=== PATIENT | male | born 1955 | race Caucasian/White ===

== ENCOUNTER 2018-02-04 11:09 | Observation (INO) | payer SELFPAY ==
--- NOTE | 2018-02-04 11:59 | ER Document Report ---
ED General - General Chief Complaint: Chest Pain Stated Complaint: CHEST PAIN Time Seen by Provider: 02/04/18 11:48 Mode of Arrival: Ambulatory Information source: Patient, Relative, [facility] Records Notes: 62-year-old male with a [id number]-lngo smoking history, no other reported past medical history presents with complaint of chest pain that started 2 hours prior to arrival while at rest. Patient states that he was watching TV when he had a sudden onset of left arm soreness that radiates now up into his left chest. Patient states that he became nauseous with this pain, diaphoretic pale and l ightheaded. Patient denies any injury to the arm or chest. He denies any prior similar symptoms, recent illness. He takes no medications on a daily basis. TRAVEL OUTSIDE OF THE [place] IN LAST 30 DAYS: No - HPI Onset: Just prior to arrival Onset/Duration: Sudden Quality of pain: Achy Severity: Moderate Associated symptoms: Chest pain, Nausea, Sweating Exacerbated by: Denies Relieved by: Denies Similar symptoms previously: No Recently seen / treated by doctor: No - Related Data Allergies/Adverse Reactions: No Known Allergies Allergy (Verified 02/04/18 17:27) Past Medical History - General Information source: Patient, [facility] Records - Social History Smoking Status: Current Every Day Smoker Cigarette use (# per day): Yes - 20 Smoking Education Provided: Yes - Smoking cessation counseling was provided for 4 minutes at the bedside Frequency of alcohol use: None Drug Abuse: None Lives with: Spouse/Significant other Family History: Reviewed & Not Pertinent Patient has suicidal ideation: No Patient has homicidal ideation: No - Medical History Medical History: Negative - Immunizations Hx Diphtheria, Pertussis, Tetanus Vaccination: Yes Review of Systems - Review of Systems Notes: REVIEW OF SYSTEMS: CONSTITUTIONAL : Denies fever, chills, . Denies recent illness. Denies weight loss, recent hospitalizations. EENT: Denies visual changes, eye pain. Denies sore throat, oral lesions, difficulty swallowing. CARDIOVASCULAR: Denies palpitations. Denies lower extremity edema. RESPIRATORY: Denies cough. Denies shortness of breath, wheezing. GASTROINTESTINAL: Denies abdominal pain or distention. Denies vomiting, or diarrhea. Denies blood in vomitus, stools, or per rectum. Denies black, tarry stools. Denies constipation. GENITOURINARY: Denies difficulty urinating, painful urination, frequency, blood in urine, testicular pain or penile discharge. MUSCULOSKELETAL: Denies back or neck pain or stiffness. Denies joint pain or swelling. SKIN: Denies rash, lesions or sores. HEMATOLOGIC : Denies easy bruising or bleeding. LYMPHATIC: Denies swollen glands. NEUROLOGICAL: Denies confusion or altered mental status. Denies loss of consciousness. Denies dizziness. Denies headache. Denies weakness or paralysis. Denies problems difficulty with ambulation, slurred speech. Denies sensory loss, numbness, or tingling. Denies seizures. PSYCHIATRIC: Denies anxiety or stress. Denies depression, suicidal ideation, or Physical Exam - Vital signs Vitals: Temp Pulse Resp BP Pulse Ox 97.8 F 58 L 28 H 106/77 96 02/04/18 11:14 02/04/18 11:14 02/04/18 11:14 02/04/18 11:14 02/04/18 11:14 - Notes Notes: PHYSICAL EXAMINATION: GENERAL: Well-appearing, well-nourished and in no acute distress. HEAD: Atraumatic, normocephalic. EYES: Pupils equal round and reactive to light, extraocular movements intact, sclera anicteric, conjunctiva are normal. ENT: Nares patent, oropharynx clear without exudates. Moist mucous membranes. NECK: Normal range of motion, supple without lymphadenopathy LUNGS: Mild expiratory wheezing. HEART: Regular rate and rhythm without murmurs ABDOMEN: Soft, nontender, nondistended abdomen. No guarding, no rebound. No masses appreciated. Musculoskeletal: Normal range of motion, no pitting or edema. No cyanosis. NEUROLOGICAL: Cranial nerves grossly intact. Normal speech, normal gait. Normal sensory, motor exams PSYCH: Normal mood, normal affect. SKIN: Warm, Dry, normal turgor, no rashes or lesions noted. Course - Re-evaluation Re-evalutation: Laboratory 02/04/18 02/04/18 02/04/18 11:57 11:57 11:57 WBC 10.5 RBC 4.79 Hgb 15.3 Hct 43.8 MCV 92 MCH 31.8 MCHC 34.8 RDW 13.7 Plt Count 239 Seg Neutrophils % 73.5 Lymphocytes % 15.2 Monocytes % 9.1 Eosinophils % 1.7 Basophils % 0.5 Absolute Neutrophils 7.7 Absolute Lymphocytes 1.6 Absolute Monocytes 1.0 Absolute Eosinophils 0.2 Absolute Basophils 0.1 PT 12.7 INR 0.91 APTT 33.7 Sodium 142.3 Potassium 4.3 Chloride 107 Carbon Dioxide 25 Anion Gap 10 BUN 13 Creatinine 0.83 Est GFR ( Amer) > 60 Est GFR (Non-Af Amer) > 60 Glucose 119 H Calcium 9.5 Total Bilirubin 0.5 Direct Bilirubin 0.3 Neonat Total Bilirubin Not Reportable Neonat Direct Bilirubin Not Reportable Neonat Indirect Bili Not Reportable AST 22 ALT 25 Alkaline Phosphatase 116 Creatine Kinase CK-MB (CK-2) Troponin I NT-Pro-B Natriuret Pep Total Protein 6.6 Albumin 4.2 Lipase 20.2 L Urine Color Urine Appearance Urine pH Ur Specific [place] Urine Protein Urine Glucose (UA) Urine Ketones Urine Blood Urine Nitrite Urine Bilirubin Urine Urobilinogen Ur Leukocyte Esterase Urine WBC (Auto) Urine RBC (Auto) Urine Bacteria (Auto) Urine Ascorbic Acid 02/04/18 02/04/18 02/04/18 11:57 11:57 15:20 WBC RBC Hgb Hct MCV MCH MCHC RDW Plt Count Seg Neutrophils % Lymphocytes % Monocytes % Eosinophils % Basophils % Absolute Neutrophils Absolute Lymphocytes Absolute Monocytes Absolute Eosinophils Absolute Basophils PT INR APTT Sodium Potassium Chloride Carbon Dioxide Anion Gap BUN Creatinine Est GFR ( Amer) Est GFR (Non-Af Amer) Glucose Calcium Total Bilirubin Direct Bilirubin Neonat Total Bilirubin Neonat Direct Bilirubin Neonat Indirect Bili AST ALT Alkaline Phosphatase Creatine Kinase 40 L CK-MB (CK-2) 0.69 Troponin I < 0.012 2.560 NT-Pro-B Natriuret Pep 400 Total Protein Albumin Lipase Urine Color Urine Appearance Urine pH Ur Specific [place] Urine Protein Urine Glucose (UA) Urine Ketones Urine Blood Urine Nitrite Urine Bilirubin Urine Urobilinogen Ur Leukocyte Esterase Urine WBC (Auto) Urine RBC (Auto) Urine Bacteria (Auto) Urine Ascorbic Acid 02/04/18 15:40 WBC RBC Hgb Hct MCV MCH MCHC RDW Plt Count Seg Neutrophils % Lymphocytes % Monocytes % Eosinophils % Basophils % Absolute Neutrophils Absolute Lymphocytes Absolute Monocytes Absolute Eosinophils Absolute Basophils PT INR APTT Sodium Potassium Chloride Carbon Dioxide Anion Gap BUN Creatinine Est GFR ( Amer) Est GFR (Non-Af Amer) Glucose Calcium Total Bilirubin Direct Bilirubin Neonat Total Bilirubin Neonat Direct Bilirubin Neonat Indirect Bili AST ALT Alkaline Phosphatase Creatine Kinase CK-MB (CK-2) Troponin I NT-Pro-B Natriuret Pep Total Protein Albumin Lipase Urine Color YELLOW Urine Appearance CLEAR Urine pH 5.0 Ur Specific [place] 1.033 Urine Protein NEGATIVE Urine Glucose (UA) NEGATIVE Urine Ketones NEGATIVE Urine Blood NEGATIVE Urine Nitrite NEGATIVE Urine Bilirubin NEGATIVE Urine Urobilinogen NEGATIVE Ur Leukocyte Esterase SMALL H Urine WBC (Auto) 9 Urine RBC (Auto) 0 Urine Bacteria (Auto) TRACE Urine Ascorbic Acid NEGATIVE Chest X-Ray 02/04/18 11:57 IMPRESSION: 1. Masslike opacity of the suprahilar right lung, concerning for malignancy. Recommend CT to further evaluate. 2. Pulmonary hyperinflation. Chest CT 02/04/18 12:45 IMPRESSION: 1. There is a spiculated 3.0 x 3.0 cm mass of the suprahilar right upper lobe with adjacent postobstructive airspace disease. There is a probable smaller adjacent spiculated mass measuring 2.5 x 2.1 cm. Findings are in keeping with primary lung malignancy. 2. No evidence of maged or distant metastatic disease. 3. Emphysema. Temp Pulse Resp BP Pulse Ox 97.8 F 58 L 28 H 106/77 96 02/04/18 11:14 02/04/18 11:14 02/04/18 11:14 02/04/18 11:14 02/04/18 11:14 62-year-old male with no reported past medical history but a [id number]-[id number] smoking history presents with complaint of chest pain that occurred while at rest at home just prior to arrival. Patient had associated nausea, diaphoresis and lightheadedness. Patient reports taking 381 mg aspirin prior to arrival. Upon arrival EKG was obtained which does show T wave inversions in the anterior and lateral leads. No ST elevation. No previous EKG for comparison. Patient d oes not appear toxic or dehydrated. He is in no acute distress. Patient did receive sublingual nitroglycerin and reported relief of chest pain. Initial troponin within normal limits. Repeat troponin II 0.56. Lovenox administered. Did discuss findings of likely lung malignancy with the patient and his significant other. Because of the driving limitations, distance to other hospitals the patient and his significant other are requesting transfer to [facility]. 02/04/18 12:46 Chest x-ray reviewed and concerning for malignancy. CT chest with contrast ordered and pending. 02/04/18 17:07 Patient was accepted by hospitalist for chest pain rule out, new spiculated mass in the lungs. Patient was accepted for admission but during there history second troponin was resulted and now 2.5. They stated that they were not going to admit the patient because they "technically did not put in and any admission orders". 02/04/18 17:15 [facility] contacted. 02/04/18 17:16 Lovenox administered. Patient reports that he is currently chest pain-free. Patient is requesting transfer to [facility]. 02/04/18 17:25 [facility] contacted again and a message was left. Awaiting callback. 02/04/18 17:45 Was contacted back by [facility]. Demographics sent and awaiting callback by Dr. Olson 02/04/18 17:57 [facility] called back to state that the patient will be wait listed. He will be the first 1 transferred in the morning after discharge. Both patient and his significant other are comfortable with this. He still remains chest pain-free. I was told that the physician I signed out to does not need to call the hospitalist again in the morning. Was told that Dr. Olson will sign out to Dr. Trevizo. Nicotine patch and as needed pain medications ordered. 02/04/18 18:03 02/04/18 18:08 - Vital Signs Vital signs: Temp Pulse Resp BP Pulse Ox 97.8 F 58 L 28 H 106/77 96 02/04/18 11:14 02/04/18 11:14 02/04/18 11:14 02/04/18 11:14 02/04/18 11:14 - Laboratory Result Diagrams: 02/04/18 11:57 02/04/18 11:57 Laboratory results interpreted by me: 02/04/18 02/04/18 02/04/18 11:57 11:57 15:40 Glucose 119 H Creatine Kinase 40 L Lipase 20.2 L Ur Leukocyte Esterase SMALL H - Diagnostic Test Radiology reviewed: Image reviewed, Reports reviewed - EKG Interpretation by Me EKG shows normal: Sinus rhythm Rate: Normal Rhythm: NSR - T wave inversions in leads V3, V4, V5. When compared to previous EKG there are: Previous EKG unavailable Critical Care Note - Critical Care Note Total time excluding time spent on procedures (mins): 45 - Minutes of critical care time spent in direct contact evaluating and reevaluating the patient, treating symptoms, reviewing labs and studies and speaking with family and consultants excluding any procedures Discharge - Discharge Clinical Impression: Lung mass, Non-ST elevation (NSTEMI) myocardial infarction, Current smoker Chest pain Qualifiers: Chest pain type: unspecified Qualified Code(s): R07.9 - Chest pain, unspecified Condition: Good Disposition: [facility]
[2018-02-04 12:12] LABS: ABSOLUTE BASOPHILS # (AUTO) 0.1 10^3/uL (0.0-0.2); ABSOLUTE EOSINOPHILS # (AUTO) 0.2 10^3/uL (0.0-0.6); ABSOLUTE LYMPHOCYTES (AUTO) 1.6 10^3/uL (0.5-4.7); ABSOLUTE NEUT (AUTO) 7.7 10^3/uL (1.7-8.2); BASOPHILS % (AUTO) 0.5 % (0-2); EOSINOPHILS % (AUTO) 1.7 % (0-6); HEMATOCRIT 43.8 % (37.9-51.0); HEMOGLOBIN 15.3 g/dL (13.5-17.0); LYMPHOCYTES % (AUTO) 15.2 % (13-45); MEAN CORPUSCULAR HEMOGLOBIN 31.8 pg (27.0-33.4); MEAN CORPUSCULAR HGB CONC 34.8 g/dL (32.0-36.0); MEAN CORPUSCULAR VOLUME 92 fl (80-97); MONOCYTES % (AUTO) 9.1 % (3-13); PLATELET COUNT 239 10^3/uL (150-450); RED BLOOD COUNT 4.79 10^6/uL (4.35-5.55); RED CELL DISTRIBUTION WIDTH 13.7 % (11.5-14.0); SEGMENTED NEUTROPHILS % (AUTO) 73.5 % (42-78); TOTAL CELLS COUNTED % (AUTO) 100 %; WHITE BLOOD COUNT 10.5 10^3/uL (4.0-10.5)
[2018-02-04] MEDS ORDERED: NITROGLYCERIN 0.4 MG/TAB 25 TAB/BOTTLE SL ONE (12:15)
[2018-02-04] MEDS ORDERED: NORMAL SALINE 1000 ML 1,000 ML IV ONE (12:15)
[2018-02-04] MEDS ORDERED: ONDANSETRON HCL INJ/PF 4 MG/2 ML SDV IV ONE (12:15)
[2018-02-04 12:19] LABS: INTERNATIONAL RATION (INR) 0.91; PROTHROMBIN TIME 12.7 SEC (11.4-15.4)
[2018-02-04 12:20] LABS: PARTIAL THROMBOPLASTIN TIME 33.7 SEC (23.5-35.8)
--- NOTE | 2018-02-04 12:30 | RADIOLOGY REPORT (SQ) ---
EXAM DESCRIPTION: CHEST 2 VIEWS COMPLETED DATE/TIME: 02/04/2018 12:17 pm REASON FOR STUDY: lower extremity edema COMPARISON: None. EXAM PARAMETERS: NUMBER OF VIEWS: two views TECHNIQUE: Digital Frontal and Lateral radiographic views of the chest acquired. RADIATION DOSE: NA LIMITATIONS: none FINDINGS: LUNGS AND PLEURA: There is a masslike opacity of the suprahilar right lung. Pulmonary hyp erinflation. MEDIASTINUM AND HILAR STRUCTURES: No masses or contour abnormalities. HEART AND VASCULAR STRUCTURES: Heart normal size. No evidence for failure. BONES: Disc degenerative disease of the thoracic spine. HARDWARE: None in the chest. OTHER: No other significant finding. IMPRESSION: 1. Masslike opacity of the suprahilar right lung, concerning for malignancy. Recommend CT to further evaluate. 2. Pulmonary hyperinflation. TECHNICAL DOCUMENTATION: JOB ID: [id number] [employer]- All Rights Reserved Reading location - IP/workstation name: [email or web address]
[2018-02-04 12:31] LABS: ALANINE AMINOTRANSFERASE 25 U/L (21-72); ALBUMIN 4.2 g/dL (3.5-5.0); ALKALINE PHOSPHATASE 116 U/L (38-126); ANION GAP 10 (5-19); ASPARTATE AMINO TRANSFERASE 22 U/L (17-59); BILIRUBIN,DIRECT 0.3 mg/dL (0.0-0.4); BILIRUBIN,TOTAL 0.5 mg/dL (0.2-1.3); BLOOD UREA NITROGEN 13 mg/dL (7-20); CALCIUM 9.5 mg/dL (8.4-10.2); CARBON DIOXIDE 25 mmol/L (22-30); CHLORIDE 107 mmol/L (98-107); GLUCOSE 119 mg/dL (75-110); LIPASE 20.2 U/L (23-300); POTASSIUM 4.3 mmol/L (3.6-5.0); SODIUM 142.3 mmol/L (137-145); TOTAL PROTEIN 6.6 g/dL (6.3-8.2)
[2018-02-04 12:43] LABS: CREATINE KINASE MB 0.69 ng/mL (<4.55); NT PRO BNP 400 pg/mL (5-900)
[2018-02-04 12:47] LABS: TROPONIN I < 0.012 ng/mL
--- NOTE | 2018-02-04 13:15 | EKG REPORT ---
SEVERITY:- ABNORMAL ECG - SINUS RHYTHM NONSPECIFIC INTRAVENTRICULAR CONDUCTION DELAY INFERIOR INFARCT, AGE INDETERMINATE ANTERIOR INFARCT, AGE INDETERMINATE : Confirmed by: Chip Gegier MD 04-Feb-2018 13:14:49
--- NOTE | 2018-02-04 14:20 | RADIOLOGY REPORT (SQ) ---
EXAM DESCRIPTION: CT CHEST WITH COMPLETED DATE/TIME: 02/04/2018 1:53 pm REASON FOR STUDY: Mass concerning for malignancy on chest x-ray COMPARISON: Same day chest radiograph TECHNIQUE: CT scan of the chest performed using helical scanning technique with dynamic intravenous contrast injection. Images reviewed with lung, soft tissue and bone windows. Reconstructed coronal and sagittal MPR and MIP images reviewed. All images stored on PACS. All CT scanners at this facility use dose modulation, iterative reconstruction, and/or weight based d osing when appropriate to reduce radiation dose to as low as reasonably achievable (ALARA). [facility]: Dose Right [facility]: CareDose [facility]: Dose Right [facility]: Teradose 4D [facility]: Mor.sl CONTRAST TYPE AND DOSE: contrast/concentration: Isovue 350.00 mg/ml; Total Contrast Delivered: 80.0 ml; Total Saline Delivered: 55.0 ml RENAL FUNCTION: GFR > 60. RADIATION DOSE: CT Rad equipment meets quality standard of care and radiation dose reduction techniq ues were employed. CTDIvol: 6.4 mGy. DLP: 292 mGy-cm. . LIMITATIONS: None. FINDINGS: LUNGS AND PLEURA: There is a spiculated 3.0 x 3.0 cm mass of the suprahilar right upper lo be with adjacent postobstructive airspace disease. There is a probable smaller adjacent spiculated m ass measuring 2.5 x 2.1 cm. Mild centrilobular and paraseptal emphysema. HILAR AND MEDIASTINAL STRUCTURES: No identified masses or abnormal nodes. HEART AND VASCULAR STRUCTURES: No aneurysm or dissection. No central pulmonary emboli. No pericardi al effusion. HARDWARE: None in the chest. UPPER ABDOMEN: No significant findings. Limited exam. THYROID AND OTHER SOFT TISSUES: No masses. No adenopathy. BONES: No significant finding. OTHER: No other significant finding. IMPRESSION: 1. There is a spiculated 3.0 x 3.0 cm mass of the suprahilar right upper lobe with adjac ent postobstructive airspace disease. There is a probable smaller adjacent spiculated mass measuring 2.5 x 2.1 cm. Findings are in keeping with primary lung malignancy. 2. No evidence of maged or distant metastatic disease. 3. Emphysema. TECHNICAL DOCUMENTATION: JOB ID: [id number] Quality ID # [id number]: Final reports with documentation of one or more dose reduction techniques (e.g., Au tomated exposure control, adjustment of the mA and/or kV according to patient size, use of iterative reconstruction technique) 2010 [employer] [facility] [facility]- All Rights Reserved Reading location - IP/workstation name: [email or web address]
[2018-02-04 16:02] LABS: APPEARANCE,URINE CLEAR; BILIRUBIN,URINE NEGATIVE (NEGATIVE); COLOR,URINE YELLOW; GLUCOSE, URINE NEGATIVE (NEGATIVE); KETONES,URINE NEGATIVE (NEGATIVE); LEUKOCYTE ESTERASE,URINE SMALL (NEGATIVE); NITRITE,URINE NEGATIVE (NEGATIVE); PROTEIN,URINE NEGATIVE (NEGATIVE); URINE SPECIFIC GRAVITY 1.033; UROBILINOGEN,URINE NEGATIVE mg/dL (<2.0)
[2018-02-04] MEDS ORDERED: FENTANYL CITRATE INJ/PF 100 MCG/2 ML AMPUL IV ONE (17:14)
--- NOTE | 2018-02-04 17:21 | EKG REPORT ---
SEVERITY:- ABNORMAL ECG - SINUS RHYTHM NONSPECIFIC INTRAVENTRICULAR CONDUCTION DELAY PROBABLE INFERIOR INFARCT, AGE INDETERMINATE ANTEROLATERAL INFARCT, AGE INDETERMINATE : Confirmed by: Chip Geiger MD 04-Feb-2018 17:20:21
[2018-02-04] MEDS: ENOXAPARIN SODIUM INJ 80 MG/0.8 ML DISP.SYRIN SUBCUT SCH ×2 (17:41→21:22)
--- NOTE | 2018-02-04 17:50 | PDOC CONSULTATION ---
Consultation Consult Date: 02/04/18 Attending physician:: FELICITY PERDOMO Consult reason:: Chest Pain, Lung Mass History of Present Illness Admission Date/PCP: 02/04/18 15:53 BRITT PERRY PA-C Patient complains of: CP History of Present Illness: JEVON MEDEROS is a 62 year old male is no significant past medical history. He is an active smoker, and has a approx 75ppy history. Mr Mederos reports he started having 8/10 chest pain today @ 10am while watching television and having his morning coffee. He described pain as persistent and unchanging. CP finally stopped with the administration of NG x 1 in the ER. He also reports N/V, left arm numbness, sweating, and his reports he lost the color in his face at onset. He denies F/C or acute issues with breathing. CXR in ER had incidental finding of suspected mass in RUL. F/U CT w/contrast showed 3.0 x 3.0 spiculated mass of suprahilar RUL w/ post-obstructive airsapce disease, as well as a probable smaller adjacent spiculated mass measuring 2.5 x 2.1 cm. Per radiology Findings are in keeping with primary lung malignancy. No evidence of maged or distant mets. At the time of my evaluation the patient was resting comfortably in bed with a HR in the mid 60s and on room air. He denies previous episodes of CP or similiar events in the past. He follows with physician 1x a year for annual physical and only takes fish oils and multi-vitamin at home. He was accompanied by at time of evaluation. Past Medical History Cardiac Medical History: Reports: None Pulmonary Medical History: Reports: None EENT Medical History: Reports: None Neurological Medical History: Reports: None Endocrine Medical History: Reports: None Renal/ Medical History: Reports: None Malignancy Medical History: Reports: None GI Medical History: Reports: None Musculoskeltal Medical History: Reports: None, Other - Left Ankle pain/detoriation Skin Medical History: Reports: None Psychiatric Medical History: Reports: None Hematology: Reports: None Past Surgical History Past Surgical History: Reports: None Social History Lives with: Spouse/Significant other Smoking Status: Current Every Day Smoker - Advance Directive Resuscitation Status: Full Code Family History Family History: Mom- from swelling of brain possibly related to polio. DM. Dad- from MS Brother- cancer of unknown origin Sister- COPD Parental Family History Reviewed: Yes Children Family History Reviewed: Yes Sibling(s) Family History Reviewed.: Yes Medication/Allergy Allergies/Adverse Reactions: No Known Allergies Allergy (Verified 02/04/18 17:27) Review of Systems Constitutional: ABSENT: chills, fever(s), headache(s), weight gain, weight loss Cardiovascular: PRESENT: as per HPI Respiratory: PRESENT: as per HPI Gastrointestinal: ABSENT: abdominal pain, constipation, diarrhea, hematemesis, hematochezia Genitourinary: ABSENT: dysuria, hematuria Musculoskeletal: PRESENT: other - chronic left ankle pain Integumentary: ABSENT: rash, wounds Neurological: ABSENT: abnormal speech, confusion, dizziness, focal weakness, syncope Hematologic/Lymphatic: ABSENT: easy bleeding, easy bruising Physical Exam Vital Signs: Temp Pulse Resp BP Pulse Ox 97.8 F 58 L 28 H 106/77 96 02/04/18 11:14 02/04/18 11:14 02/04/18 11:14 02/04/18 11:14 02/04/18 11:14 Intake & Output 02/03/18 02/04/18 02/05/18 06:59 06:59 06:59 Intake Total 1000 Balance 1000 Weight 65.771 kg General appearance: PRESENT: no acute distress, thin Head exam: PRESENT: atraumatic Eye exam: PRESENT: PERRLA Ear exam: PRESENT: normal external ear exam Mouth exam: PRESENT: moist, tongue midline Teeth exam: PRESENT: other - dentures present Neck exam: ABSENT: carotid bruit, JVD, lymphadenopathy, thyromegaly Respiratory exam: PRESENT: other - Good air flow exchange. Possible coarse sounds in LLL and RUL. No wheezing or crackles Cardiovascular exam: PRESENT: RRR, +S1, +S2 Pulses: PRESENT: normal dorsalis pedis pul Vascular exam: PRESENT: normal capillary refill GI/Abdominal exam: PRESENT: soft, other - non-tender. non-distended Extremities exam: PRESENT: other - no edema BLLLE Neurological exam: PRESENT: alert, awake, oriented to person, oriented to place, oriented to time, oriented to situation, CN II-XII grossly intact. ABSENT: motor sensory deficit Psychiatric exam: PRESENT: appropriate affect, normal mood. ABSENT: homicidal ideation, suicidal ideation Results Laboratory Results: 02/04/18 11:57 02/04/18 11:57 02/04/18 02/04/18 02/04/18 11:57 11:57 15:40 WBC 10.5 RBC 4.79 Hgb 15.3 Hct 43.8 MCV 92 MCH 31.8 MCHC 34.8 RDW 13.7 Plt Count 239 Seg Neutrophils % 73.5 Lymphocytes % 15.2 Monocytes % 9.1 Eosinophils % 1.7 Basophils % 0.5 Absolute Neutrophils 7.7 Absolute Lymphocytes 1.6 Absolute Monocytes 1.0 Absolute Eosinophils 0.2 Absolute Basophils 0.1 Sodium 142.3 Potassium 4.3 Chloride 107 Carbon Dioxide 25 Anion Gap 10 BUN 13 Creatinine 0.83 Est GFR ( Amer) > 60 Est GFR (Non-Af Amer) > 60 Glucose 119 H Calcium 9.5 Total Bilirubin 0.5 AST 22 ALT 25 Alkaline Phosphatase 116 Total Protein 6.6 Albumin 4.2 Lipase 20.2 L Urine Color YELLOW Urine Appearance CLEAR Urine pH 5.0 Ur Specific [place] 1.033 Urine Protein NEGATIVE Urine Glucose (UA) NEGATIVE Urine Ketones NEGATIVE Urine Blood NEGATIVE Urine Nitrite NEGATIVE Ur Leukocyte Esterase SMALL H Urine WBC (Auto) 9 Urine RBC (Auto) 0 02/04/18 02/04/18 02/04/18 11:57 11:57 15:20 Creatine Kinase 40 L CK-MB (CK-2) 0.69 Troponin I < 0.012 2.560 NT-Pro-B Natriuret Pep 400 EKG Comments: indeterminate. EKG results x 2. See chart. Possible anterior-inferior infart of undeterminated age. No changes between EKGs. Impressions: Chest X-Ray 02/04/18 11:57 IMPRESSION: 1. Masslike opacity of the suprahilar right lung, concerning for malignancy. Recommend CT to further evaluate. 2. Pulmonary hyperinflation. Chest CT 02/04/18 12:45 IMPRESSION: 1. There is a spiculated 3.0 x 3.0 cm mass of the suprahilar right upper lobe with adjacent postobstructive airspace disease. There is a probable smaller adjacent spiculated mass measuring 2.5 x 2.1 cm. Findings are in keeping with primary lung malignancy. 2. No evidence of maged or distant metastatic disease. 3. Emphysema. Assessment & Plan - Diagnosis (1) Non-ST elevation (NSTEMI) myocardial infarction Is this a current diagnosis for this admission?: Yes (2) Current smoker Is this a current diagnosis for this admission?: Yes (3) Lung mass Is this a current diagnosis for this admission?: Yes - Time Time Spent: 50 to 70 Minutes Smoking Cessation Education: 3 to 10 minutes Medications reviewed and adjusted accordingly: Yes Anticipated discharge: Other - Transfer to facility with open Cath services as soon as possible. - Inpatient Certification Medical Necessity: Other - Patient needs inpatient services to trend EKG/troponins and for Title Clerk services. He also needs further evaluation of lung mass. - Plan Summary Plan Summary: (1) Non-ST elevation (NSTEMI) myocardial infarction Is this a current diagnosis for this admission?: Yes Trending up of troponins suggest NSTEMI. Though STEMI cannot be completely excluded given his EKG in not determinate nor has been read by a patrol deputy sheriff. Serial enzymes and EKGs should be continued and attempt should be made to transfer patient to hospital with Title Clerk services [facility]. Patient is currently stable and reports no symptoms. -recommend stat ASA -case discussed with Cardiology and per there recommendations patient needs to be transferred to OSH with appropriate services -check FLP -continue with telemetry monitoring and w/serial cardiac enzymes + ekgs -cardiac diet -monitor for need for BB -check ECHO and monitor for need for ASIM/ARB (2) Current smoker Is this a current diagnosis for this admission?: Yes -cessation encouraged. consider nicotine replacement therapy (3) Lung mass Is this a current diagnosis for this admission?: Yes -incidental finding. likely needs biopsy. -needs further work-up by oncology and/or pulmonology thank you for this consult. sorry we could not be of further service to you or the patient.
[2018-02-04] MEDS ORDERED: NICOTINE 21 MG/24 HR PATCH.TD24 TD PRN (17:58)
[2018-02-04] MEDS ORDERED: MORPHINE SULFATE 10 MG/ML INJ IV PRN (17:59)
[2018-02-04] MEDS ORDERED: ASPIRIN 81 MG TABLET, CHEWABLE PO ONE (18:07)
[2018-02-04] MEDS ORDERED: ATORVASTATIN CALCIUM 80 MG TABLET PO ONE (19:26)
[2018-02-04] MEDS ORDERED: RINGERS SOLUTION,LACTATED 1,000 ML IV ONE (19:31)
[2018-02-04 20:03] LABS: APPEARANCE,URINE CLEAR; BILIRUBIN,URINE NEGATIVE (NEGATIVE); COLOR,URINE YELLOW; GLUCOSE, URINE NEGATIVE (NEGATIVE); KETONES,URINE NEGATIVE (NEGATIVE); LEUKOCYTE ESTERASE,URINE SMALL (NEGATIVE); NITRITE,URINE NEGATIVE (NEGATIVE); PROTEIN,URINE NEGATIVE (NEGATIVE); URINE SPECIFIC GRAVITY 1.035; UROBILINOGEN,URINE NEGATIVE mg/dL (<2.0)
[2018-02-04 21:25] VITALS: BP 119/65
[2018-02-05] MEDS ORDERED: ASPIRIN 81 MG TABLET, CHEWABLE PO SCH (10:00)
--- NOTE | 2018-02-05 11:39 | EKG REPORT ---
SEVERITY:- ABNORMAL ECG - SINUS RHYTHM NONSPECIFIC INTRAVENTRICULAR CONDUCTION DELAY INFERIOR INFARCT, AGE INDETERMINATE ANTERIOR INFARCT, AGE INDETERMINATE : Confirmed by: Chip Geiger MD 05-Feb-2018 11:38:47
== END 2018-02-04 21:33 | disposition short-term general hospital (02) ==
LOC: ER 11:09 → EH 15:53
PROVIDERS: ADMIT Internal Medicine; ATTEND Internal Medicine
PROC: HZ31ZZZ Individual Counseling for Substance Abuse Treatment, Behavioral (ICD-10-PCS; principal; 2018-02-04)
DX: I21.4 Non-ST elevation (NSTEMI) myocardial infarction (principal); R91.8 Other nonspecific abnormal finding of lung field; R61 Generalized hyperhidrosis; R42 Dizziness and giddiness; R20.0 Anesthesia of skin; R11.2 Nausea with vomiting, unspecified; F17.210 Nicotine dependence, cigarettes, uncomplicated; G89.29 Other chronic pain; M25.572 Pain in left ankle and joints of left foot; Z80.9 Family history of malignant neoplasm, unspecified; Z82.5 Family history of asthma and other chronic lower respiratory diseases; Z82.49 Family history of ischemic heart disease and other diseases of the circulatory system
CPT/HCPCS: 93005; 99406; 99291; 96372; 96361; 96374; 36415; 82553; 82550; 83690; 85025; 85610; 85730; 80053; 81001; 84484; 83880; 71046; 71260; 93010; J2405; J7030; J7120; J1650

== ENCOUNTER → 2018-07-04 | Outpatient (CLI) | payer BC ==
--- NOTE | 2018-07-04 14:41 | RADIOLOGY REPORT (SQ) ---
EXAM DESCRIPTION: CT CHEST WITH COMPLETED DATE/TIME: 07/04/2018 2:03 pm REASON FOR STUDY: C34.11 MALIGNANT NEOPLASM OF UPPER LOBE, RIGHT BRONCHUS OR LUNG C34.11 MALIGNANT NEOPLASM OF UPPER LOBE, RIGHT BRONCHUS OR L COMPARISON: 02/04/2018 TECHNIQUE: CT scan of the chest performed using helical scanning technique with dynamic intravenous contrast injection. Images reviewed with lung, soft tissue and bone windows. Reconstructed coronal and sagittal MPR and MIP images reviewed. All images stored on PACS. All CT scanners at this facility use dose modulation, iterative reconstruction, and/or weight based d osing when appropriate to reduce radiation dose to as low as reasonably achievable (ALARA). [facility]: Dose Right [facility]: CareDose [facility]: Dose Right [facility]: Teradose 4D [facility]: Responsa CONTRAST TYPE AND DOSE: 86 mL Omnipaque 350- low osmolar. RENAL FUNCTION: Creatinine 1 RADIATION DOSE: . LIMITATIONS: None. FINDINGS: LUNGS AND PLEURA: Spiculated 3 cm suprahilar right upper lobe mass on image 39 series 6. This is relatively stable. A 2nd mass located more peripherally in the right upper lobe on the earli er study is no longer present. No new pulmonary masses or nodules. HILAR AND MEDIASTINAL STRUCTURES: No identified masses or abnormal nodes. HEART AND VASCULAR STRUCTURES: No aneurysm or dissection. No central pulmonary emboli. No pericardi al effusion. HARDWARE: Pacemaker/defibrillator. UPPER ABDOMEN: See separate report of the CT of the abdomen. THYROID AND OTHER SOFT TISSUES: No significant finding. BONES: No significant finding. OTHER: No other significant finding. IMPRESSION: Persistent, relatively stable suprahilar right upper lobe lung mass. 2nd mass present o n prior study is no longer evident. The overall appearance is of improvement. TECHNICAL DOCUMENTATION: JOB ID: [id number] Quality ID # [id number]: Final reports with documentation of one or more dose reduction techniques (e.g., Au tomated exposure control, adjustment of the mA and/or kV according to patient size, use of iterative reconstruction technique) 2010 [employer]- All Rights Reserved Reading location - IP/workstation name: [email or web address]
--- NOTE | 2018-07-04 15:07 | RADIOLOGY REPORT (SQ) ---
EXAM DESCRIPTION: CT ABD/PELVIS WITH IV ORAL COMPLETED DATE/TIME: 07/04/2018 2:03 pm REASON FOR STUDY: C34.11 MALIGNANT NEOPLASM OF UPPER LOBE, RIGHT BRONCHUS OR LUNG C34.11 MALIGNANT NEOPLASM OF UPPER LOBE, RIGHT BRONCHUS OR L COMPARISON: None. TECHNIQUE: CT scan of the abdomen and pelvis performed using helical scanning technique with dynamic intravenous contrast injection. Oral contrast. Images reviewed with lung, soft tissue, and bone win dows. Reconstructed coronal and sagittal MPR images reviewed. Delayed images for evaluation of the ur inary system also acquired. All images stored on PACS. All CT scanners at this facility use dose modulation, iterative reconstruction, and/or weight based d osing when appropriate to reduce radiation dose to as low as reasonably achievable (ALARA). [facility]: Dose Right [facility]: CareDose [facility]: Dose Right [facility]: Teradose 4D [facility]: [place] CONTRAST TYPE AND DOSE: contrast/concentration: Isovue 350.00 mg/ml; Total Contrast Delivered: 86.0 ml; Total Saline Delivered: 69.0 ml RENAL FUNCTION: Creatinine 1 RADIATION DOSE: CT Rad equipment meets quality standard of care and radiation dose reduction techniq ues were employed. CTDIvol: 5.0 - 5.4 mGy. DLP: 742 mGy-cm.. LIMITATIONS: None. FINDINGS: LOWER CHEST: See separate report of the CT of the chest. LIVER: Normal size. No masses. No dilated ducts. SPLEEN: Normal size. No focal lesions. PANCREAS: No masses. No significant calcifications. No adjacent inflammation or peripancreatic fluid collections. Pancreatic duct not dilated. GALLBLADDER: No identified stones by CT criteria. No inflammatory changes to suggest cholecystitis. ADRENAL GLANDS: No significant masses or asymmetry. RIGHT KIDNEY AND URETER: No solid masses. No significant calcifications. No hydronephrosis or hyd roureter. LEFT KIDNEY AND URETER: No solid masses. No significant calcifications. No hydronephrosis or hydr oureter. AORTA AND VESSELS: No aneurysm. No dissection. Renal arteries, SMA, celiac without stenosis. RETROPERITONEUM: No retroperitoneal adenopathy, hemorrhage or masses. BOWEL AND PERITONEAL CAVITY: No masses or inflammatory changes. No free fluid or peritoneal masses. APPENDIX: Surgically absent. PELVIS: No mass. No free fluid. Normal bladder. ABDOMINAL WALL: No masses. No hernias. BONES: No significant or acute findings. OTHER: No other significant finding. IMPRESSION: NO SIGNIFICANT OR ACUTE FINDING IN THE ABDOMEN OR PELVIS ON CT SCAN WITH IV CONTRAST. TECHNICAL DOCUMENTATION: JOB ID: [id number] Quality ID # [id number]: Final reports with documentation of one or more dose reduction techniques (e.g., Au tomated exposure control, adjustment of the mA and/or kV according to patient size, use of iterative reconstruction technique) 2010 [employer]- All Rights Reserved Reading location - IP/workstation name: [email or web address]
== END ==
LOC: RAD 12:39
PROVIDERS: ATTEND Physician Assistant Medical
DX: C34.11 Malignant neoplasm of upper lobe, right bronchus or lung (principal)
CPT/HCPCS: 71260; 74177; 82565

== ENCOUNTER 2018-10-07 15:21 | Inpatient (IN) | payer BC ==
[2018-10-07] MEDS ORDERED: NORMAL SALINE 1000 ML 1,000 ML IV ONE (15:42)
[2018-10-07] MEDS ORDERED: ACETAMINOPHEN 325 MG TABLET PO ONE (15:42)
[2018-10-07] MEDS ORDERED: CEFEPIME 2 GM/D5W RTU 2 GM/50 ML RTUPB IV ONE (15:45)
[2018-10-07] MEDS ORDERED: VANCOMYCIN HCL INJ 1000 MG VIAL IV ONE (15:45)
--- NOTE | 2018-10-07 15:49 | ER Document Report ---
ED Medical Screen (RME) - General Chief Complaint: Ankle Pain Stated Complaint: FOOT PAIN Time Seen by Provider: 10/07/18 15:42 Primary Care Provider: MARTINA PURDY PA-C [Primary Care Provider] - Follow up as needed Mode of Arrival: Wheelchair Information source: Patient Notes: 63-year-old male presented to ED for treatment of septic ankle wound. He was se nt by Dr. Cordero for blood work and treatment for sepsis. He did recommend antibiotics and requested that he be called promptly with results of labs and x- rays. Patient does have a elevated temperature with tachycardia and hypotension. Sepsis protocol has been started as well as antibiotics. Patient is alert oriented respirations regular and unlabored. I have greeted and performed a rapid initial assessment of this patient. A comprehensive ED assessment and evaluation of the patient, analysis of test results and completion of medical decision making process will be conducted by an additional ED providers. TRAVEL OUTSIDE OF THE [place] IN LAST 30 DAYS: No - Related Data Allergies/Adverse Reactions: No Known Allergies Allergy (Verified 02/04/18 19:47) Past Medical History Renal/ Medical History: Denies: Hx Peritoneal Dialysis - Immunizations Hx Diphtheria, Pertussis, Tetanus Vaccination: Yes Physical Exam - Vital signs Vitals: Temp Pulse Resp BP Pulse Ox 100.8 F H 138 H 15 75/44 L 94 10/07/18 15:33 10/07/18 15:33 10/07/18 15:33 10/07/18 15:33 10/07/18 15:33 Course - Vital Signs Vital signs: Temp Pulse Resp BP Pulse Ox 100.8 F H 138 H 15 75/44 L 94 10/07/18 15:33 10/07/18 15:33 10/07/18 15:33 10/07/18 15:33 10/07/18 15:33 Doctor's Discharge - Discharge Referrals: MARTINA PURDY PA-C [Primary Care Provider] - Follow up as needed
[2018-10-07] MEDS ORDERED: HYDROCORTISONE SOD SUCCINATE INJ/PF 100 MG/2 ML SDV IV ONE (15:57)
[2018-10-07] MEDS ORDERED: RINGERS SOLUTION,LACTATED 1,000 ML IV ONE ×2 (15:58→19:50)
[2018-10-07 16:20] LABS: HEMATOCRIT 38.8 % (37.9-51.0); HEMOGLOBIN 12.9 g/dL (13.5-17.0); MEAN CORPUSCULAR HEMOGLOBIN 31.6 pg (27.0-33.4); MEAN CORPUSCULAR HGB CONC 33.2 g/dL (32.0-36.0); MEAN CORPUSCULAR VOLUME 95 fl (80-97); PLATELET COUNT 95 10^3/uL (150-450); RED BLOOD COUNT 4.08 10^6/uL (4.35-5.55); RED CELL DISTRIBUTION WIDTH 15.6 % (11.5-14.0); WHITE BLOOD COUNT 13.5 10^3/uL (4.0-10.5)
[2018-10-07 16:22] LABS: INTERNATIONAL RATION (INR) 1.27
[2018-10-07 16:27] LABS: ALKALINE PHOSPHATASE 228 U/L (38-126); ANION GAP 15 (5-19); ASPARTATE AMINO TRANSFERASE 43 U/L (17-59); BILIRUBIN,DIRECT 1.9 mg/dL (0.0-0.4); BILIRUBIN,TOTAL 3.1 mg/dL (0.2-1.3); BLOOD UREA NITROGEN 33 mg/dL (7-20); CALCIUM 9.7 mg/dL (8.4-10.2); CARBON DIOXIDE 22 mmol/L (22-30); CHLORIDE 92 mmol/L (98-107); POTASSIUM 3.7 mmol/L (3.6-5.0); TOTAL PROTEIN 5.3 g/dL (6.3-8.2)
--- NOTE | 2018-10-07 16:31 | ER Document Report ---
ED General - General Chief Complaint: Ankle Pain Stated Complaint: FOOT PAIN Time Seen by Provider: 10/07/18 15:42 Mode of Arrival: Wheelchair Notes: Patient is a 63-year-old male with history of stage III lung cancer that presents to the emergency department for chief complaint of fever, left leg redness and swelling. Patient reports he has been having on and off fevers for the past month or so, but noticed on his left leg the redness and streaking up his leg over the past 2 days, he was at his oncologist office today, and they are concerned because he was tachycardic, overall did not look well. He is currently on steroids and CellCept, for an autoimmune hepatitis, that he got from 1 of the treatments for his lung cancer. He had a fever of 101 F, and was borderline hypotensive in the office. He states that he has been lightheaded but has not passed out. He currently rates his pain as a 6 out of 10 in his left ankle, and is worse with putting any weight on it. He said less of an appetite recently as well, and has felt his heart racing. He denies having chest pain or shortness of breath. Denies having any nausea or vomiting. Past Medical History: Stage III lung carcinoma, CAD Past Surgical History: Pacemaker Social History: Former smoker, denies alcohol or drug use. Family History: Reviewed and noncontributory for presenting illness Allergies: Reviewed, see documented allergy list. REVIEW OF SYSTEMS: Other than noted above, the 12 point review of systems was reviewed with the patient and were negative, all pertinent findings are included in the HPI. PHYSICAL EXAMINATION: Vital signs reviewed, nursing noted reviewed. GENERAL: Ill-appearing male, appears uncomfortable. HEAD: Atraumatic, normocephalic. EYES: Eyes appear normal, extraocular movements intact, sclera anicteric, conjunctiva are normal. ENT: nares patent, oropharynx clear without exudates. Moist mucous membranes. NECK: Normal range of motion, supple without lymphadenopathy LUNGS: Lung sounds diminished on exam, but no wheezing, rhonchi or rales. HEART: Heart rate tachycardic, regular rhythm, no audible murmur ABDOMEN: Soft, nontender, normoactive bowel sounds. No rebound, guarding, or rigidity. No masses appreciated. EXTREMITIES: Left ankle is erythematous, and tender to palpate, with lymphangit is extending up the left leg, no calf tenderness. The rest the patient's extremity exam is grossly unremarkable. With good range of motion and nontender in the other extremities. NEUROLOGICAL: No focal neurological deficits. Moves all extremities spontaneously Motor and sensory grossly intact on exam. PSYCH: Normal mood, normal affect. SKIN: Warm, Dry, normal turgor, the left ankle is erythematous and swollen, with lymphangitis streaking up the left leg TRAVEL OUTSIDE OF THE [place] IN LAST 30 DAYS: No - Related Data Allergies/Adverse Reactions: No Known Allergies Allergy (Verified 02/04/18 19:47) Past Medical History - General Information source: Patient - Social History Smoking Status: Former Smoker Family History: Reviewed & Not Pertinent Renal/ Medical History: Denies: Hx Peritoneal Dialysis - Immunizations Hx Diphtheria, Pertussis, Tetanus Vaccination: Yes Physical Exam - Vital signs Vitals: Temp Pulse Resp BP Pulse Ox 100.8 F H 138 H 15 75/44 L 94 10/07/18 15:33 10/07/18 15:33 10/07/18 15:33 10/07/18 15:33 10/07/18 15:33 Course - Re-evaluation Re-evalutation: Patient seen and examined vital signs reviewed. Laboratory data and imaging were ordered as appropriate for the patient's presenting symptoms and complaint, with consideration of any critical or life threatening conditions that may be associated with their obtained history and exam as noted above. Patient was treated with IV fluid bolusing, for resuscitation, as the patient was initially hypotensive and tachycardic, he started on broad-spectrum antibiotics with cefepime 2 g, and vancomycin 1 g. Results were reviewed when available and demonstrated leukocytosis, with significantly elevated lactic acid, and hyperglycemia, consistent with severe sepsis, secondary to cellulitis as noted on exam. The patient was re-evaluated and was improving, blood pressure was stable, map greater than 65 after fluids, heart rate came down to the low 100s. Evaluation was most consistent with severe sepsis, secondary to cellulitis, leukocytosis Results were discussed with the patient at this point after careful consideration I feel that that patient should be admitted to the hospital. This was discussed with the patient that it is in the best interest for their care to be admitted for further evaluation and management. Patient agreed with this plan of care. A call was placed to the admitting physician, Dr. Shah who graciously accepted the patient onto their service. *Note is created using voice recognition software and may contain spelling, syntax or grammatical errors. Laboratory 10/07/18 10/07/18 10/07/18 15:55 15:55 15:55 WBC 13.5 H RBC 4.08 L Hgb 12.9 L Hct 38.8 MCV 95 MCH 31.6 MCHC 33.2 RDW 15.6 H Plt Count 95 L Lymph % (Auto) Not Reportable [place] % (Auto) Not Reportable Eos % (Auto) Not Reportable Baso % (Auto) Not Reportable Absolute Neuts (auto) Not Reportable Absolute Lymphs (auto) Not Reportable Absolute Monos (auto) Not Reportable Absolute Eos (auto) Not Reportable Absolute Basos (auto) Not Reportable Total Counted 100 Seg Neutrophils % Not Reportable Seg Neuts % (Manual) 70 Band Neutrophils % 27 H Lymphocytes % (Manual) 0 L Monocytes % (Manual) 1 L Eosinophils % (Manual) 0 Basophils % (Manual) 0 Metamyelocytes % 2 H Abs Neuts (Manual) 13.4 H Abs Lymphs (Manual) 0.0 L Abs Monocytes (Manual) 0.1 Absolute Eos (Manual) 0.0 Abs Basophils (Manual) 0.0 Platelet Comment DECREASED Anisocytosis 1+ PT 16.0 H INR 1.27 Sodium 129.3 L Potassium 3.7 Chloride 92 L Carbon Dioxide 22 Anion Gap 15 BUN 33 H Creatinine 1.09 Est GFR ( Amer) > 60 Est GFR (MDRD) Non-Af > 60 Glucose 498 H* POC Glucose Lactic Acid Calcium 9.7 Total Bilirubin 3.1 H Direct Bilirubin 1.9 H Neonat Total Bilirubin Not Reportable Neonat Direct Bilirubin Not Reportable Neonat Indirect Bili Not Reportable AST 43 ALT 57 Alkaline Phosphatase 228 H Total Protein 5.3 L Albumin 3.0 L 10/07/18 10/07/18 15:55 16:05 WBC RBC Hgb Hct MCV MCH MCHC RDW Plt Count Lymph % (Auto) [place] % (Auto) Eos % (Auto) Baso % (Auto) Absolute Neuts (auto) Absolute Lymphs (auto) Absolute Monos (auto) Absolute Eos (auto) Absolute Basos (auto) Total Counted Seg Neutrophils % Seg Neuts % (Manual) Band Neutrophils % Lymphocytes % (Manual) Monocytes % (Manual) Eosinophils % (Manual) Basophils % (Manual) Metamyelocytes % Abs Neuts (Manual) Abs Lymphs (Manual) Abs Monocytes (Manual) Absolute Eos (Manual) Abs Basophils (Manual) Platelet Comment Anisocytosis PT INR Sodium Potassium Chloride Carbon Dioxide Anion Gap BUN Creatinine Est GFR ( Amer) Est GFR (MDRD) Non-Af Glucose POC Glucose 492 H* Lactic Acid 5.9 H Calcium Total Bilirubin Direct Bilirubin Neonat Total Bilirubin Neonat Direct Bilirubin Neonat Indirect Bili AST ALT Alkaline Phosphatase Total Protein Albumin Ankle X-Ray 10/07/18 15:42 IMPRESSION: 1. Moderate to moderate severe arthritic changes at the left ankle maybe on the basis of inflammatory arthrititides. Soft tissue swelling. Correlation suggested. 2. No acute fracture. Chest X-Ray 10/07/18 15:42 IMPRESSION: 1. Significant interval increase in size of the right suprahilar--right upper lobe mass since the prior study dated 02/04/2018. Further evaluation with CT chest with IV contrast suggested. 2. Left-sided cardiac pacemaker, new finding since the prior examination. - Vital Signs Vital signs: Temp Pulse Resp BP Pulse Ox 100.8 F H 138 H 15 75/44 L 94 10/07/18 15:33 10/07/18 15:33 10/07/18 15:33 10/07/18 15:33 10/07/18 15:33 - Laboratory Result Diagrams: 10/07/18 15:55 10/07/18 15:55 Laboratory results interpreted by me: 10/07/18 10/07/18 10/07/18 15:55 15:55 15:55 WBC 13.5 H RBC 4.08 L Hgb 12.9 L RDW 15.6 H Plt Count 95 L Band Neutrophils % 27 H Lymphocytes % (Manual) 0 L Monocytes % (Manual) 1 L Metamyelocytes % 2 H Abs Neuts (Manual) 13.4 H Abs Lymphs (Manual) 0.0 L PT 16.0 H Sodium 129.3 L Chloride 92 L BUN 33 H Glucose 498 H* POC Glucose Lactic Acid Total Bilirubin 3.1 H Direct Bilirubin 1.9 H Alkaline Phosphatase 228 H Total Protein 5.3 L Albumin 3.0 L 10/07/18 10/07/18 15:55 16:05 WBC RBC Hgb RDW Plt Count Band Neutrophils % Lymphocytes % (Manual) Monocytes % (Manual) Metamyelocytes % Abs Neuts (Manual) Abs Lymphs (Manual) PT Sodium Chloride BUN Glucose POC Glucose 492 H* Lactic Acid 5.9 H Total Bilirubin Direct Bilirubin Alkaline Phosphatase Total Protein Albumin - EKG Interpretation by Me Additional EKG results interpreted by me: EKG demonstrates sinus tachycardia with a ventricular rate of 112 bpm, left axis deviation, QTC 440 ms, rare PVC noted. No ST elevation. This is compared to prior EKG from 02/04/2018. Critical Care Note - Critical Care Note Total time excluding time spent on procedures (mins): 38 Comments: Critical care time 38 minutes exclusive from separate billable procedures for a patient requiring complex medical decision making, and high potential for clinical deterioration. In a patient with severe sepsis, requiring fluid resuscitation, close monitoring, and ultimately admission to the hospital. Time spent obtaining history from patient or surrogate, discussions with consultants, development of treatment plan with patient or surrogate, evaluation of patient's response to treatment, examination of patient, ordering and performing treatments and interventions, ordering and review of laboratory studies, re- evaluation of patient's condition, ordering and review of radiographic studies and review of old charts Discharge - Discharge Clinical Impression: Severe sepsis, Hyperglycemia Cellulitis Qualifiers: Site of cellulitis: extremity Site of cellulitis of extremity: lower extremity Laterality: left Qualified Code(s): L03.116 - Cellulitis of left lower limb Leukocytosis Qualifiers: Leukocytosis type: bandemia Qualified Code(s): D72.825 - Bandemia Condition: Serious Disposition: ADMITTED INPATIENT Admitting Provider: Pablo (Hospitalist) Unit Admitted: [facility]
[2018-10-07] MEDS ORDERED: FENTANYL CITRATE INJ/PF 100 MCG/2 ML AMPUL IV ONE (16:43)
[2018-10-07 16:44] LABS: GLUCOSE 498 mg/dL (75-110)
[2018-10-07 16:45] LABS: ABSOLUTE MONOCYTES # (MANUAL) 0.1 10^3/uL (0.1-1.4); BASOPHILS % (MANUAL) 0 % (0-2); EOSINOPHILS % (MANUAL) 0 % (0-6); LYMPHOCYTES % (MANUAL) 0 % (13-45); METAMYELOCYTES % (MANUAL) 2 % (0); MONOCYTES % (MANUAL) 1 % (3-13); SEGMENTED NEUTROPHILS % (MAN) 70 % (42-78); TOTAL CELLS COUNTED 100
[2018-10-07 16:46] LABS: ANISOCYTOSIS 1+; PLATELET COMMENT DECREASED
[2018-10-07 16:50] LABS: BAND NEUTROPHILS % (MANUAL) 27 % (3-5)
--- NOTE | 2018-10-07 17:42 | RADIOLOGY REPORT (SQ) ---
EXAM DESCRIPTION: ANKLE LEFT COMPLETE COMPLETED DATE/TIME: 10/07/2018 4:36 pm REASON FOR STUDY: cellulitis COMPARISON: None. NUMBER OF VIEWS: Three views. TECHNIQUE: AP, lateral, and oblique radiographic images acquired of the left ankle. LIMITATIONS: None. FINDINGS: MINERALIZATION: Osteopenia. BONES: Moderate severe narrowing at the ankle joint with subchondral cystic changes and mild subchon dral sclerosis. No acute fracture. Small plantar calcaneal spur. JOINTS: See above. SOFT TISSUES: Soft tissue swelling. OTHER: No other significant finding. IMPRESSION: 1. Moderate to moderate severe arthritic changes at the left ankle maybe on the basis o f inflammatory arthrititides. Soft tissue swelling. Correlation suggested. 2. No acute fracture. TECHNICAL DOCUMENTATION: JOB ID: [id number] [employer]- All Rights Reserved Reading location - IP/workstation name: [email or web address]
--- NOTE | 2018-10-07 17:42 | RADIOLOGY REPORT (SQ) ---
EXAM DESCRIPTION: CHEST 2 VIEWS COMPLETED DATE/TIME: 10/07/2018 4:36 pm REASON FOR STUDY: sepsis COMPARISON: 02/04/2018. EXAM PARAMETERS: NUMBER OF VIEWS: two views TECHNIQUE: Digital Frontal and Lateral radiographic views of the chest acquired. RADIATION DOSE: NA LIMITATIONS: none FINDINGS: LUNGS AND PLEURA: Significant interval increase in size of the right suprahilar--right up per lung mass measures approximately 8.0 cm, since the prior study dated 02/04/2018. The left lung r emains clear. No pneumothorax or pleural effusion. MEDIASTINUM AND HILAR STRUCTURES: No masses or contour abnormalities. HEART AND VASCULAR STRUCTURES: Heart normal size. No evidence for failure. BONES: No acute findings. HARDWARE: Left-sided cardiac pacemaker, new finding since the prior study. OTHER: No other significant finding. IMPRESSION: 1. Significant interval increase in size of the right suprahilar--right upper lobe mass since the prior study dated 02/04/2018. Further evaluation with CT chest with IV contrast suggested . 2. Left-sided cardiac pacemaker, new finding since the prior examination. COMMENT: 1. Results of this examination were discussed with emergency department provider on 019 at 16:41 hours. TECHNICAL DOCUMENTATION: JOB ID: [id number] [employer]- All Rights Reserved Reading location - IP/workstation name: [email or web address]
[2018-10-07] MEDS ORDERED: INSULIN REG, HUMAN 100 UNIT/ML 3 ML VIAL (PYX) IV ONE (18:10)
[2018-10-07] MEDS ORDERED: OXYCODONE-ACETAMINOPHEN 5-325 MG TABLET PO PRN (19:59)
[2018-10-07] MEDS ORDERED: ACETAMINOPHEN 325 MG TABLET PO PRN (19:59)
[2018-10-07] MEDS ORDERED: PROMETHAZINE HCL 25 MG TABLET PO PRN (19:59)
[2018-10-07] MEDS ORDERED: MAG HYDROX/AL HYDROX/SIMETH SUSP 30 ML UDCUP PO PRN (19:59)
[2018-10-07] MEDS ORDERED: NORMAL SALINE 1000 ML 1,000 ML IV PRN ×2 (19:59→20:51)
[2018-10-07] MEDS ORDERED: DEXTROSE 40% GEL 15 GM TUBE PO PRN ×2 (20:08)
[2018-10-07] MEDS ORDERED: DEXTROSE 50%-WATER 25 GM/50 ML DISP.SYRIN IV PRN ×2 (20:08)
[2018-10-07] MEDS ORDERED: GLUCAGON,HUMAN RECOMB 1 MG INJ IM PRN (20:08)
[2018-10-07] MEDS ORDERED: VANCOMYCIN HCL 0 MG in DEXTROSE 5%-WATER 250 ML IV NR (20:15)
[2018-10-07] MEDS ORDERED: TRAZODONE HCL 50 MG TABLET PO PRN (20:27)
--- NOTE | 2018-10-07 21:18 | PDOC H&P ---
History of Present Illness Admission Date/PCP: 10/07/18 17:29 Patient complains of: Left ankle and lower leg pain History of Present Illness: JEVON MEDEROS is a 63 year old male currently being treated for right lung cancer. He was at his oncologist office and was directed to report to the emergency department. The patient states that over the last 2 to 3 days he noticed increasing redness and discomfort on the left medial malleolus area. 3 to 4 years ago he sprained his left ankle. Despite attempts at fusion the ankle is never been the same. This redness is new however. The patient reports Rigor's, chills and fever over the last several days. He is experienced nausea without vomiting. He did have an episode of diarrhea earlier today. Because of his malignancy and subsequent treatment he has noticed decreased appetite over several weeks. Has reported weight loss. He does try to drink an adequate amount of fluids daily. Unfortunately, the patient exhibits increased total bilirubin, increased lactic acid, mean arterial pressure less than 70 and thrombocytopenia with platelet count of 95. This meets the criteria for sepsis. He was given IV fluids and antibiotics in the emergency department and referred to the hospitalist service for admission. Past Medical History Cardiac Medical History: Reports: Congestive Heart Failure - Ejection fraction 25%, Myocardial Infarction Pulmonary Medical History: Denies: Asthma, Chronic Obstructive Pulmonary Disease (COPD), Pneumonia EENT Medical History: Denies: Cataracts, Ears, Nose Neurological Medical History: Denies: Hemorrhagic CVA, Ischemic CVA, Migraine Endocrine Medical History: Reports: Diabetes Mellitus Type 2 Denies: Hypothyroidism, Obesity Renal/ Medical History: Denies: Chronic Kidney Disease, Nephrolithiasis Malignancy Medical History: Reports: Lung Cancer GI Medical History: Denies: Cirrhosis, Gastroesophageal Reflux Disease, Hepatitis, Hiatal Hernia, Peptic Ulcer Disease Musculoskeltal Medical History: Reports: Arthritis Denies: Fibromyalgia, Gout Skin Medical History: Denies: Eczema, Psoriasis Psychiatric Medical History: Reports: Tobacco Dependency Denies: Alcohol Dependency, Bipolar Disorder, Dementia, General Anxiety Disorder, Post Traumatic Stress Disorder, Substance Abuse Traumatic Medical History: Reports: None Hematology: Reports: None Infectious Medical History: Reports: None Past Surgical History Past Surgical History: Reports: Orthopedic Surgery - Effusion left ankle, Other - Implantable defibrillator Social History Information Source: Patient Lives with: Spouse/Significant other Smoking Status: Current Every Day Smoker - Smokes 4 cigarettes/day. Has been trying to quit. Frequency of Alcohol Use: None Hx Recreational Drug Use: No Drugs: None Hx Prescription Drug Abuse: No - Advance Directive Resuscitation Status: Full Code Surrogate healthcare decision maker:: The patient's significant other, Sarahy Rodriguez, is the decision maker. The patient does not have formal documentation and I encouraged completion of a healthcare proxy form during this admission. Family History Family History: CAD, Malignancy - Many family members with malignancy, Other - Hydrocephalus Parental Family History Reviewed: Yes Children Family History Reviewed: Yes Sibling(s) Family History Reviewed.: Yes Medication/Allergy Home Medications: Multivitamin [One-A-Day Essential] 1 each PO DAILY 02/04/18 [place]-3 Fatty Acids/Fish Oil [Fish Oil 1,000 Mg Capsule] 1 each PO DAILY 02/04/18 Aspirin [Ecotrin 81 mg EC Tablet] 81 mg PO DAILY 10/07/18 Atorvastatin Calcium [Lipitor 80 mg Tablet] 80 mg PO QHS 10/07/18 Clopidogrel Bisulfate [Plavix 75 mg Tablet] 75 mg PO DAILY 10/07/18 Isosorbide Mononitrate [Ismo 20 Mg Tablet] 20 mg PO BID 10/07/18 Lisinopril [Prinivil 5 mg Tablet] 2.5 mg PO DAILY 10/07/18 Metformin HCl [Metformin HCl ER] 1,000 mg PO DAILY 10/07/18 Metoprolol Tartrate [Lopressor 25 mg Tablet] 12.5 mg PO Q12 10/07/18 Mycophenolate Mofetil [Cellcept] 500 mg PO Q12 10/07/18 Prednisone 20 mg PO Q8 10/07/18 Allergies/Adverse Reactions: No Known Allergies Allergy (Verified 02/04/18 19:47) Review of Systems Constitutional: PRESENT: anorexia, chills, fever(s), weight loss. ABSENT: headache(s), night sweats Eyes: ABSENT: visual disturbances Ears: ABSENT: hearing changes Nose, Mouth, and Throat: ABSENT: headache(s), mouth pain, sore throat Cardiovascular: ABSENT: chest pain, edema, orthropnea, palpitations Respiratory: ABSENT: cough, dyspnea, hemoptysis, sputum Gastrointestinal: PRESENT: diarrhea, nausea. ABSENT: abdominal pain, coffee ground emesis, constipation, heartburn, hematemesis, hematochezia, vomiting Genitourinary: ABSENT: difficulty urinating, dysuria, hematuria, nocturia Musculoskeletal: PRESENT: joint swelling - Left ankle. ABSENT: back pain, muscle weakness Integumentary: PRESENT: erythema - Left ankle. ABSENT: diaphoresis, pruritus, rash, wounds Neurological: ABSENT: abnormal speech, confusion, memory loss, numbness, paresthesias, syncope, tremor(s) Psychiatric: ABSENT: anxiety, depression, hallucinations Endocrine: ABSENT: cold intolerance, flushing, heat intolerance, polydipsia, polyphagia, polyuria Hematologic/Lymphatic: ABSENT: easy bleeding, easy bruising Allergic/Immunologic: ABSENT: seasonal rhinorrhea Physical Exam Vital Signs: Temp Pulse Resp BP Pulse Ox 98.2 F 138 H 22 H 88/51 L 95 10/07/18 19:30 10/07/18 15:33 10/07/18 19:30 10/07/18 19:30 10/07/18 19:30 Intake & Output 10/06/18 10/07/18 10/08/18 06:59 06:59 06:59 Intake Total 2049 Balance 2049 Weight 54.885 kg General appearance: PRESENT: cooperative, mild distress, thin, well-developed Head exam: PRESENT: atraumatic, normocephalic Eye exam: PRESENT: conjunctiva pink, EOMI, PERRLA. ABSENT: nystagmus, scleral icterus Ear exam: PRESENT: normal external ear exam. ABSENT: bleeding, drainage Mouth exam: PRESENT: dry mucosa, neck supple, tongue midline, other - Coated tongue Teeth exam: ABSENT: dental tenderness, poor dentation Neck exam: PRESENT: full ROM. ABSENT: carotid bruit, JVD, lymphadenopathy, tracheostomy Respiratory exam: PRESENT: clear to auscultation corey, symmetrical, unlabored, other - Implantable defibrillator left upper chest. ABSENT: accessory muscle use, chest wall tenderness, rales, rhonchi, tachypnea, wheezes Cardiovascular exam: PRESENT: RRR, +S1, +S2 Pulses: PRESENT: normal radial pulses, normal dorsalis pedis pul Vascular exam: PRESENT: normal capillary refill. ABSENT: pallor GI/Abdominal exam: PRESENT: normal bowel sounds, soft. ABSENT: distended, guarding, tenderness Rectal exam: PRESENT: deferred Gentrourinary exam: ABSENT: indwelling catheter Extremities exam: PRESENT: joint swelling - Left ankle. ABSENT: calf tenderness, pedal edema Musculoskeletal exam: PRESENT: ambulatory, normal inspection Neurological exam: PRESENT: alert, awake, oriented to person, oriented to place, oriented to time, oriented to situation, CN II-XII grossly intact Psychiatric exam: PRESENT: appropriate affect. ABSENT: agitated, anxious Focused psych exam: ABSENT: delusional, restlessness Skin exam: PRESENT: dry, erythema - Left medial malleolus, normal color, warm. ABSENT: rash, vesicles Results Laboratory Results: 10/07/18 15:55 10/07/18 15:55 10/07/18 10/07/18 10/07/18 15:55 15:55 15:55 WBC 13.5 H RBC 4.08 L Hgb 12.9 L Hct 38.8 MCV 95 MCH 31.6 MCHC 33.2 RDW 15.6 H Plt Count 95 L Seg Neutrophils % Not Reportable Sodium 129.3 L Potassium 3.7 Chloride 92 L Carbon Dioxide 22 Anion Gap 15 BUN 33 H Creatinine 1.09 Est GFR ( Amer) > 60 Glucose 498 H* Lactic Acid 5.9 H Calcium 9.7 Total Bilirubin 3.1 H AST 43 Alkaline Phosphatase 228 H Total Protein 5.3 L Albumin 3.0 L Impressions: Ankle X-Ray 10/07/18 15:42 IMPRESSION: 1. Moderate to moderate severe arthritic changes at the left ankle maybe on the basis of inflammatory arthrititides. Soft tissue swelling. Correlation suggested. 2. No acute fracture. Chest X-Ray 10/07/18 15:42 IMPRESSION: 1. Significant interval increase in size of the right suprahilar--right upper lobe mass since the prior study dated 02/04/2018. Further evaluation with CT chest with IV contrast suggested. 2. Left-sided cardiac pacemaker, new finding since the prior examination. Assessment and Plan - Diagnosis (1) Severe sepsis Is this a current diagnosis for this admission?: Yes Plan: 10/07/2018-patient meets criteria. Sepsis was present on admission. Sepsis is secondary to cellulitis. Sepsis criteria hypotension with mean arterial pressure less than 70, acute thrombocytopenia with platelets less than 100,000, acute liver dysfunction with total bilirubin greater than 1.9. The patient has elevated lactic acid as well. Repeat lactic acid levels have been ordered. He is receiving IV fluids. We need to be judicious with his IV fluids as his ejection fraction is only 25% and he is susceptible to congestive heart failure. We will monitor his liver function and platelet count. If his blood pressure does not improve with fluids, antibiotics and supportive care he may need vasopressors. (2) Cellulitis Qualifiers: Site of cellulitis: extremity Site of cellulitis of extremity: lower extremity Laterality: left Qualified Code(s): L03.116 - Cellulitis of left lower limb Is this a current diagnosis for this admission?: Yes Plan: 10/07/2018-the patient has cellulitis of the left medial malleolus. He has associated lymphangitis with red streaking into the lower leg. He is immunosuppressed with prednisone but does not exhibit neutropenia. He will be placed on vancomycin and cefepime. Blood cultures are pending. (3) Diabetes mellitus type 2 in nonobese Is this a current diagnosis for this admission?: Yes Plan: 10/07/2018-the combination of prednisone and acute infection have led to marked hyperglycemia. We will continue his metformin. He will be placed on a sliding scale with Accu-Cheks before meals and at bedtime. Based on his sliding scale needs consider long-acting insulin. (4) Thrombocytopenia Is this a current diagnosis for this admission?: Yes Plan: 10/07/2018-the patient's platelet count was less than 100,000. He has no active bleeding. With his malignancy he is at risk for hypercoagulability. I am going to start him on subcutaneous heparin. His platelet count needs to be monitored closely and if there is any sign of worsening thrombocytopenia I would suggest discontinuing his heparin. (5) Acute hepatic failure Qualifiers: Hepatic coma status: without hepatic coma Qualified Code(s): K72.00 - Acute and subacute hepatic failure without coma Is this a current diagnosis for this admission?: Yes Plan: 10/07/2018-the patient's bilirubin is greater than 3. Alkaline phosphatase is elevated as well. AST and ALT are normal. Acute hepatic injury secondary to sepsis. Will need to monitor liver function. (6) Hyponatremia Is this a current diagnosis for this admission?: Yes Plan: 10/07/2018-the patient's serum sodium is low. He is not on diuretic therapy. This certainly could be related to his lung mass. He has received lactated Ringer's and normal saline and will continue on normal saline. We will continue to monitor his serum sodium levels. (7) Coronary artery disease Qualifiers: Coronary Disease-Associated Artery/Lesion type: [place] artery [place] vs. transplanted heart: [place] heart Associated angina: without angina Qualified Code(s): I25.10 - Atherosclerotic heart disease of [place] coronary artery with out angina pectoris Is this a current diagnosis for this admission?: Yes Plan: 10/07/2018-the patient has a history of coronary disease. He has a history of myocardial infarction. He has depressed ejection fraction of 25% possibly due to ischemic cardiomyopathy. We will continue his Plavix and aspirin. He is also on lisinopril, isosorbide, metoprolol and atorvastatin. Continue to monitor for any signs of acute coronary syndrome. (8) Lung cancer Qualifiers: Laterality: right Lung location: upper lobe of lung Qualified Code(s): C34.11 - Malignant neoplasm of upper lobe, right bronchus or lung Is this a current diagnosis for this admission?: Yes Plan: 10/07/2018-the patient was in fact that his oncology office when he was directed to the emergency department. I have asked oncology to see the patient during this admission. I would like them to monitor any chemotherapeutic agents making appropriate adjustments if required. (9) Current smoker Is this a current diagnosis for this admission?: Yes Plan: 10/07/2018-despite his lung cancer and coronary disease, the patient still smokes 4 cigarettes a day. He declined a nicotine patch. He states he is in fact trying to quit. Supplemental oxygen will be available if needed. He reports no history of chronic obstructive pulmonary disease. - Time Time Spent with patient: 35 or more minutes Smoking Cessation Education: 3 to 10 minutes Medications reviewed and adjusted accordingly: Yes Anticipated discharge: Home - Inpatient Certification Based on my medical assessment, after consideration of the patient's mathew rbidities, presenting symptoms, or acuity I expect that the services needed warrant INPATIENT care.: Yes I certify that my determination is in accordance with my understanding of Medicare's requirements for reasonable and necessary INPATIENT services [42 CFR 412.3e].: Yes Medical Necessity: Significant Comorbidiites Make Outpatient Treatment Too Risky, Need For IV Fluids, Need For Continuous Telemetry Monitoring, Need for IV Antibiotics Post Hospital Care: D/C Supervisor [place] Documentation
--- NOTE | 2018-10-07 21:22 | ADVANCED CARE ---
- Diagnosis (1) Severe sepsis Diagnosis Current: Yes (2) Cellulitis Diagnosis Current: Yes (3) Diabetes mellitus type 2 in nonobese Diagnosis Current: Yes (4) Thrombocytopenia Diagnosis Current: Yes (5) Acute hepatic failure Diagnosis Current: Yes (6) Hyponatremia Diagnosis Current: Yes (7) Coronary artery disease Diagnosis Current: Yes (8) Lung cancer Diagnosis Current: Yes (9) Current smoker Diagnosis Current: Yes Attendance: Discussion was held at the bedside with the patient and myself Resuscitation Status: Full Code Discussion: The discussion focused on his current comorbidities including lung cancer coronary disease and depressed ejection fraction. Explained to the patient that with his underlying heart condition it would be very unlikely that he would survive cardiac resuscitation. He also has a primary lung mass. Despite our discussion the patient did request full resuscitation efforts. I then discussed the existence of any living Riggs. He does not have such document or healthcare proxy. I explained my healthcare proxy is important. His current significant other has no legal rights to make decisions. His children would be the next legal responsible constitution party. He does have several ex-wives as well. I also explained to him that he can put constraints on treatment plans initiated when gravely ill. I explained that there is a blank healthcare proxy document in the admissions packet and that he should read it during his hospitalization. Care Planning Goals: To complete a healthcare proxy. Also consider the reality of his illness and survivability of a catastrophic event. Document(s) Completed: None Time Spent: 20 minutes
[2018-10-07 21:48] LABS: ANION GAP 10 (5-19); BLOOD UREA NITROGEN 34 mg/dL (7-20); CALCIUM 9.2 mg/dL (8.4-10.2); CARBON DIOXIDE 22 mmol/L (22-30); CHLORIDE 98 mmol/L (98-107); GLUCOSE 331 mg/dL (75-110)
[2018-10-07 21:49] LABS: ALBUMIN 2.3 g/dL (3.5-5.0); ALKALINE PHOSPHATASE 155 U/L (38-126); ASPARTATE AMINO TRANSFERASE 30 U/L (17-59); BILIRUBIN,DIRECT 2.4 mg/dL (0.0-0.4); BILIRUBIN,TOTAL 3.5 mg/dL (0.2-1.3); TOTAL PROTEIN 4.1 g/dL (6.3-8.2)
[2018-10-07] MEDS ORDERED: MYCOPHENOLATE MOFETIL 500 MG PO SCH (22:00)
[2018-10-07] MEDS ORDERED: POTASSIUM CHLORIDE 10 MEQ CAPSULE.ER PO ONE (23:00)
[2018-10-07] MEDS: CEFEPIME 1 GM/D5W RTU 1 GM/50 ML RTUPB IV SCH (23:26)
[2018-10-07] MEDS: INSULIN LISPRO 100 UNIT/ML 3 ML VIAL SUBCUT SCH (23:30)
[2018-10-07] MEDS: MYCOPHENOLATE MOFETIL 250 MG CAPSULE PO SCH (23:31)
[2018-10-07] MEDS: ISOSORBIDE MONONITRATE 20 MG TABLET PO SCH (23:31)
[2018-10-07] MEDS: FAMOTIDINE 20 MG TABLET PO SCH (23:31)
[2018-10-07] MEDS: ATORVASTATIN CALCIUM 80 MG TABLET PO SCH (23:31)
[2018-10-07] MEDS: PREDNISONE 10 MG TABLET PO SCH (23:32)
[2018-10-07] MEDS: HEPARIN SOD (PORCINE) 5,000 UNIT/ML 1 ML VIAL SUBCUT SCH (23:32)
[2018-10-07] MEDS: VANCOMYCIN HCL 1,000 MG in DEXTROSE 5%-WATER 250 ML IV SCH (23:36)
[2018-10-07] MEDS: METOPROLOL TARTRATE 25 MG TABLET PO SCH (23:44)
[2018-10-08] MEDS: HEPARIN SOD (PORCINE) 5,000 UNIT/ML 1 ML VIAL SUBCUT SCH (06:26)
[2018-10-08] MEDS: PREDNISONE 10 MG TABLET PO SCH ×3 (06:30→22:24)
[2018-10-08 06:51] LABS: APPEARANCE,URINE SLIGHTLY-CLOUDY; BILIRUBIN,URINE SMALL (NEGATIVE); COLOR,URINE AMBER; GLUCOSE, URINE >=500 mg/dL (NEGATIVE); KETONES,URINE TRACE mg/dL (NEGATIVE); LEUKOCYTE ESTERASE,URINE NEGATIVE (NEGATIVE); NITRITE,URINE NEGATIVE (NEGATIVE); PROTEIN,URINE 30 mg/dL (NEGATIVE); URINE SPECIFIC GRAVITY 1.027
[2018-10-08 07:14] LABS: HEMATOCRIT 32.4 % (37.9-51.0); HEMOGLOBIN 11.1 g/dL (13.5-17.0); MEAN CORPUSCULAR HEMOGLOBIN 31.4 pg (27.0-33.4); MEAN CORPUSCULAR HGB CONC 34.3 g/dL (32.0-36.0); RED BLOOD COUNT 3.55 10^6/uL (4.35-5.55); RED CELL DISTRIBUTION WIDTH 15.1 % (11.5-14.0); WHITE BLOOD COUNT 16.2 10^3/uL (4.0-10.5)
[2018-10-08 07:35] LABS: ANION GAP 6 (5-19); BLOOD UREA NITROGEN 29 mg/dL (7-20); CALCIUM 9.4 mg/dL (8.4-10.2); CARBON DIOXIDE 24 mmol/L (22-30); CHLORIDE 103 mmol/L (98-107); GLUCOSE 172 mg/dL (75-110); POTASSIUM 3.1 mmol/L (3.6-5.0)
[2018-10-08] MEDS: METFORMIN HCL 500 MG TABLET PO SCH ×2 (08:01→17:41)
[2018-10-08] MEDS: POTASSIUM CHLORIDE 10 MEQ CAPSULE.ER PO SCH ×3 (08:01→17:41)
[2018-10-08] MEDS: INSULIN LISPRO 100 UNIT/ML 3 ML VIAL SUBCUT SCH ×4 (08:01→22:25)
[2018-10-08 08:28] LABS: MEAN CORPUSCULAR VOLUME 91 fl (80-97)
[2018-10-08 08:30] LABS: ABSOLUTE MONOCYTES # (MANUAL) 0.5 10^3/uL (0.1-1.4); BAND NEUTROPHILS % (MANUAL) 1 % (3-5); BASOPHILS % (MANUAL) 0 % (0-2); EOSINOPHILS % (MANUAL) 0 % (0-6); LYMPHOCYTES % (MANUAL) 0 % (13-45); MONOCYTES % (MANUAL) 3 % (3-13); SEGMENTED NEUTROPHILS % (MAN) 96 % (42-78); TOTAL CELLS COUNTED 100
[2018-10-08 08:33] LABS: ANISOCYTOSIS SLIGHT; PLATELET COMMENT DECREASED; TOXIC GRANULATION 1+; TOXIC VACUOLATION PRESENT
[2018-10-08 08:37] LABS: PLATELET COUNT 39 10^3/uL (150-450)
--- NOTE | 2018-10-08 09:59 | Progress Note Acknowledgement ---
Progress Note Acknowledgement Progess Note Acknowledgement: I, the undersigned member of the medical staff with appropriate privileges and with supervisory authority over [ PAC ], a dependent practice allied health professional, acknowledge that I have reviewed the progress notes entered on this patient, and in my professional judgment believe that the assessment made and/or any care evidenced was appropriate
[2018-10-08] MEDS ORDERED: (PENDING PHARMACY ID) (Omega-3 Fatty Acids/Fish Oil [Fish Oil 1,000 Mg Capsule] 1 EACH) PO SCH (10:00)
[2018-10-08] MEDS ORDERED: (PENDING PHARMACY ID) (Metformin Hcl [Metformin Hcl Er] 1,000 MG) PO SCH (10:00)
[2018-10-08] MEDS: NORMAL SALINE 1000 ML 1,000 ML IV PRN ×3 (10:11→22:23)
[2018-10-08] MEDS: CEFEPIME 1 GM/D5W RTU 1 GM/50 ML RTUPB IV SCH ×2 (10:12→22:26)
[2018-10-08] MEDS: INSULIN GLARGINE,HUM.REC.ANLOG 1,000 UNIT/10 ML VIAL SUBCUT SCH (10:14)
[2018-10-08] MEDS: MULTIVITAMIN TABLET PO SCH (10:14)
[2018-10-08] MEDS: METOPROLOL TARTRATE 25 MG TABLET PO SCH ×2 (10:15→22:24)
[2018-10-08] MEDS: ISOSORBIDE MONONITRATE 20 MG TABLET PO SCH ×2 (10:15→22:25)
[2018-10-08] MEDS: CLOPIDOGREL BISULFATE 75 MG TABLET PO SCH (10:15)
[2018-10-08] MEDS: FAMOTIDINE 20 MG TABLET PO SCH ×2 (10:15→22:25)
[2018-10-08] MEDS: LISINOPRIL 5 MG TABLET PO SCH (10:15)
[2018-10-08] MEDS: MYCOPHENOLATE MOFETIL 250 MG CAPSULE PO SCH ×2 (10:15→22:26)
[2018-10-08] MEDS: ASPIRIN 81 MG TABLET, ENT COATED PO SCH (10:15)
[2018-10-08] MEDS: DOCUSATE SODIUM 100 MG CAPSULE PO SCH ×2 (10:16→17:38)
[2018-10-08] MEDS: OMEGA-3 ACID ETHYL ESTERS 1 GM CAPSULE PO SCH (10:16)
--- NOTE | 2018-10-08 10:16 | PDOC PROGRESS REPORT ---
Subjective Progress Note for:: 10/08/18 Subjective:: 10/08/2018 she was admitted through the emergency room with cellulitis of the left lower leg progressed over the last 2 to 3 days. This is around the ankle. 3 to 4 years ago patient had trauma to the left ankle and by history it sounds as though it never healed. The redness however is new over the last 2 to 3 days patient is also had fever and chills patient is being admitted to the hospital for sepsis. Other comorbidities include congestive heart failure ejection fracture 25% and CA, also diabetes, thrombocytopenia hyponatremia acute hepatic failure coronary artery disease and lung cancer Patient is admitted on 10/07/2018 for sepsis of the left ankle Reason For Visit: CELLULITIS LEFT LEG, HYPOTENSION, PRIMARY LUNG Physical Exam Vital Signs: Temp Pulse Resp BP Pulse Ox 98.6 F 97 20 93/53 L 96 10/08/18 03:27 10/08/18 07:00 10/08/18 03:27 10/08/18 03:27 10/08/18 03:27 Intake & Output 10/07/18 10/08/18 10/09/18 06:59 06:59 06:59 Intake Total 3650 Output Total 0 Balance 3650 Weight 55.4 kg General appearance: PRESENT: no acute distress, well-developed, well-nourished, other - Patient was asleep snoring in the room when I walked in Respiratory exam: PRESENT: clear to auscultation corey. ABSENT: rales, rhonchi, wheezes Cardiovascular exam: PRESENT: RRR. ABSENT: diastolic murmur, rubs, systolic murmur Neurological exam: PRESENT: alert, awake, oriented to person, oriented to place, oriented to time, oriented to situation, CN II-XII grossly intact. ABSENT: motor sensory deficit Psychiatric exam: PRESENT: appropriate affect, normal mood. ABSENT: homicidal ideation, suicidal ideation Skin exam: PRESENT: erythema, warm - Patient has redness and warmth to the both the medial and lateral malleolus. Patient also has an area of eschar medial aspect, however no drainage. There is will be marked with a marker today and there is also minimal soft tissue swelling. Both areas are tender to palpate Results Laboratory Results: 10/08/18 07:00 10/08/18 07:00 10/07/18 10/07/18 10/07/18 15:55 15:55 15:55 WBC 13.5 H RBC 4.08 L Hgb 12.9 L Hct 38.8 MCV 95 MCH 31.6 MCHC 33.2 RDW 15.6 H Plt Count 95 L Seg Neutrophils % Not Reportable Sodium 129.3 L Potassium 3.7 Chloride 92 L Carbon Dioxide 22 Anion Gap 15 BUN 33 H Creatinine 1.09 Est GFR ( Amer) > 60 Glucose 498 H* Lactic Acid 5.9 H Calcium 9.7 Magnesium Total Bilirubin 3.1 H AST 43 Alkaline Phosphatase 228 H Total Protein 5.3 L Albumin 3.0 L Urine Color Urine Appearance Urine pH Ur Specific [place] Urine Protein Urine Glucose (UA) Urine Ketones Urine Blood Urine Nitrite Ur Leukocyte Esterase Urine WBC (Auto) Urine RBC (Auto) 10/07/18 10/07/18 10/07/18 19:55 21:13 21:13 WBC RBC Hgb Hct MCV MCH MCHC RDW Plt Count Seg Neutrophils % Sodium 129.7 L Potassium 3.0 L* Chloride 98 Carbon Dioxide 22 Anion Gap 10 BUN 34 H Creatinine 0.94 Est GFR ( Amer) > 60 Glucose 331 H Lactic Acid 4.2 H Calcium 9.2 Magnesium 1.8 Total Bilirubin 3.5 H AST 30 Alkaline Phosphatase 155 H Total Protein 4.1 L Albumin 2.3 L Urine Color Urine Appearance Urine pH Ur Specific [place] Urine Protein Urine Glucose (UA) Urine Ketones Urine Blood Urine Nitrite Ur Leukocyte Esterase Urine WBC (Auto) Urine RBC (Auto) 10/08/18 10/08/18 10/08/18 00:33 06:34 07:00 WBC 16.2 H RBC 3.55 L Hgb 11.1 L Hct 32.4 L MCV 91 D MCH 31.4 MCHC 34.3 RDW 15.1 H Plt Count 39 L Seg Neutrophils % Not Reportable Sodium Potassium Chloride Carbon Dioxide Anion Gap BUN Creatinine Est GFR ( Amer) Glucose Lactic Acid 6.1 H Calcium Magnesium Total Bilirubin AST Alkaline Phosphatase Total Protein Albumin Urine Color HETAL Urine Appearance SLIGHTLY-CLOUDY Urine pH 5.0 Ur Specific [place] 1.027 Urine Protein 30 H Urine Glucose (UA) >=500 H Urine Ketones TRACE H Urine Blood MODERATE H Urine Nitrite NEGATIVE Ur Leukocyte Esterase NEGATIVE Urine WBC (Auto) 4 Urine RBC (Auto) 1 10/08/18 10/08/18 07:00 07:00 WBC RBC Hgb Hct MCV MCH MCHC RDW Plt Count Seg Neutrophils % Sodium 132.6 L Potassium 3.1 L Chloride 103 Carbon Dioxide 24 Anion Gap 6 BUN 29 H Creatinine 0.68 Est GFR ( Amer) > 60 Glucose 172 H Lactic Acid 1.4 Calcium 9.4 Magnesium 1.8 Total Bilirubin AST Alkaline Phosphatase Total Protein Albumin Urine Color Urine Appearance Urine pH Ur Specific [place] Urine Protein Urine Glucose (UA) Urine Ketones Urine Blood Urine Nitrite Ur Leukocyte Esterase Urine WBC (Auto) Urine RBC (Auto) Impressions: Ankle X-Ray 10/07/18 15:42 IMPRESSION: 1. Moderate to moderate severe arthritic changes at the left ankle maybe on the basis of inflammatory arthrititides. Soft tissue swelling. Correlation suggested. 2. No acute fracture. Chest X-Ray 10/07/18 15:42 IMPRESSION: 1. Significant interval increase in size of the right suprahilar--right upper lobe mass since the prior study dated 02/04/2018. Further evaluation with CT chest with IV contrast suggested. 2. Left-sided cardiac pacemaker, new finding since the prior examination. Assessment and Plan - Diagnosis (1) Cellulitis Qualifiers: Site of cellulitis: extremity Site of cellulitis of extremity: lower extremity Laterality: left Qualified Code(s): L03.116 - Cellulitis of left lower limb Is this a current diagnosis for this admission?: Yes Plan: 10/07/2018-the patient has cellulitis of the left medial malleolus. He has associated lymphangitis with red streaking into the lower leg. He is immunosuppressed with prednisone but does not exhibit neutropenia. He will be placed on vancomycin and cefepime. Blood cultures are pending. 10/08/2018 cellulitis includes both the medial and lateral malleolus. Patient continues vancomycin and cefepime. Preliminary blood cultures are positive showing gram-positive cocci urine culture pending Blood pressure 93/53 temp 98.6 pulse 84 O2 sat on room air 96% (2) Diabetes mellitus type 2 in nonobese Is this a current diagnosis for this admission?: Yes Plan: 10/07/2018-the combination of prednisone and acute infection have led to marked hyperglycemia. We will continue his metformin. He will be placed on a sliding scale with Accu-Cheks before meals and at bedtime. Based on his sliding scale needs consider long-acting insulin. 10/08/2018 serum glucose 331 and 172. Fingerstick glucose yesterday 492 and today 188 patient is being covered with a sliding scale, and on his metformin. (3) Hyponatremia Is this a current diagnosis for this admission?: Yes Plan: 10/07/2018-the patient's serum sodium is low. He is not on diuretic therapy. This certainly could be related to his lung mass. He has received lactated Ringer's and normal saline and will continue on normal saline. We will continue to monitor his serum sodium levels. 10/08/2018 sodium yesterday was 129.7 today it is slightly at 132.6. BUN yesterday was 34 creatinine 0.94 today it is 29 and 0.68 (4) Leukocytosis Qualifiers: Leukocytosis type: bandemia Qualified Code(s): D72.825 - Bandemia Is this a current diagnosis for this admission?: Yes Plan: Patient's white count on admission was 13.5 today it is 16.2 patient is on antibiotics IV patient's vital signs appears (5) Lung cancer Qualifiers: Laterality: right Lung location: upper lobe of lung Qualified Code(s): C34.11 - Malignant neoplasm of upper lobe, right bronchus or lung Is this a current diagnosis for this admission?: Yes Plan: 10/07/2018-the patient was in fact that his oncology office when he was directed to the emergency department. I have asked oncology to see the patient during this admission. I would like them to monitor any chemotherapeutic agents making appropriate adjustments if required. 10/08/2018 oncology is pending. Defer to their judgment. Chest x-ray on admission showed significant interval increase in the size of the mass compared to prior study 02/04/2018. Suggest CT scan. Also pacemaker since last examination. CT scan has not been ordered we will defer to oncology (6) Severe sepsis Is this a current diagnosis for this admission?: Yes Plan: 10/07/2018-patient meets criteria. Sepsis was present on admission. Sepsis is secondary to cellulitis. Sepsis criteria hypotension with mean arterial pressure less than 70, acute t hrombocytopenia with platelets less than 100,000, acute liver dysfunction with total bilirubin greater than 1.9. The patient has elevated lactic acid as well. Repeat lactic acid levels have been ordered. He is receiving IV fluids. We need to be judicious with his IV fluids as his ejection fraction is only 25% and he is susceptible to congestive heart failure. We will monitor his liver function and platelet count. If his blood pressure does not improve with fluids, antibiotics and supportive care he may need vasopressors. 10/08/2018 pressure appears to have stabilized however platelets have gone down now to 39,000 from admission of 95,000 blood pressure is actually improved on admission it was 75/44 now his systolic is in the mid 90s to 100s diastolic is around 60. White count is basically stable slightly elevated Lactic acid on admission was 5.9 this went up slightly to 6.1 and now it is back down to 1.4. Clinically looking at the patient he does not appear to be septic (7) Thrombocytopenia Is this a current diagnosis for this admission?: Yes Plan: 10/07/2018-the patient's platelet count was less than 100,000. He has no active bleeding. With his malignancy he is at risk for hypercoagulability. I am going to start him on subcutaneous heparin. His platelet count needs to be monitored closely and if there is any sign of worsening thrombocytopenia I would suggest discontinuing his heparin. 10/08/2018 as above note mentions due to his decrease in thrombocytopenia with platelets now at 35,000 we will discontinue his heparin. - Time Time Spent with patient: 25-34 minutes
--- NOTE | 2018-10-08 13:55 | PDOC CONSULTATION ---
Consultation Consult Date: 10/08/18 Provider Consulted: DAX TAMAYO Consult reason:: Hematology/Oncology consultation was requested for patient on active treatment for cancer who was admitted for cellulitis. History of Present Illness Admission Date/PCP: 10/07/18 17:29 History of Present Illness: JEVON MEDEROS is a 63 year old male with a very complicated medical history. He was being treated for metastatic cancer with Keytruda. However, his LFTs increased and the treatments were placed on hold. He was started on steroids and Cellcept to decrease his immune response. Yesterday, he presented to the office with fatigue, weakness, and was found to have a cellulitis in his ankle. He was admitted and started on antibiotics. His blood sugars have also been markedly increased over the past few days. Today, he states that he is feeling much better. His blood sugars have greatly improved. He has little appetite. Past Medical History Cardiac Medical History: Reports: Congestive Heart Failure - Ejection fraction 25%, Myocardial Infarction Pulmonary Medical History: Denies: Asthma, Chronic Obstructive Pulmonary Disease (COPD), Pneumonia EENT Medical History: Denies: Cataracts, Ears, Nose Neurological Medical History: Denies: Hemorrhagic CVA, Ischemic CVA, Migraine Endocrine Medical History: Reports: Diabetes Mellitus Type 2 Denies: Hypothyroidism, Obesity Renal/ Medical History: Denies: Chronic Kidney Disease, Nephrolithiasis Malignancy Medical History: Reports: Lung Cancer GI Medical History: Denies: Cirrhosis, Gastroesophageal Reflux Disease, Hepatitis, Hiatal Hernia, Peptic Ulcer Disease Musculoskeltal Medical History: Reports: Arthritis Denies: Fibromyalgia, Gout Skin Medical History: Denies: Eczema, Psoriasis Psychiatric Medical History: Reports: Tobacco Dependency Denies: Alcohol Dependency, Bipolar Disorder, Dementia, Depression, General Anxiety Disorder, Post Traumatic Stress Disorder, Substance Abuse Traumatic Medical History: Reports: None Hematology: Reports: None Infectious Medical History: Reports: None Past Surgical History Past Surgical History: Reports: Orthopedic Surgery - Effusion left ankle, Other - Implantable defibrillator Social History Lives with: Spouse/Significant other Smoking Status: Current Every Day Smoker - Smokes 4 cigarettes/day. Has been trying to quit. Cigarettes Packs Per Day: 0.2 Number of Years Smokin Last Time Smoked: 10/07/18 Frequency of Alcohol Use: None Hx Recreational Drug Use: No Drugs: None Hx Prescription Drug Abuse: No - Advance Directive Resuscitation Status: Full Code Family History Family History: CAD, Malignancy - Many family members with malignancy, Other - Hydrocephalus Parental Family History Reviewed: Yes Children Family History Reviewed: Yes Sibling(s) Family History Reviewed.: Yes Medication/Allergy Home Medications: Multivitamin [One-A-Day Essential] 1 each PO DAILY 02/04/18 [place]-3 Fatty Acids/Fish Oil [Fish Oil 1,000 Mg Capsule] 1 each PO DAILY 02/04/18 Aspirin [Ecotrin 81 mg EC Tablet] 81 mg PO DAILY 10/07/18 Atorvastatin Calcium [Lipitor 80 mg Tablet] 80 mg PO QHS 10/07/18 Clopidogrel Bisulfate [Plavix 75 mg Tablet] 75 mg PO DAILY 10/07/18 Isosorbide Mononitrate [Ismo 20 Mg Tablet] 20 mg PO BID 10/07/18 Lisinopril [Prinivil 5 mg Tablet] 2.5 mg PO DAILY 10/07/18 Metformin HCl [Metformin HCl ER] 1,000 mg PO DAILY 10/07/18 Metoprolol Tartrate [Lopressor 25 mg Tablet] 12.5 mg PO Q12 10/07/18 Mycophenolate Mofetil [Cellcept] 500 mg PO Q12 10/07/18 Prednisone 20 mg PO Q8 10/07/18 Allergies/Adverse Reactions: No Known Allergies Allergy (Verified 02/04/18 19:47) Review of Systems Constitutional: PRESENT: fever(s). ABSENT: headache(s) Eyes: ABSENT: visual disturbances Ears: ABSENT: hearing changes Nose, Mouth, and Throat: ABSENT: sore throat Cardiovascular: ABSENT: chest pain Respiratory: ABSENT: dyspnea Gastrointestinal: PRESENT: abdominal pain Integumentary: PRESENT: rash Neurological: PRESENT: weakness Endocrine: PRESENT: other - weight loss Physical Exam Vital Signs: Temp Pulse Resp BP Pulse Ox 98.0 F 98 16 110/57 L 95 10/08/18 07:51 10/08/18 07:51 10/08/18 07:51 10/08/18 07:51 10/08/18 07:51 Intake & Output 10/07/18 10/08/18 10/09/18 06:59 06:59 06:59 Intake Total 3650 Output Total 0 Balance 3650 Weight 55.4 kg General appearance: PRESENT: no acute distress, well-developed, well-nourished Exam: 63 year old male. is at bedside. Head exam: PRESENT: normocephalic Eye exam: PRESENT: EOMI, PERRLA Mouth exam: PRESENT: tongue midline Neck exam: ABSENT: lymphadenopathy, tenderness Respiratory exam: PRESENT: clear to auscultation corey, unlabored Cardiovascular exam: PRESENT: RRR GI/Abdominal exam: PRESENT: soft. ABSENT: tenderness Extremities exam: ABSENT: pedal edema Neurological exam: PRESENT: alert, awake. ABSENT: normal gait Psychiatric exam: PRESENT: appropriate affect Skin exam: PRESENT: other - erythema over ankle is improved compared to yesterday. Results Laboratory Results: 10/08/18 07:00 10/08/18 07:00 10/07/18 10/07/18 10/07/18 15:55 15:55 15:55 WBC 13.5 H RBC 4.08 L Hgb 12.9 L Hct 38.8 MCV 95 MCH 31.6 MCHC 33.2 RDW 15.6 H Plt Count 95 L Seg Neutrophils % Not Reportable Sodium 129.3 L Potassium 3.7 Chloride 92 L Carbon Dioxide 22 Anion Gap 15 BUN 33 H Creatinine 1.09 Est GFR ( Amer) > 60 Glucose 498 H* Lactic Acid 5.9 H Calcium 9.7 Magnesium Total Bilirubin 3.1 H AST 43 Alkaline Phosphatase 228 H Total Protein 5.3 L Albumin 3.0 L Urine Color Urine Appearance Urine pH Ur Specific [place] Urine Protein Urine Glucose (UA) Urine Ketones Urine Blood Urine Nitrite Ur Leukocyte Esterase Urine WBC (Auto) Urine RBC (Auto) 10/07/18 10/07/18 10/07/18 19:55 21:13 21:13 WBC RBC Hgb Hct MCV MCH MCHC RDW Plt Count Seg Neutrophils % Sodium 129.7 L Potassium 3.0 L* Chloride 98 Carbon Dioxide 22 Anion Gap 10 BUN 34 H Creatinine 0.94 Est GFR ( Amer) > 60 Glucose 331 H Lactic Acid 4.2 H Calcium 9.2 Magnesium 1.8 Total Bilirubin 3.5 H AST 30 Alkaline Phosphatase 155 H Total Protein 4.1 L Albumin 2.3 L Urine Color Urine Appearance Urine pH Ur Specific [place] Urine Protein Urine Glucose (UA) Urine Ketones Urine Blood Urine Nitrite Ur Leukocyte Esterase Urine WBC (Auto) Urine RBC (Auto) 10/08/18 10/08/18 10/08/18 00:33 06:34 07:00 WBC 16.2 H RBC 3.55 L Hgb 11.1 L Hct 32.4 L MCV 91 D MCH 31.4 MCHC 34.3 RDW 15.1 H Plt Count 39 L Seg Neutrophils % Not Reportable Sodium Potassium Chloride Carbon Dioxide Anion Gap BUN Creatinine Est GFR ( Amer) Glucose Lactic Acid 6.1 H Calcium Magnesium Total Bilirubin AST Alkaline Phosphatase Total Protein Albumin Urine Color HETAL Urine Appearance SLIGHTLY-CLOUDY Urine pH 5.0 Ur Specific [place] 1.027 Urine Protein 30 H Urine Glucose (UA) >=500 H Urine Ketones TRACE H Urine Blood MODERATE H Urine Nitrite NEGATIVE Ur Leukocyte Esterase NEGATIVE Urine WBC (Auto) 4 Urine RBC (Auto) 1 10/08/18 10/08/18 07:00 07:00 WBC RBC Hgb Hct MCV MCH MCHC RDW Plt Count Seg Neutrophils % Sodium 132.6 L Potassium 3.1 L Chloride 103 Carbon Dioxide 24 Anion Gap 6 BUN 29 H Creatinine 0.68 Est GFR ( Amer) > 60 Glucose 172 H Lactic Acid 1.4 Calcium 9.4 Magnesium 1.8 Total Bilirubin AST Alkaline Phosphatase Total Protein Albumin Urine Color Urine Appearance Urine pH Ur Specific [place] Urine Protein Urine Glucose (UA) Urine Ketones Urine Blood Urine Nitrite Ur Leukocyte Esterase Urine WBC (Auto) Urine RBC (Auto) Impressions: Ankle X-Ray 10/07/18 15:42 IMPRESSION: 1. Moderate to moderate severe arthritic changes at the left ankle maybe on the basis of inflammatory arthrititides. Soft tissue swelling. Correlation suggested. 2. No acute fracture. Chest X-Ray 10/07/18 15:42 IMPRESSION: 1. Significant interval increase in size of the right s uprahilar--right upper lobe mass since the prior study dated 02/04/2018. Further evaluation with CT chest with IV contrast suggested. 2. Left-sided cardiac pacemaker, new finding since the prior examination. Status: Image reviewed by me Assessment & Plan - Diagnosis (1) Acute hepatic failure Qualifiers: Hepatic coma status: without hepatic coma Qualified Code(s): K72.00 - Acute and subacute hepatic failure without coma Is this a current diagnosis for this admission?: Yes Plan: LFTs had been increased. These are improving. His Cellcept is on hold. Continue steroids for the acute immune hepatitis. (2) Cellulitis Qualifiers: Site of cellulitis: extremity Site of cellulitis of extremity: lower extremity Laterality: left Qualified Code(s): L03.116 - Cellulitis of left lower limb Is this a current diagnosis for this admission?: Yes Plan: Improving. Continue current antibiotics. May gabriele antibiotics, based on cultures, when available. (3) Diabetes mellitus type 2 in nonobese Is this a current diagnosis for this admission?: Yes Plan: Much improved. Continue current treatment (4) Lung cancer Qualifiers: Laterality: right Lung location: upper lobe of lung Qualified Code(s): C34.11 - Malignant neoplasm of upper lobe, right bronchus or lung Is this a current diagnosis for this admission?: Yes Plan: Treatment currently on hold. Patient was discussed with the Emergency room physician yesterday. Please call with any other concerns.
--- NOTE | 2018-10-08 19:12 | EKG REPORT ---
SEVERITY:- ABNORMAL ECG - SINUS TACHYCARDIA VENTRICULAR PREMATURE COMPLEX NONSPECIFIC INTRAVENTRICULAR CONDUCTION DELAY ANTERIOR INFARCT,OLD : Confirmed by: Tatiana Nelson MD 08-Oct-2018 19:11:15
[2018-10-08] MEDS: ATORVASTATIN CALCIUM 80 MG TABLET PO SCH (22:24)
[2018-10-08] MEDS: VANCOMYCIN HCL 1,000 MG in DEXTROSE 5%-WATER 250 ML IV SCH (22:27)
[2018-10-09] MEDS: PREDNISONE 10 MG TABLET PO SCH ×3 (05:39→21:57)
[2018-10-09] MEDS: NORMAL SALINE 1000 ML 1,000 ML IV PRN ×3 (05:40→18:01)
[2018-10-09] MEDS: METFORMIN HCL 500 MG TABLET PO SCH ×2 (08:10→17:45)
[2018-10-09] MEDS: INSULIN LISPRO 100 UNIT/ML 3 ML VIAL SUBCUT SCH ×4 (08:10→22:00)
[2018-10-09] MEDS: POTASSIUM CHLORIDE 10 MEQ CAPSULE.ER PO SCH ×3 (08:10→17:45)
[2018-10-09] MEDS: MYCOPHENOLATE MOFETIL 250 MG CAPSULE PO SCH ×2 (09:57→21:57)
[2018-10-09] MEDS: ISOSORBIDE MONONITRATE 20 MG TABLET PO SCH ×2 (09:57→21:58)
[2018-10-09] MEDS: LISINOPRIL 5 MG TABLET PO SCH (09:58)
[2018-10-09] MEDS: ASPIRIN 81 MG TABLET, ENT COATED PO SCH (09:58)
[2018-10-09] MEDS: FAMOTIDINE 20 MG TABLET PO SCH ×2 (09:58→21:56)
[2018-10-09] MEDS: MULTIVITAMIN TABLET PO SCH (09:58)
[2018-10-09] MEDS: OMEGA-3 ACID ETHYL ESTERS 1 GM CAPSULE PO SCH (09:58)
[2018-10-09] MEDS: INSULIN GLARGINE,HUM.REC.ANLOG 1,000 UNIT/10 ML VIAL SUBCUT SCH ×2 (09:58→21:59)
[2018-10-09] MEDS: METOPROLOL TARTRATE 25 MG TABLET PO SCH ×2 (09:58→21:56)
[2018-10-09] MEDS: CEFEPIME 1 GM/D5W RTU 1 GM/50 ML RTUPB IV SCH ×2 (09:58→22:00)
[2018-10-09] MEDS: CLOPIDOGREL BISULFATE 75 MG TABLET PO SCH (09:58)
[2018-10-09] MEDS: DOCUSATE SODIUM 100 MG CAPSULE PO SCH ×2 (09:59→17:46)
--- NOTE | 2018-10-09 10:49 | PDOC PROGRESS REPORT ---
Subjective Progress Note for:: 10/09/18 Subjective:: 10/08/2018 He was admitted through the emergency room with cellulitis of the left lower leg progressed over the last 2 to 3 days. This is around the ankle. 3 to 4 years ago patient had trauma to the left ankle and by history it sounds as though it never healed. The redness however is new over the last 2 to 3 days patient is also had fever and chills patient is being admitted to the hospital for sepsis. Other comorbidities include congestive heart failure ejection fracture 25% and OH, also diabetes, thrombocytopenia hyponatremia acute hepatic failure coronary artery disease and lung cancer Patient is admitted on 10/07/2018 for sepsis of the left ankle 10/09/2018 his temperature today is 99, blood pressure is stable at 110/55, O2 sat 92%, he appears to run average around 95% on room air. White count 16.2 however patient is on steroids, platelets 39,000 though patient is undergoing chemo. Lecture lites showed a potassium slightly low at 3.1, serum glucose is running better at 172, however fingerstick blood sugars are up in the high 200s low 300s Blood cultures are growing out gram-positive cocci, no sensitivities yet. will increase patient's Lantus to every 12 hours. Tomorrow morning put in a consult for Dr. Graham to see the patient as the patient has an appointment on Wednesday as an outpatient. Will elevate left lower extremity. Will check ammonia level Reason For Visit: CELLULITIS LEFT LEG, HYPOTENSION, PRIMARY LUNG Physical Exam Vital Signs: Temp Pulse Resp BP Pulse Ox 98.8 F 99 18 110/55 L 92 10/09/18 03:35 10/09/18 07:00 10/09/18 03:35 10/09/18 03:35 10/09/18 03:35 Intake & Output 10/08/18 10/09/18 10/10/18 06:59 06:59 06:59 Intake Total 3650 2925 Output Total 0 300 Balance 3650 2625 Weight 55.4 kg 54.3 kg General appearance: PRESENT: no acute distress Respiratory exam: PRESENT: clear to auscultation corey. ABSENT: rales, rhonchi, wheezes Cardiovascular exam: PRESENT: RRR. ABSENT: diastolic murmur, rubs, systolic murmur Extremities exam: PRESENT: joint swelling, tenderness, +1 edema, other - Less area of redness today but more soft tissue swelling. Results Laboratory Results: 10/08/18 07:00 10/08/18 07:00 Impressions: Ankle X-Ray 10/07/18 15:42 IMPRESSION: 1. Moderate to moderate severe arthritic changes at the left ankle maybe on the basis of inflammatory arthrititides. Soft tissue swelling. Correlation suggested. 2. No acute fracture. Chest X-Ray 10/07/18 15:42 IMPRESSION: 1. Significant interval increase in size of the right suprahilar--right upper lobe mass since the prior study dated 02/04/2018. Further evaluation with CT chest with IV contrast suggested. 2. Left-sided cardiac pacemaker, new finding since the prior examination. Assessment and Plan - Diagnosis (1) Cellulitis Qualifiers: Site of cellulitis: extremity Site of cellulitis of extremity: lower extremity Laterality: left Qualified Code(s): L03.116 - Cellulitis of left lower limb Is this a current diagnosis for this admission?: Yes Plan: 10/07/2018-the patient has cellulitis of the left medial malleolus. He has associated lymphangitis with red streaking into the lower leg. He is immunosuppressed with prednisone but does not exhibit neutropenia. He will be placed on vancomycin and cefepime. Blood cultures are pending. 10/08/2018 cellulitis includes both the medial and lateral malleolus. Patient continues vancomycin and cefepime. Preliminary blood cultures are positive showing gram-positive cocci urine culture pending Blood pressure 93/53 temp 98.6 pulse 84 O2 sat on room air 96% 10/09/2018 clinically patient appears to be improving, less redness. we will continue vancomycin and cefepime until sensitivities are back (2) Diabetes mellitus type 2 in nonobese Is this a current diagnosis for this admission?: Yes Plan: 10/07/2018-the combination of prednisone and acute infection have led to marked hyperglycemia. We will continue his metformin. He will be placed on a sliding scale with Accu-Cheks before meals and at bedtime. Based on his sliding scale needs consider long-acting insulin. 10/08/2018 serum glucose 331 and 172. Fingerstick glucose yesterday 492 and today 188 patient is being covered with a sliding scale, and on his metformin. 10/09/2018 change his Lantus to a twice daily dosing instead of a daily dosing. Patient is on steroids. Check an A1c (3) Hyponatremia Is this a current diagnosis for this admission?: Yes Plan: 10/07/2018-the patient's serum sodium is low. He is not on diuretic therapy. This certainly could be related to his lung mass. He has received lactated Ringer's and normal saline and will continue on normal saline. We will continue to monitor his serum sodium levels. 10/08/2018 sodium yesterday was 129.7 today it is slightly at 132.6. BUN yesterday was 34 creatinine 0.94 today it is 29 and 0.68 10/09/2018 we will recheck labs today (4) Leukocytosis Qualifiers: Leukocytosis type: bandemia Qualified Code(s): D72.825 - Bandemia Is this a current diagnosis for this admission?: Yes Plan: Patient's white count on admission was 13.5 today it is 16.2 patient is on antibiotics IV patient's vital signs appears 10/09/2018 patient currently on cefepime and vancomycin started 10/07/2018. Recheck WBCs today (5) Lung cancer Qualifiers: Laterality: right Lung location: upper lobe of lung Qualified Code(s): C34.11 - Malignant neoplasm of upper lobe, right bronchus or lung Is this a current diagnosis for this admission?: Yes Plan: 10/07/2018-the patient was in fact that his oncology office when he was directed to the emergency department. I have asked oncology to see the patient during this admission. I would like them to monitor any chemotherapeutic agents making appropriate adjustments if required. 10/08/2018 oncology is pending. Defer to their judgment. Chest x-ray on admissi on showed significant interval increase in the size of the mass compared to prior study 02/04/2018. Suggest CT scan. Also pacemaker since last examination. CT scan has not been ordered we will defer to oncology. 10/09/2018 appreciate oncology consult, agree with her recommendations. We will follow together (6) Severe sepsis Is this a current diagnosis for this admission?: Yes Plan: 10/07/2018-patient meets criteria. Sepsis was present on admission. Sepsis is secondary to cellulitis. Sepsis criteria hypotension with mean arterial pressure less than 70, acute thrombocytopenia with platelets less than 100,000, acute liver dysfunction with total bilirubin greater than 1.9. The patient has elevated lactic acid as well. Repeat lactic acid levels have been ordered. He is receiving IV fluids. We need to be judicious with his IV fluids as his ejection fraction is only 25% and he is susceptible to congestive heart failure. We will monitor his liver function and platelet count. If his blood pressure does not improve with fluids, antibiotics and supportive care he may need vasopressors. 10/08/2018 pressure appears to have stabilized however platelets have gone down now to 39,000 from admission of 95,000,blood pressure is actually improved on admission it was 75/44 now his systolic is in the mid 90s to 100s diastolic is around 60. White count is basically stable slightly elevated Lactic acid on admission was 5.9 this went up slightly to 6.1 and now it is back down to 1.4. Clinically looking at the patient he does not appear to be septic. 10/09/2018 patient's vital signs are stable, he is afebrile. No clinical indications of shock time. Certainly patient appears to be immunocompromised, and other comorbidities make this patient very acceptable to rapid drastic changes. Continue antibiotics until sensitivities have returned. Monitor lab work. Ask orthopedics to come by and see the patient while he is in the hospital. (7) Thrombocytopenia Is this a current diagnosis for this admission?: Yes Plan: 10/07/2018-the patient's platelet count was less than 100,000. He has no active bleeding. With his malignancy he is at risk for hypercoagulability. I am going to start him on subcutaneous heparin. His platelet count needs to be monitored closely and if there is any sign of worsening thrombocytopenia I would suggest discontinuing his heparin. 10/08/2018 as above note mentions due to his decrease in thrombocytopenia with platelets now at 35,000 we will discontinue his heparin. 10/09/2018 defer thrombocytopenia to oncology - Time Time Spent with patient: 25-34 minutes
[2018-10-09 12:00] LABS: HEMOGLOBIN 9.9 g/dL (13.5-17.0); MEAN CORPUSCULAR HEMOGLOBIN 31.5 pg (27.0-33.4); MEAN CORPUSCULAR HGB CONC 34.1 g/dL (32.0-36.0); MEAN CORPUSCULAR VOLUME 92 fl (80-97); RED BLOOD COUNT 3.15 10^6/uL (4.35-5.55); RED CELL DISTRIBUTION WIDTH 15.6 % (11.5-14.0); WHITE BLOOD COUNT 17.3 10^3/uL (4.0-10.5)
[2018-10-09 12:10] LABS: ALBUMIN 1.8 g/dL (3.5-5.0); ALKALINE PHOSPHATASE 151 U/L (38-126); ANION GAP 5 (5-19); ASPARTATE AMINO TRANSFERASE 47 U/L (17-59); BILIRUBIN,DIRECT 1.7 mg/dL (0.0-0.4); BILIRUBIN,TOTAL 2.4 mg/dL (0.2-1.3); BLOOD UREA NITROGEN 28 mg/dL (7-20); CALCIUM 9.5 mg/dL (8.4-10.2); CARBON DIOXIDE 21 mmol/L (22-30); CHLORIDE 109 mmol/L (98-107); GLUCOSE 201 mg/dL (75-110); POTASSIUM 3.7 mmol/L (3.6-5.0); TOTAL PROTEIN 3.7 g/dL (6.3-8.2)
[2018-10-09 12:36] LABS: PLATELET COUNT 8 10^3/uL (150-450)
[2018-10-09 12:38] LABS: ABSOLUTE MONOCYTES # (MANUAL) 0.2 10^3/uL (0.1-1.4); BAND NEUTROPHILS % (MANUAL) 3 % (3-5); BASOPHILS % (MANUAL) 0 % (0-2); EOSINOPHILS % (MANUAL) 0 % (0-6); LYMPHOCYTES % (MANUAL) 0 % (13-45); MONOCYTES % (MANUAL) 1 % (3-13); SEGMENTED NEUTROPHILS % (MAN) 96 % (42-78); TOTAL CELLS COUNTED 100
[2018-10-09 12:39] LABS: ANISOCYTOSIS SLIGHT; BURR CELLS 2+; OVALOCYTES 1+; PLATELET COMMENT DECREASED; POIKILOCYTOSIS 2+; TOXIC GRANULATION 1+; TOXIC VACUOLATION PRESENT
--- NOTE | 2018-10-09 13:55 | PDOC PROGRESS REPORT ---
Subjective Progress Note for:: 10/09/18 Subjective:: Patient is feeling better today. No further diarrhea, but still very weak. Difficulty using walker, due to pain in shoulders. Eating well. leg less red, but still swollen and sore. ROS: No chest pain. No nausea. Reason For Visit: CELLULITIS LEFT LEG, HYPOTENSION, PRIMARY LUNG Physical Exam Vital Signs: Temp Pulse Resp BP Pulse Ox 97.7 F 75 16 99/61 L 91 L 10/09/18 10:48 10/09/18 10:48 10/09/18 10:48 10/09/18 10:48 10/09/18 10:48 Intake & Output 10/08/18 10/09/18 10/10/18 06:59 06:59 06:59 Intake Total 3650 2925 250 Output Total 0 300 275 Balance 3650 2625 -25 Weight 55.4 kg 54.3 kg General appearance: PRESENT: no acute distress, well-developed, well-nourished Head exam: PRESENT: normocephalic Extremities exam: PRESENT: other - Some erythema and edema. Tender to touch over left ankle. Skin exam: PRESENT: other - Erythema has greatly improved. Continues to respond to antibiotics. Results Laboratory Results: 10/09/18 11:37 10/09/18 11:37 10/09/18 10/09/18 10/09/18 11:37 11:37 11:37 WBC 17.3 H RBC 3.15 L Hgb 9.9 L Hct 29.0 L MCV 92 MCH 31.5 MCHC 34.1 RDW 15.6 H Plt Count 8 L* D Seg Neutrophils % Not Reportable Sodium 134.9 L Potassium 3.7 Chloride 109 H Carbon Dioxide 21 L Anion Gap 5 BUN 28 H Creatinine 0.66 Est GFR ( Amer) > 60 Glucose 201 H Calcium 9.5 Total Bilirubin 2.4 H AST 47 Alkaline Phosphatase 151 H Ammonia < 8.7 L Total Protein 3.7 L Albumin 1.8 L Impressions: Ankle X-Ray 10/07/18 15:42 IMPRESSION: 1. Moderate to moderate severe arthritic changes at the left ankle maybe on the basis of inflammatory arthrititides. Soft tissue swelling. Correlation suggested. 2. No acute fracture. Chest X-Ray 10/07/18 15:42 IMPRESSION: 1. Significant interval increase in size of the right suprahilar--right upper lobe mass since the prior study dated 02/04/2018. Further evaluation with CT chest with IV contrast suggested. 2. Left-sided cardiac pacemaker, new finding since the prior examination. Assessment & Plan - Diagnosis (1) Acute hepatic failure Qualifiers: Hepatic coma status: without hepatic coma Qualified Code(s): K72.00 - Acute and subacute hepatic failure without coma Is this a current diagnosis for this admission?: Yes (2) Cellulitis Qualifiers: Site of cellulitis: extremity Site of cellulitis of extremity: lower extremity Laterality: left Qualified Code(s): L03.116 - Cellulitis of left lower limb Is this a current diagnosis for this admission?: Yes (3) Diabetes mellitus type 2 in nonobese Is this a current diagnosis for this admission?: Yes (4) Lung cancer Qualifiers: Laterality: right Lung location: upper lobe of lung Qualified Code(s): C34.11 - Malignant neoplasm of upper lobe, right bronchus or lung Is this a current diagnosis for this admission?: Yes (5) Thrombocytopenia Is this a current diagnosis for this admission?: Yes Plan: Unclear as to the cause. Most likely immune mediated. He is already on steroids. Will continue to monitor. No evidence of bleeding at present.
[2018-10-09] MEDS: VANCOMYCIN HCL 750 MG in DEXTROSE 5%-WATER 250 ML IV SCH (17:45)
[2018-10-09] MEDS: ATORVASTATIN CALCIUM 80 MG TABLET PO SCH (22:14)
[2018-10-10] MEDS: VANCOMYCIN HCL 750 MG in DEXTROSE 5%-WATER 250 ML IV SCH ×2 (05:43→17:00)
[2018-10-10] MEDS: PREDNISONE 10 MG TABLET PO SCH ×3 (05:43→22:38)
--- NOTE | 2018-10-10 08:17 | PDOC PROGRESS REPORT ---
Subjective Progress Note for:: 10/10/18 Subjective:: Patient did have some bouts of confusion, but he seemed pretty with it this morning. His platelet count is dropped down to 7. Reason For Visit: CELLULITIS LEFT LEG, HYPOTENSION, PRIMARY LUNG Physical Exam Vital Signs: Temp Pulse Resp BP Pulse Ox 98.5 F 86 20 91/49 L 92 10/10/18 04:42 10/10/18 04:42 10/10/18 04:42 10/10/18 04:44 10/10/18 04:42 Intake & Output 10/09/18 10/10/18 10/11/18 06:59 06:59 06:59 Intake Total 2925 3107 Output Total 300 1350 Balance 2625 1757 Weight 54.3 kg 66.4 kg General appearance: PRESENT: no acute distress, well-developed, well-nourished Head exam: PRESENT: atraumatic, normocephalic Eye exam: PRESENT: conjunctiva pink, EOMI, PERRLA. ABSENT: scleral icterus Ear exam: PRESENT: normal external ear exam Mouth exam: PRESENT: moist, tongue midline Neck exam: ABSENT: carotid bruit, JVD, lymphadenopathy, thyromegaly Respiratory exam: PRESENT: clear to auscultation corey. ABSENT: rales, rhonchi, wheezes Cardiovascular exam: PRESENT: RRR. ABSENT: diastolic murmur, rubs, systolic murmur Pulses: PRESENT: normal dorsalis pedis pul Vascular exam: PRESENT: normal capillary refill GI/Abdominal exam: PRESENT: normal bowel sounds, soft. ABSENT: distended, guarding, mass, organolmegaly, rebound, tenderness Rectal exam: PRESENT: deferred Extremities exam: PRESENT: full ROM. ABSENT: calf tenderness, clubbing, pedal edema Neurological exam: PRESENT: alert, awake, oriented to person, oriented to place, oriented to time, oriented to situation, CN II-XII grossly intact. ABSENT: motor sensory deficit Psychiatric exam: PRESENT: appropriate affect, normal mood. ABSENT: homicidal ideation, suicidal ideation Skin exam: PRESENT: dry, intact, warm. ABSENT: cyanosis, rash Results Laboratory Results: 10/09/18 11:37 10/09/18 11:37 10/09/18 10/09/18 10/09/18 11:37 11:37 11:37 WBC 17.3 H RBC 3.15 L Hgb 9.9 L Hct 29.0 L MCV 92 MCH 31.5 MCHC 34.1 RDW 15.6 H Plt Count 8 L* D Seg Neutrophils % Not Reportable Sodium 134.9 L Potassium 3.7 Chloride 109 H Carbon Dioxide 21 L Anion Gap 5 BUN 28 H Creatinine 0.66 Est GFR ( Amer) > 60 Glucose 201 H Calcium 9.5 Total Bilirubin 2.4 H AST 47 Alkaline Phosphatase 151 H Ammonia < 8.7 L Total Protein 3.7 L Albumin 1.8 L 10/07/18 16:53 Blood Blood Culture - Final Mrsa (Meth Resis Staph Aureus) Impressions: Ankle X-Ray 10/07/18 15:42 IMPRESSION: 1. Moderate to moderate severe arthritic changes at the left ankle maybe on the basis of inflammatory arthrititides. Soft tissue swelling. Correlation suggested. 2. No acute fracture. Chest X-Ray 10/07/18 15:42 IMPRESSION: 1. Significant interval increase in size of the right suprahilar--right upper lobe mass since the prior study dated 02/04/2018. Further evaluation with CT chest with IV contrast suggested. 2. Left-sided cardiac pacemaker, new finding since the prior examination. Assessment & Plan - Diagnosis (1) Cellulitis Qualifiers: Site of cellulitis: extremity Site of cellulitis of extremity: lower extremity Laterality: left Qualified Code(s): L03.116 - Cellulitis of left lower limb Is this a current diagnosis for this admission?: Yes Plan: Improving, continue with antibiotic, seems to be getting better. (2) Acute hepatic failure Qualifiers: Hepatic coma status: without hepatic coma Qualified Code(s): K72.00 - Acute and subacute hepatic failure without coma Is this a current diagnosis for this admission?: Yes Plan: Secondary to immunotherapy, he is on high-dose steroids, was on CellCept. We stopped CellCept because of increasing bilirubin and transaminases. We will have to consider whether we restart once the cellulitis is under control. (3) Thrombocytopenia Is this a current diagnosis for this admission?: Yes Plan: Probably secondary to DIC, INR was elevated, I will resend coags and fibrinogen this morning to confirm this, we will give 1 unit of platelets because counts are now down to 7. - Time Time Spent with patient: 35 or more minutes - Inpatient Certification Based on my medical assessment, after consideration of the patient's comorbidities, presenting symptoms, or acuity I expect that the services needed warrant INPATIENT care.: Yes I certify that my determination is in accordance with my understanding of Medicare's requirements for reasonable and necessary INPATIENT services [42 CFR 412.3e].: Yes Medical Necessity: Need For Continuous Telemetry Monitoring, Need for IV Antibiotics, Risk of Complication if Not Cared For in Hospital
[2018-10-10] MEDS: METFORMIN HCL 500 MG TABLET PO SCH ×2 (08:24→16:56)
[2018-10-10] MEDS: POTASSIUM CHLORIDE 10 MEQ CAPSULE.ER PO SCH ×3 (08:24→16:56)
[2018-10-10] MEDS: INSULIN LISPRO 100 UNIT/ML 3 ML VIAL SUBCUT SCH ×4 (08:25→22:43)
[2018-10-10 10:07] LABS: INTERNATIONAL RATION (INR) 1.11; PROTHROMBIN TIME 14.3 SEC (11.4-15.4)
[2018-10-10 10:08] LABS: FIBRINOGEN 443 mg/dL (209-497); PARTIAL THROMBOPLASTIN TIME 33.7 SEC (23.5-35.8)
[2018-10-10 11:11] LABS: PATH REVIEW PATHOLOGIST REVIEWED
[2018-10-10 11:12] LABS: PATH REVIEW PATHOLOGIST REVIEWED
[2018-10-10] MEDS: CEFEPIME 1 GM/D5W RTU 1 GM/50 ML RTUPB IV SCH ×2 (11:18→22:42)
[2018-10-10] MEDS: ISOSORBIDE MONONITRATE 20 MG TABLET PO SCH ×2 (11:19→22:38)
[2018-10-10] MEDS: ASPIRIN 81 MG TABLET, ENT COATED PO SCH (11:19)
[2018-10-10] MEDS: CLOPIDOGREL BISULFATE 75 MG TABLET PO SCH (11:19)
[2018-10-10] MEDS: FAMOTIDINE 20 MG TABLET PO SCH ×2 (11:19→22:38)
[2018-10-10] MEDS: DOCUSATE SODIUM 100 MG CAPSULE PO SCH ×2 (11:20→17:03)
[2018-10-10] MEDS: OMEGA-3 ACID ETHYL ESTERS 1 GM CAPSULE PO SCH (11:20)
[2018-10-10] MEDS: INSULIN GLARGINE,HUM.REC.ANLOG 1,000 UNIT/10 ML VIAL SUBCUT SCH ×2 (11:20→22:39)
[2018-10-10] MEDS: MYCOPHENOLATE MOFETIL 250 MG CAPSULE PO SCH ×2 (11:20→22:38)
[2018-10-10] MEDS: MULTIVITAMIN TABLET PO SCH (12:08)
[2018-10-10] MEDS: NICOTINE 14 MG/24 HR PATCH.TD24 TD SCH (12:10)
--- NOTE | 2018-10-10 12:15 | PDOC CONSULTATION ---
Consultation Consult Date: 10/10/18 Provider Consulted: LEW BECK Consult reason:: Left ankle pain History of Present Illness Admission Date/PCP: 10/07/18 17:29 History of Present Illness: JEVON MEDEROS is a 63 year old male The patient is a 63-year-old white male with chronic left ankle pain who was recently admitted for lower extremity cellulitis and exacerbation of his left ankle pain. Cultures been positive for MRSA. Past Medical History Cardiac Medical History: Reports: Congestive Heart Failure - Ejection fraction 25%, Myocardial Infarction Pulmonary Medical History: Denies: Asthma, Chronic Obstructive Pulmonary Disease (COPD), Pneumonia EENT Medical History: Denies: Cataracts, Ears, Nose Neurological Medical History: Denies: Hemorrhagic CVA, Ischemic CVA, Migraine Endocrine Medical History: Reports: Diabetes Mellitus Type 2 Denies: Hypothyroidism, Obesity Renal/ Medical History: Denies: Chronic Kidney Disease, Nephrolithiasis Malignancy Medical History: Reports: Lung Cancer GI Medical History: Denies: Cirrhosis, Gastroesophageal Reflux Disease, Hepatitis, Hiatal Hernia, Peptic Ulcer Disease Musculoskeltal Medical History: Reports: Arthritis Denies: Fibromyalgia, Gout Skin Medical History: Denies: Eczema, Psoriasis Psychiatric Medical History: Reports: Tobacco Dependency Denies: Alcohol Dependency, Bipolar Disorder, Dementia, Depression, General Anxiety Disorder, Post Traumatic Stress Disorder, Substance Abuse Traumatic Medical History: Reports: None Hematology: Reports: None Infectious Medical History: Reports: None Past Surgical History Past Surgical History: Reports: Orthopedic Surgery - Effusion left ankle, Other - Implantable defibrillator Social History Information Source: Patient, [facility], [facility] Records Lives with: Spouse/Significant other Smoking Status: Current Every Day Smoker - Smokes 4 cigarettes/day. Has been trying to quit. Cigarettes Packs Per Day: 0.2 Number of Years Smokin Last Time Smoked: 10/07/18 Frequency of Alcohol Use: None Hx Recreational Drug Use: No Drugs: None Hx Prescription Drug Abuse: No - Advance Directive Resuscitation Status: Full Code Family History Family History: CAD, Malignancy - Many family members with malignancy, Other - Hydrocephalus Parental Family History Reviewed: No Children Family History Reviewed: No Sibling(s) Family History Reviewed.: No Medication/Allergy Home Medications: Multivitamin [One-A-Day Essential] 1 each PO DAILY 02/04/18 [place]-3 Fatty Acids/Fish Oil [Fish Oil 1,000 Mg Capsule] 1 each PO DAILY 1 04/07/17 Aspirin [Ecotrin 81 mg EC Tablet] 81 mg PO DAILY 10/07/18 Atorvastatin Calcium [Lipitor 80 mg Tablet] 80 mg PO QHS 10/07/18 Clopidogrel Bisulfate [Plavix 75 mg Tablet] 75 mg PO DAILY 10/07/18 Isosorbide Mononitrate [Ismo 20 Mg Tablet] 20 mg PO BID 10/07/18 Lisinopril [Prinivil 5 mg Tablet] 2.5 mg PO DAILY 10/07/18 Metformin HCl [Metformin HCl ER] 1,000 mg PO DAILY 10/07/18 Metoprolol Tartrate [Lopressor 25 mg Tablet] 12.5 mg PO Q12 10/07/18 Mycophenolate Mofetil [Cellcept] 500 mg PO Q12 10/07/18 Prednisone 20 mg PO Q8 10/07/18 Allergies/Adverse Reactions: No Known Allergies Allergy (Verified 02/04/18 19:47) Review of Systems All systems: as per [facility] Physical Exam Vital Signs: Temp Pulse Resp BP Pulse Ox 36.7 C 95 18 99/61 L 94 10/10/18 07:57 10/10/18 07:57 10/10/18 07:57 10/10/18 07:57 10/10/18 07:57 Intake & Output 10/09/18 10/10/18 10/11/18 06:59 06:59 06:59 Intake Total 2925 3157 Output Total 300 1350 Balance 2625 1807 Weight 54.3 kg 66.4 kg Physical Exam: Patient is a thin middle-aged white male lying in a hospital bed concurrently undergoing an echocardiogram. His does most of the talking. General appearance: PRESENT: no acute distress, thin Head exam: PRESENT: normocephalic Respiratory exam: PRESENT: unlabored Cardiovascular exam: PRESENT: RRR Pulses: PRESENT: +1 pedal pulses bilateral GI/Abdominal exam: PRESENT: soft Rectal exam: PRESENT: deferred Extremities exam: PRESENT: other - Left ankle with erythema over the medial malleolus. Seems to be no ascending lymphangitis of the the informs me that there had been previously. There is minimal edema. Distal neurovascular examination is intact. Neurological exam: PRESENT: alert, awake, oriented to person, oriented to place, oriented to time, oriented to situation. ABSENT: motor sensory deficit Skin exam: PRESENT: dry, intact, warm. ABSENT: cyanosis, rash Results Laboratory Results: 10/09/18 11:37 10/09/18 11:37 10/09/18 10/09/18 10/09/18 11:37 11:37 11:37 WBC 17.3 H RBC 3.15 L Hgb 9.9 L Hct 29.0 L MCV 92 MCH 31.5 MCHC 34.1 RDW 15.6 H Plt Count 8 L* D Seg Neutrophils % Not Reportable Sodium 134.9 L Potassium 3.7 Chloride 109 H Carbon Dioxide 21 L Anion Gap 5 BUN 28 H Creatinine 0.66 Est GFR ( Amer) > 60 Glucose 201 H Calcium 9.5 Total Bilirubin 2.4 H AST 47 Alkaline Phosphatase 151 H Ammonia < 8.7 L Total Protein 3.7 L Albumin 1.8 L 10/08/18 06:34 Clean Catch Midstream Urine Culture - Final NO GROWTH 2 DAYS 10/07/18 17:23 Blood Blood Culture - Final Mrsa (Meth Resis Staph Aureus) 10/07/18 16:53 Blood Blood Culture - Final Mrsa (Meth Resis Staph Aureus) Impressions: Ankle X-Ray 10/07/18 15:42 IMPRESSION: 1. Moderate to moderate severe arthritic changes at the left ankle maybe on the basis of inflammatory arthrititides. Soft tissue swelling. Correlation suggested. 2. No acute fracture. Chest X-Ray 10/07/18 15:42 IMPRESSION: 1. Significant interval increase in size of the right suprahilar--right upper lobe mass since the prior study dated 02/04/2018. Further evaluation with CT chest with IV contrast suggested. 2. Left-sided cardiac pacemaker, new finding since the prior examination. Status: Imported from PACS Assessment & Plan - Diagnosis (1) Cellulitis Qualifiers: Site of cellulitis: extremity Site of cellulitis of extremity: lower extremity Laterality: left Qualified Code(s): L03.116 - Cellulitis of left lower limb Is this a current diagnosis for this admission?: Yes Plan: 63-year-old white male with chronic left ankle pain and now with superimposed cellulitis with questionable underlying septic joint. He is chronic degenerative changes in the left ankle either from previous trauma and/or from a crystalline arthropathy. The patient has a thrombocytopenia with platelet count of 8000 and an ejection fraction of 24% which make him a very poor surgical candidate at this point. My recommendation is that we continue with IV antibiotics and a course of observation of the left lower extremity. - Time Time Spent: 50 to 70 Minutes Anticipated discharge: Home with Homehealth Within: Other
[2018-10-10] MEDS: LISINOPRIL 5 MG TABLET PO SCH (12:16)
[2018-10-10] MEDS: METOPROLOL TARTRATE 25 MG TABLET PO SCH ×2 (12:16→22:45)
--- NOTE | 2018-10-10 14:22 | PDOC PROGRESS REPORT ---
Subjective Progress Note for:: 10/10/18 Subjective:: 10/08/2018 He was admitted through the emergency room with cellulitis of the left lower leg progressed over the last 2 to 3 days. This is around the ankle. 3 to 4 years ago patient had trauma to the left ankle and by history it sounds as though it never healed. The redness however is new over the last 2 to 3 days patient is also had fever and chills patient is being admitted to the hospital for sepsis. Other comorbidities include congestive heart failure ejection fracture 25% and MO, also diabetes, thrombocytopenia hyponatremia acute hepatic failure coronary artery disease and lung cancer Patient is admitted on 10/07/2018 for sepsis of the left ankle 10/09/2018 his temperature today is 99, blood pressure is stable at 110/55, O2 sat 92%, he appears to run average around 95% on room air. White count 16.2 however patient is on steroids, platelets 39,000 though patient is undergoing chemo. Lecture lites showed a potassium slightly low at 3.1, serum glucose is running better at 172, however fingerstick blood sugars are up in the high 200s low 300s Blood cultures are growing out gram-positive cocci, no sensitivities yet. will increase patient's Lantus to every 12 hours. Tomorrow morning put in a consult for Dr. Graham to see the patient as the patient has an appointment on Wednesday as an outpatient. Will elevate left lower extremity. Will check ammonia level. 10/10/2018 patient's vital signs remained stable in spite of his + blood cultures . Temperature 98 to pulse of 95 blood pressure 94/64. His blood pressures have been trending down now for the last day patient may need a liter of fluids will decide the afternoon appreciate oncology report do not have today's values back yet waiting for platelet count and WBCs PT INR and PTT are normal as well as fibrinogen level of [address] Graham's input I concur that at this point risk outweigh the benefits for any type of surgical invention, and/or even joint aspiration Patient seems depressed today he is somewhat frustrated with his illness. Actual cellulitis appears to be getting better as far as the redness is smaller there is actual less soft tissue swelling as well Reason For Visit: CELLULITIS LEFT LEG, HYPOTENSION, PRIMARY LUNG Physical Exam Vital Signs: Temp Pulse Resp BP Pulse Ox 98.2 F 95 22 H 94/64 L 94 10/10/18 13:47 10/10/18 13:47 10/10/18 13:47 10/10/18 13:47 10/10/18 13:47 Intake & Output 10/09/18 10/10/18 10/11/18 06:59 06:59 06:59 Intake Total 2925 3157 0 Output Total 300 1350 Balance 2625 1807 0 Weight 54.3 kg 66.4 kg General appearance: PRESENT: other - Somewhat depressed Respiratory exam: PRESENT: clear to auscultation corey. ABSENT: rales, rhonchi, wheezes Cardiovascular exam: PRESENT: RRR. ABSENT: diastolic murmur, rubs, systolic murmur Neurological exam: PRESENT: alert, awake, oriented to person, oriented to place, oriented to time, oriented to situation, CN II-XII grossly intact. ABSENT: motor sensory deficit Psychiatric exam: PRESENT: flat affect, other - Depressed Skin exam: PRESENT: erythema, other - Less soft tissue swelling to the left an kle as well as less redness Results Laboratory Results: 10/09/18 11:37 10/09/18 11:37 10/10/18 11:58 Blood Type O POSITIVE 10/07/18 17:23 Blood Blood Culture - Final Mrsa (Meth Resis Staph Aureus) 10/08/18 06:34 Clean Catch Midstream Urine Culture - Final NO GROWTH 2 DAYS 10/07/18 16:53 Blood Blood Culture - Final Mrsa (Meth Resis Staph Aureus) Impressions: Ankle X-Ray 10/07/18 15:42 IMPRESSION: 1. Moderate to moderate severe arthritic changes at the left ankle maybe on the basis of inflammatory arthrititides. Soft tissue swelling. Correlation suggested. 2. No acute fracture. Chest X-Ray 10/07/18 15:42 IMPRESSION: 1. Significant interval increase in size of the right suprahilar--right upper lobe mass since the prior study dated 02/04/2018. Further evaluation with CT chest with IV contrast suggested. 2. Left-sided cardiac pacemaker, new finding since the prior examination. Assessment and Plan - Diagnosis (1) Cellulitis Qualifiers: Site of cellulitis: extremity Site of cellulitis of extremity: lower extremity Laterality: left Qualified Code(s): L03.116 - Cellulitis of left lower limb Is this a current diagnosis for this admission?: Yes Plan: 10/07/2018-the patient has cellulitis of the left medial malleolus. He has associated lymphangitis with red streaking into the lower leg. He is immunosuppressed with prednisone but does not exhibit neutropenia. He will be placed on vancomycin and cefepime. Blood cultures are pending. 10/08/2018 cellulitis includes both the medial and lateral malleolus. Patient continues vancomycin and cefepime. Preliminary blood cultures are positive showing gram-positive cocci urine culture pending Blood pressure 93/53 temp 98.6 pulse 84 O2 sat on room air 96% 10/09/2018 clinically patient appears to be improving, less redness. we will continue vancomycin and cefepime until sensitivities are back to graft 10/10/2018 the area of redness to the left ankle is decreasing as well as the swelling. Patient has grown back MRSA blood cultures Patient was put on Maxipime on 10-07 and vancomycin on 10-09. Patient has been seen by both oncology and the orthopedics (2) Diabetes mellitus type 2 in nonobese Is this a current diagnosis for this admission?: Yes Plan: 10/07/2018-the combination of prednisone and acute infection have led to marked hyperglycemia. We will continue his metformin. He will be placed on a sliding scale with Accu-Cheks before meals and at bedtime. Based on his sliding scale needs consider long-acting insulin. 10/08/2018 serum glucose 331 and 172. Fingerstick glucose yesterday 492 and today 188 patient is being covered with a sliding scale, and on his metformin. 10/09/2018 change his Lantus to a twice daily dosing instead of a daily dosing. Patient is on steroids. Check an A1c 10/10/2018 hemoglobin A1c yesterday was 9.51. Glucose levels seem to be trending down 174-233 (3) Hyponatremia Is this a current diagnosis for this admission?: Yes Plan: 10/07/2018-the patient's serum sodium is low. He is not on diuretic therapy. This certainly could be related to his lung mass. He has received lactated Ring er's and normal saline and will continue on normal saline. We will continue to monitor his serum sodium levels. 10/08/2018 sodium yesterday was 129.7 today it is slightly at 132.6. BUN yesterday was 34 creatinine 0.94 today it is 29 and 0.68 10/09/2018 we will recheck labs today 10/10/2018 sodium yesterday was 134.9, is pending today (4) Leukocytosis Qualifiers: Leukocytosis type: bandemia Qualified Code(s): D72.825 - Bandemia Is this a current diagnosis for this admission?: Yes Plan: Patient's white count on admission was 13.5 today it is 16.2 patient is on antib iotics IV patient's vital signs appears 10/09/2018 patient currently on cefepime and vancomycin started 10/07/2018. Recheck WBCs today 10/10/2018 yesterday's WBCs were 17.3 patient on both antibiotics as listed above. Patient growing MRSA from blood (5) Lung cancer Qualifiers: Laterality: right Lung location: upper lobe of lung Qualified Code(s): C34.11 - Malignant neoplasm of upper lobe, right bronchus or lung Is this a current diagnosis for this admission?: Yes Plan: 10/07/2018-the patient was in fact that his oncology office when he was directed to the emergency department. I have asked oncology to see the patient during this admission. I would like them to monitor any chemotherapeutic agents making appropriate adjustments if required. 10/08/2018 oncology is pending. Defer to their judgment. Chest x-ray on admission showed significant interval increase in the size of the mass compared to prior study 02/04/2018. Suggest CT scan. Also pacemaker since last examination. CT scan has not been ordered we will defer to oncology. 10/09/2018 appreciate oncology consult, agree with her recommendations. We will follow together 10/10/2018. Patient remains thrombocytopenic and currently being treated by oncology (6) Severe sepsis Is this a current diagnosis for this admission?: Yes Plan: 10/07/2018-patient meets criteria. Sepsis was present on admission. Sepsis is secondary to cellulitis. Sepsis criteria hypotension with mean arterial pressure less than 70, acute thrombocytopenia with platelets less than 100,000, acute liver dysfunction with total bilirubin greater than 1.9. The patient has elevated lactic acid as well. Repeat lactic acid levels have been ordered. He is receiving IV fluids. We need to be judicious with his IV fluids as his ejection fraction is only 25% and he is susceptible to congestive heart failure. We will monitor his liver function and platelet count. If his blood pressure does not improve with fluids, antibiotics and supportive care he may need vasopressors. 10/08/2018 pressure appears to have stabilized however platelets have gone down now to 39,000 from admission of 95,000,blood pressure is actually improved on admission it was 75/44 now his systolic is in the mid 90s to 100s diastolic is around 60. White count is basically stable slightly elevated Lactic acid on admission was 5.9 this went up slightly to 6.1 and now it is back down to 1.4. Clinically looking at the patient he does not appear to be septic. 10/09/2018 patient's vital signs are stable, he is afebrile. No clinical indications of shock time. Certainly patient appears to be immunocompromised, and other comorbidities make this patient very acceptable to rapid drastic changes. Continue antibiotics until sensitivities have returned. Monitor lab work. Ask orthopedics to come by and see the patient while he is in the hospital. 10/10/2018 patient remains septic and on double antibiotics. Patient's blood pressure slightly lower today will need to follow this, patient was very hypotensive on admission. We will repeat a lactic acid to see if it is trending up. Agree with orthopedics nothing invasive needs to be done at this time (7) Thrombocytopenia Is this a current diagnosis for this admission?: Yes Plan: 10/07/2018-the patient's platelet count was less than 100,000. He has no active bleeding. With his malignancy he is at risk for hypercoagulability. I am going to start him on subcutaneous heparin. His platelet count needs to be monitored closely and if there is any sign of worsening thrombocytopenia I would suggest discontinuing his heparin. 10/08/2018 as above note mentions due to his decrease in thrombocytopenia with platelets now at 35,000 we will discontinue his heparin. 10/09/2018 defer thrombocytopenia to oncology 10/10/2018 oncology is following labs, patient may need unit of platelets - Time Time Spent with patient: 25-34 minutes
[2018-10-10 15:24] LABS: HEMATOCRIT 27.5 % (37.9-51.0); HEMOGLOBIN 9.3 g/dL (13.5-17.0); MEAN CORPUSCULAR HEMOGLOBIN 31.2 pg (27.0-33.4); MEAN CORPUSCULAR HGB CONC 33.7 g/dL (32.0-36.0); MEAN CORPUSCULAR VOLUME 93 fl (80-97); RED BLOOD COUNT 2.97 10^6/uL (4.35-5.55); RED CELL DISTRIBUTION WIDTH 15.3 % (11.5-14.0); WHITE BLOOD COUNT 15.7 10^3/uL (4.0-10.5)
[2018-10-10 15:40] LABS: ANION GAP 5 (5-19); BLOOD UREA NITROGEN 26 mg/dL (7-20); CALCIUM 9.7 mg/dL (8.4-10.2); CARBON DIOXIDE 22 mmol/L (22-30); CHLORIDE 109 mmol/L (98-107); GLUCOSE 131 mg/dL (75-110); POTASSIUM 3.8 mmol/L (3.6-5.0)
[2018-10-10 15:51] LABS: PLATELET COUNT 40 10^3/uL (150-450)
[2018-10-10 15:55] LABS: ABSOLUTE LYMPHOCYTES# (MANUAL) 0.5 10^3/uL (0.5-4.7); ABSOLUTE MONOCYTES # (MANUAL) 0.2 10^3/uL (0.1-1.4); BAND NEUTROPHILS % (MANUAL) 4 % (3-5); BASOPHILS % (MANUAL) 0 % (0-2); EOSINOPHILS % (MANUAL) 0 % (0-6); LYMPHOCYTES % (MANUAL) 3 % (13-45); MONOCYTES % (MANUAL) 1 % (3-13); SEGMENTED NEUTROPHILS % (MAN) 92 % (42-78); TOTAL CELLS COUNTED 100
[2018-10-10 15:56] LABS: ANISOCYTOSIS SLIGHT; BURR CELLS SLIGHT; OVALOCYTES SLIGHT; PLATELET COMMENT DECREASED; POIKILOCYTOSIS SLIGHT
[2018-10-10 15:57] LABS: TOXIC GRANULATION 1+; TOXIC VACUOLATION PRESENT
[2018-10-10] MEDS ORDERED: NORMAL SALINE 500 ML IV ONE (17:00)
--- NOTE | 2018-10-10 19:00 | XCELERA REPORT ---
[address] [address] Transthoracic Echocardiogram Report Name: JEVON MEDEROS Age: 63 yrs Gender: Male : 1955 Patient Status: Inpatient Patient Location: [address] [place], [place] [address] Study Date: 10/10/2018 11:15 AM Height: 65 in Weight: 123 lb BSA: 1.6 m2 Procedure: A two-dimensional transthoracic echocardiogram with color flow and Doppler was performed. The study was technically limited with all images being suboptimal in quality. Reason For Study: Hx EF 25%, sepsis. Reassess LV Fxn History: CARDIOMYOPATHY. Ordering Physician: FELICITY PERDOMO Performed By: Ramiro Chery Interpretation Summary The left ventricle is moderately to severly dilated. There is normal left ventricular wall thickness. LV EF is 20% Left ventricular systolic function is severely reduced. Doppler measurements suggest impaired left ventricular relaxation, which is associated with grade I/IV or mild diastolic dysfunction LV apical segments are akinetic.The rest of the LV kirby are severely hypokinetic. There is no thrombus. No defenite ASD ,VSD ,or PFO seen. The right ventricle is not well visualized secondary to technical limitations AICD /Pacemaker lead in RA and RV. The right atrium is normal. The left atrial size is normal. There is no evidence of mitral valve prolapse. There is no vegetation seen on the mitral valve. There is no mitral valve stenosis. There is a mild to moderate amount of mitral regurgitation There is no aortic valvular vegetation. There is aortic sclerosis without aortic stenosis. There is no LVOT obstruction. There is a trace amount of aortic regurgitation There is no tricuspid stenosis. There is a mild to moderate amount of tricuspid regurgitation There is mild pulmonary hypertension by echo RVSP is 39 to 44 mm of Hg , with RA mean of 15 to 20. There is no pulmonic valvular stenosis. There is a trace amount of pulmonic regurgitation The aortic root is normal size. The inferior vena cava appeared dilated and decreased < 50% with respiration (RAP 15-20 mmHg) There is no pericardial effusion. MMode/2D Measurements & Calculations RVDd: 4.0 cm LVIDd: 7.1 cm FS: 11.4 % Ao root diam: 3.6 cm IVSd: 0.84 cm LVIDs: 6.3 cm EDV(Teich): 265.0 ml Ao root area: 10.1 cm2 LVPWd: 0.75 cm ESV(Teich): 201.7 ml LA dimension: 3.7 cm EF(Teich): 23.9 % Doppler Measurements & Calculations MV E max susana: MV P1/2t max susana: Ao V2 max: LV V1 max P.8 cm/sec 87.3 cm/sec 129.1 cm/sec 6.7 mmHg MV A max susana: MV P1/2t: 29.0 msec Ao max P.7 mmHgLV V1 max: 117.8 cm/sec MVA(P1/2t): 7.6 cm2 129.0 cm/sec MV E/A: 0.69 MV dec slope: 881.1 cm/sec2 MV dec time: 0.19 sec PA V2 max: TR max susana: MV P1/2t-pr_phl: 131.4 cm/sec 243.0 cm/sec 29.0 msec PA max P.9 mmHgTR max P.6 mmHg Left Ventricle The left ventricle is moderately to severly dilated. There is normal left ventricular wall thickness. LV EF is 20%. Left ventricular systolic function is severely reduced. Doppler measurements suggest impaired left ventricular relaxation, which is associated with grade I/IV or mild diastolic dysfunction. LV apical segments are akinetic.The rest of the LV kirby are severely hypokinetic. There is no thrombus. No defenite ASD ,VSD ,or PFO seen. Right Ventricle The right ventricle is not well visualized secondary to technical limitations. AICD /Pacemaker lead in RA and RV. Atria The right atrium is normal. The left atrial size is normal. Mitral Valve There is no evidence of mitral valve prolapse. There is no vegetation seen on the mitral valve. There is no mitral valve stenosis. There is a mild to moderate amount of mitral regurgitation. Aortic Valve There is no aortic valvular vegetation. There is aortic sclerosis without aortic stenosis. There is no LVOT obstruction. There is a trace amount of aortic regurgitation. Tricuspid Valve There is no tricuspid stenosis. There is a mild to moderate amount of tricuspid regurgitation. There is mild pulmonary hypertension by echo. RVSP is 39 to 44 mm of Hg , with RA mean of 15 to 20. Pulmonic Valve There is no pulmonic valvular stenosis. There is a trace amount of pulmonic regurgitation. Great Vessels The aortic root is normal size. The inferior vena cava appeared dilated and decreased < 50% with respiration (RAP 15-20 mmHg). Effusions There is no pericardial effusion. : FELICITY PERDOMO > Tatiana Nelson
[2018-10-10] MEDS: ATORVASTATIN CALCIUM 80 MG TABLET PO SCH (22:37)
[2018-10-11] MEDS: VANCOMYCIN HCL 750 MG in DEXTROSE 5%-WATER 250 ML IV SCH ×2 (05:06→17:33)
[2018-10-11] MEDS: PREDNISONE 10 MG TABLET PO SCH ×3 (05:06→21:36)
[2018-10-11 06:16] LABS: VANCOMYCIN,TROUGH 14.4 ug/mL (5.0-20.0)
[2018-10-11] MEDS ORDERED: VANCOMYCIN HCL 500 MG in DEXTROSE 5%-WATER 100 ML IV ONE (08:00)
--- NOTE | 2018-10-11 08:41 | PDOC PROGRESS REPORT ---
Subjective Progress Note for:: 10/11/18 Subjective:: Patient feeling better today and mentating much better, fully oriented and less with bouts of confusion. Reviewed blood cultures and patient has 2+ cultures for MRSA. Today we had a long discussion about this. We believe the source is likely the left ankle as it is much better on antibiotics now. Given the fact that we have MRSA in the cultures I will discontinue cefepime and continue vancomycin only. I also discussed his case extensively with the hospitalist team, will order ID consult. We also discussed with the patient, that it is time now to restage his cancer with CT of the chest abdomen pelvis and I order that today as well. Today spent 45 minutes in discussion and coordination of care. Reason For Visit: CELLULITIS LEFT LEG, HYPOTENSION, PRIMARY LUNG Physical Exam Vital Signs: Temp Pulse Resp BP Pulse Ox 98.3 F 90 18 114/63 92 10/11/18 03:48 10/11/18 03:48 10/11/18 03:48 10/11/18 03:48 10/11/18 03:48 Intake & Output 10/10/18 10/11/18 10/12/18 06:59 06:59 06:59 Intake Total 3157 1559 Output Total 1350 580 Balance 1807 979 Weight 66.4 kg 62.3 kg General appearance: PRESENT: no acute distress, well-developed, well-nourished Head exam: PRESENT: atraumatic, normocephalic Eye exam: PRESENT: conjunctiva pink, EOMI, PERRLA. ABSENT: scleral icterus Ear exam: PRESENT: normal external ear exam Mouth exam: PRESENT: moist, tongue midline Neck exam: ABSENT: carotid bruit, JVD, lymphadenopathy, thyromegaly Respiratory exam: PRESENT: clear to auscultation corey. ABSENT: rales, rhonchi, wheezes Cardiovascular exam: PRESENT: RRR. ABSENT: diastolic murmur, rubs, systolic murmur Pulses: PRESENT: normal dorsalis pedis pul Vascular exam: PRESENT: normal capillary refill GI/Abdominal exam: PRESENT: normal bowel sounds, soft. ABSENT: distended, guarding, mass, organolmegaly, rebound, tenderness Rectal exam: PRESENT: deferred Extremities exam: PRESENT: full ROM. ABSENT: calf tenderness, clubbing, pedal edema Neurological exam: PRESENT: alert, awake, oriented to person, oriented to place, oriented to time, oriented to situation, CN II-XII grossly intact. ABSENT: motor sensory deficit Psychiatric exam: PRESENT: appropriate affect, normal mood. ABSENT: homicidal ideation, suicidal ideation Skin exam: PRESENT: dry, intact, warm. ABSENT: cyanosis, rash Results Laboratory Results: 10/10/18 15:07 10/11/18 05:29 10/10/18 10/10/18 10/10/18 11:58 15:07 15:07 WBC 15.7 H RBC 2.97 L Hgb 9.3 L Hct 27.5 L MCV 93 MCH 31.2 MCHC 33.7 RDW 15.3 H Plt Count 40 L D Seg Neutrophils % Not Reportable Sodium 136.2 L Potassium 3.8 Chloride 109 H Carbon Dioxide 22 Anion Gap 5 BUN 26 H Creatinine 0.71 Est GFR ( Amer) > 60 Glucose 131 H Lactic Acid Calcium 9.7 Blood Type O POSITIVE 10/10/18 10/11/18 15:07 05:29 WBC RBC Hgb Hct MCV MCH MCHC RDW Plt Count Seg Neutrophils % Sodium Potassium Chloride Carbon Dioxide Anion Gap BUN Creatinine 0.66 Est GFR ( Amer) > 60 Glucose Lactic Acid 3.1 H Calcium Blood Type 10/07/18 17:23 Blood Blood Culture - Final Mrsa (Meth Resis Staph Aureus) 10/08/18 06:34 Clean Catch Midstream Urine Culture - Final NO GROWTH 2 DAYS Impressions: Ankle X-Ray 10/07/18 15:42 IMPRESSION: 1. Moderate to moderate severe arthritic changes at the left ankle maybe on the basis of inflammatory arthrititides. Soft tissue swelling. Correlation suggested. 2. No acute fracture. Chest X-Ray 10/07/18 15:42 IMPRESSION: 1. Significant interval increase in size of the right suprahilar--right upper lobe mass since the prior study dated 02/04/2018. Further evaluation with CT chest with IV contrast suggested. 2. Left-sided cardiac pacemaker, new finding since the prior examination. Assessment & Plan - Diagnosis (1) Cellulitis Qualifiers: Site of cellulitis: extremity Site of cellulitis of extremity: lower extremity Laterality: left Qualified Code(s): L03.116 - Cellulitis of left lower limb Is this a current diagnosis for this admission?: Yes Plan: MRSA cellulitis resulting in sepsis, continue with vancomycin, discontinue cefepime. ID consultation today. (2) Acute hepatic failure Qualifiers: Hepatic coma status: without hepatic coma Qualified Code(s): K72.00 - Acute and subacute hepatic failure without coma Is this a current diagnosis for this admission?: Yes Plan: LFTs improved, will follow, secondary to acute hepatitis from immunotherapy (3) Thrombocytopenia Is this a current diagnosis for this admission?: Yes Plan: Improved posttransfusion, most likely 2nd to DIC from sepsis/cellulitis. - Time Time Spent with patient: 35 or more minutes - Inpatient Certification Based on my medical assessment, after consideration of the patient's comorbidities, presenting symptoms, or acuity I expect that the services needed warrant INPATIENT care.: Yes I certify that my determination is in accordance with my understanding of Medicare's requirements for reasonable and necessary INPATIENT services [42 CFR 412.3e].: Yes Medical Necessity: Need For Continuous Telemetry Monitoring, Need for IV Antibiotics, Risk of Complication if Not Cared For in Hospital
[2018-10-11] MEDS: POTASSIUM CHLORIDE 10 MEQ CAPSULE.ER PO SCH ×2 (09:50→12:13)
[2018-10-11] MEDS: ISOSORBIDE MONONITRATE 20 MG TABLET PO SCH ×2 (09:51→21:39)
[2018-10-11] MEDS: MYCOPHENOLATE MOFETIL 250 MG CAPSULE PO SCH ×2 (09:52→21:36)
[2018-10-11] MEDS: NICOTINE 14 MG/24 HR PATCH.TD24 TD SCH (09:53)
[2018-10-11] MEDS: MULTIVITAMIN TABLET PO SCH (09:53)
[2018-10-11] MEDS: METFORMIN HCL 500 MG TABLET PO SCH ×2 (09:54→17:21)
[2018-10-11] MEDS: FAMOTIDINE 20 MG TABLET PO SCH ×2 (09:54→21:36)
[2018-10-11] MEDS: CLOPIDOGREL BISULFATE 75 MG TABLET PO SCH (09:55)
[2018-10-11] MEDS: OMEGA-3 ACID ETHYL ESTERS 1 GM CAPSULE PO SCH (09:55)
[2018-10-11] MEDS: ASPIRIN 81 MG TABLET, ENT COATED PO SCH (09:56)
[2018-10-11] MEDS: METOPROLOL TARTRATE 25 MG TABLET PO SCH ×2 (09:56→21:37)
[2018-10-11] MEDS: LISINOPRIL 5 MG TABLET PO SCH (09:57)
[2018-10-11] MEDS: INSULIN LISPRO 100 UNIT/ML 3 ML VIAL SUBCUT SCH ×4 (09:57→21:37)
[2018-10-11] MEDS: INSULIN GLARGINE,HUM.REC.ANLOG 1,000 UNIT/10 ML VIAL SUBCUT SCH ×2 (09:58→21:38)
[2018-10-11] MEDS: DOCUSATE SODIUM 100 MG CAPSULE PO SCH ×2 (10:11→17:31)
--- NOTE | 2018-10-11 17:30 | RADIOLOGY REPORT (SQ) ---
EXAM DESCRIPTION: CT ABD/PELVIS WITH IV ONLY COMPLETED DATE/TIME: 10/11/2018 4:57 pm REASON FOR STUDY: restaging stage 3 lung cancer COMPARISON: 07/04/2018 TECHNIQUE: CT scan of the abdomen and pelvis performed using helical scanning technique with dynamic intravenous contrast injection. No oral contrast. Images reviewed with lung, soft tissue, and bone windows. Reconstructed coronal and sagittal MPR images reviewed. Delayed images for evaluation of the urinary system also acquired. All images stored on PACS. All CT scanners at this facility use dose modulation, iterative reconstruction, and/or weight based d osing when appropriate to reduce radiation dose to as low as reasonably achievable (ALARA). [facility]: Dose Right [facility]: CareDose [facility]: Dose Right [facility]: Teradose 4D [facility]: Instabug CONTRAST TYPE AND DOSE: contrast/concentration: Isovue 350.00 mg/ml; Total Contrast Delivered: 71.0 ml; Total Saline Delivered: 66.0 ml RENAL FUNCTION: BUN 26, creatinine 0.71 RADIATION DOSE: CT Rad equipment meets quality standard of care and radiation dose reduction techniq ues were employed. CTDIvol: 4.4 - 4.9 mGy. DLP: 477 mGy-cm.. LIMITATIONS: None. FINDINGS: LOWER CHEST: There are bilateral pleural effusions. There is basilar atelectasis or pneum onia. LIVER: There is interposition of the colon. No focal hepatic lesions. SPLEEN: Normal size. No focal lesions. PANCREAS: No masses. No significant calcifications. No adjacent inflammation or peripancreatic fluid collections. Pancreatic duct not dilated. GALLBLADDER: No identified stones by CT criteria. No inflammatory changes to suggest cholecystitis. ADRENAL GLANDS: No significant masses or asymmetry. RIGHT KIDNEY AND URETER: No solid masses. No significant calcifications. No hydronephrosis or hyd roureter. LEFT KIDNEY AND URETER: No solid masses. No significant calcifications. No hydronephrosis or hydr oureter. AORTA AND VESSELS: No aneurysm. No dissection. Renal arteries, SMA, celiac without stenosis. RETROPERITONEUM: No retroperitoneal adenopathy, hemorrhage or masses. BOWEL AND PERITONEAL CAVITY: Small amount of ascites. No evidence of mechanical obstruction. APPENDIX: Not visualized. PELVIS: There is a small amount of free fluid the pelvis. ABDOMINAL WALL: There is subcutaneous edema. No focal abdominal wall hernias. BONES: No significant or acute findings. OTHER: No other significant finding. IMPRESSION: 1. Small bilateral pleural effusions. 2. Free fluid surrounding the liver spleen an within the pelvis. 3. No evidence of metastatic disease in the abdomen or pelvis. TECHNICAL DOCUMENTATION: JOB ID: [id number] Quality ID # [id number]: Final reports with documentation of one or more dose reduction techniques (e.g., Au tomated exposure control, adjustment of the mA and/or kV according to patient size, use of iterative reconstruction technique) 2010 [employer]- All Rights Reserved Reading location - IP/workstation name: [email or web address]
--- NOTE | 2018-10-11 17:46 | Progress Note Acknowledgement ---
Progress Note Acknowledgement Progess Note Acknowledgement: I, the undersigned member of the medical staff with appropriate privileges and with supervisory authority over Stephanie Morales, a [facility] practice allied health professional, acknowledge that I have reviewed the progress notes entered on this patient, and in my professional judgment believe that the assessment made and/or any care evidenced was appropriate
--- NOTE | 2018-10-11 17:46 | PDOC PROGRESS REPORT ---
Subjective Progress Note for:: 10/11/18 Subjective:: The patient is a 63-year-old male with a past medical history significant for active right lung cancer (currently under treatment by Dr. 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 The patient was seen on morning rounds. He was found resting in bed comfortably on room air. He does continue to have Left medial ankle pain with significant erythema, edema, and induration. Otherwise, he denies fever, chills, chest pain, palpitations, dyspnea, abdominal pain, nausea vomiting or diarrhea. We discussed his MRSA bacteremia and likely recommendations for to 4 weeks of IV antibiotics given the patient's septic joint and AICD. He had no other questions or concerns at this time (Infectious disease consult pending). No concerns per nursing. Reason For Visit: CELLULITIS LEFT LEG, HYPOTENSION, PRIMARY LUNG Physical Exam Vital Signs: Temp Pulse Resp BP Pulse Ox 98.6 F 88 20 105/56 L 93 10/11/18 16:41 10/11/18 16:41 10/11/18 16:41 10/11/18 16:41 10/11/18 16:41 Intake & Output 10/10/18 10/11/18 10/12/18 06:59 06:59 06:59 Intake Total 3157 1559 1900 Output Total 1350 580 375 Balance 4088 153 4454 Weight 66.4 kg 62.3 kg General appearance: PRESENT: no acute distress, disheveled, well-developed, well-nourished Head exam: PRESENT: atraumatic, normocephalic Eye exam: PRESENT: conjunctiva pink, EOMI, PERRLA. ABSENT: scleral icterus Ear exam: PRESENT: normal external ear exam Mouth exam: PRESENT: moist, tongue midline Neck exam: ABSENT: carotid bruit, JVD, lymphadenopathy, thyromegaly Respiratory exam: PRESENT: clear to auscultation corey, symmetrical, unlabored. ABSENT: rales, rhonchi, wheezes Cardiovascular exam: PRESENT: RRR, +S1, +S2. ABSENT: diastolic murmur, rubs, systolic murmur Pulses: PRESENT: normal dorsalis pedis pul Vascular exam: PRESENT: normal capillary refill GI/Abdominal exam: PRESENT: normal bowel sounds, soft. ABSENT: distended, guarding, mass, organolmegaly, rebound, tenderness Rectal exam: PRESENT: deferred Extremities exam: PRESENT: full ROM. ABSENT: calf tenderness, clubbing, pedal edema Neurological exam: PRESENT: alert, awake, oriented to person, oriented to place, oriented to time, oriented to situation, CN II-XII grossly intact. ABSENT: motor sensory deficit Psychiatric exam: PRESENT: agitated, appropriate affect, normal mood. ABSENT: homicidal ideation, suicidal ideation Skin exam: PRESENT: dry, warm, other - Edema to lateral and medial aspects of left ankle; significantly worse on medial aspect with associated edema, induration. Overall improved.. ABSENT: cyanosis, rash Results Laboratory Results: 10/10/18 15:07 10/11/18 05:29 10/11/18 10/11/18 05:29 09:17 Creatinine 0.66 Est GFR ( Amer) > 60 Lactic Acid 1.3 10/07/18 17:23 Blood Blood Culture - Final Mrsa (Meth Resis Staph Aureus) Impressions: Ankle X-Ray 10/07/18 15:42 IMPRESSION: 1. Moderate to moderate severe arthritic changes at the left ankle maybe on the basis of inflammatory arthrititides. Soft tissue swelling. Correlation suggested. 2. No acute fracture. Chest X-Ray 10/07/18 15:42 IMPRESSION: 1. Significant interval increase in size of the right suprahilar--right upper lobe mass since the prior study dated 02/04/2018. Further evaluation with CT chest with IV contrast suggested. 2. Left-sided cardiac pacemaker, new finding since the prior examination. Assessment and Plan - Diagnosis (1) Cellulitis Qualifiers: Site of cellulitis: extremity Site of cellulitis of extremity: lower extremity Laterality: left Qualified Code(s): L03.116 - Cellulitis of left lower limb Is this a current diagnosis for this admission?: Yes Plan: Overall improved. Patient presented with cellulitis to the left lower extremity with associated lymphangitis. Significantly improved; he now has slight erythema to the left lateral malleolus, intense erythema, edema, and fluctuant area over the medial malleolus. WBCs have trended down; 15.7 today. He has been afebrile greater than 48 hours. Blood cultures (10/07/2018; both sets) grew MRSA. Repeat blood cultures obtained today. Orthopedics has been consulted; appreciate Dr. Graham's evaluation recommendations. Continue IV vancomycin. (2) Bacteremia Is this a current diagnosis for this admission?: Yes Plan: Secondary to cellulitis. Original blood cultures (10/07/2018; 404 bottles) positive for MRSA. Repeat blood cultures (10/11/2018) pending. Patient was initially treated with IV vancomycin and cefepime; pain is discontinued today. Continue IV vancomycin. Infectious diseases consulted; appreciate assistance in determining appropriate antibiotic and length of therapy. Of note; patient does have a Pacemaker/AICD. (3) Diabetes mellitus type 2 in nonobese Is this a current diagnosis for this admission?: Yes Plan: Hemoglobin A1c 9.5%. Continue home dose metformin. Continue Lantus twice daily. Accu-Cheks before meals and at bedtime with sliding scale insulin. Consistent carb diet. (4) Hyponatremia Is this a current diagnosis for this admission?: Yes Plan: Overall improved; 136.2 today. IV fluids are discontinued. Continue to monitor with daily chemistries. (5) Leukocytosis Qualifiers: Leukocytosis type: bandemia Qualified Code(s): D72.825 - Bandemia Is this a current diagnosis for this admission?: Yes Plan: Secondary to #1 and 2. Cultures and antibiotics as above. (6) Lung cancer Qualifiers: Laterality: right Lung location: upper lobe of lung Qualified Code(s): C34.11 - Malignant neoplasm of upper lobe, right bronchus or lung Is this a current diagnosis for this admission?: Yes Plan: Dr. Cordero is consulted; management per his expertise. (7) Severe sepsis Is this a current diagnosis for this admission?: Yes Plan: Resolved. Sepsis was present on admission. Sepsis is secondary to cellulitis. Sepsis criteria hypotension with mean arterial pressure less than 70, acute thrombocytopenia with platelets less than 100,000, acute liver dysfunction with total bilirubin greater than 1.9. The patient has elevated lactic acid as well. Patient received aggressive IV fluid resuscitation. He did not require pressor support. Cultures and antibiotics as above. (8) Thrombocytopenia Is this a current diagnosis for this admission?: Yes Plan: Improved; PLT 40 today s/p 1 unit PLT. Heme/Onc consulted; defer to their expertise. - Time Time Spent with patient: 25-34 minutes Medications reviewed and adjusted accordingly: Yes Anticipated discharge: Home with Homehealth Within: Other - Repeat cultures negative at 72 hrs, PICC, and home infusion arra ngements made.
[2018-10-11] MEDS: ATORVASTATIN CALCIUM 80 MG TABLET PO SCH (21:37)
[2018-10-12 06:45] LABS: HEMATOCRIT 33.6 % (37.9-51.0); HEMOGLOBIN 11.3 g/dL (13.5-17.0); MEAN CORPUSCULAR HEMOGLOBIN 31.4 pg (27.0-33.4); MEAN CORPUSCULAR HGB CONC 33.7 g/dL (32.0-36.0); MEAN CORPUSCULAR VOLUME 93 fl (80-97); RED BLOOD COUNT 3.61 10^6/uL (4.35-5.55); RED CELL DISTRIBUTION WIDTH 15.5 % (11.5-14.0); WHITE BLOOD COUNT 17.4 10^3/uL (4.0-10.5)
[2018-10-12 07:13] LABS: PLATELET COUNT 12 10^3/uL (150-450)
[2018-10-12] MEDS: VANCOMYCIN HCL 750 MG in DEXTROSE 5%-WATER 250 ML IV SCH (07:16)
[2018-10-12] MEDS: PREDNISONE 10 MG TABLET PO SCH ×3 (07:16→22:59)
[2018-10-12] MEDS: METFORMIN HCL 500 MG TABLET PO SCH ×2 (07:22→16:27)
[2018-10-12 07:30] LABS: ANION GAP 6 (5-19); BLOOD UREA NITROGEN 23 mg/dL (7-20); CALCIUM 10.1 mg/dL (8.4-10.2); CARBON DIOXIDE 22 mmol/L (22-30); CHLORIDE 108 mmol/L (98-107); GLUCOSE 93 mg/dL (75-110); POTASSIUM 3.9 mmol/L (3.6-5.0)
--- NOTE | 2018-10-12 08:42 | Progress Note ---
Provider Note Provider Note: ID Consult Note Asked to review the pt's chart. Pt not seen or examined. Mr. Saenz is a 63 year old man with PMH including CHF s/p PPM/ICD placement and metastatic lung cancer on immunotherapy with pembrolizumab and subsequent development of hepatitis that required interruption of Keytruda and initiation of steroids and CellCept. He presented to [facility] from his oncologist's office for complaint of 2-3 days worsening of redness and pain over the L medial ankle associated with generalized weakness, fatigue, some nausea, an episode of diarrhea, and decreased appetite over several weeks. On presentation to the ED, he was noted to have fever, no cardiac murmur, diminished lung sounds, and er ythema to L ankle with swelling and tenderness to palpation and lymphangitic streaking up the L leg without calf tenderness but otherwise no remarkable skin findings. Initial labs revealed increased total bilirubin, elevated lactic acid, leukocytosis and thrombocytopenia. Blood cultures on admission 10/07 grew MRSA in 4/4 bottles. Vancomycin and cefepime ordered on admission were streamlined to vancomycin alone on 10/11. Imaging included plain films of the ankle that were read as showing severe arthritic changes, soft tissue swelling, and no acute fracture. TTE on 10/10 was technically limited but no thrombus, mild/moderate MR and TR, no MV vegetation visualized, trace AR, aortic sclerosis without stenosis, no AoV vegetation seen. To help evaluate cellulitis vs septic joint, Orthopedic Surgery consultation was sought; on 10/10 the ankle was noted to have erythema over the medial malleolus with minimal edema and no lymphangitis. On the basis of his low EF and decreased platelet count to 8k, the patient was assessed as a poor surgical candidate and a trial of IV antibiotics alone with continued observation of the LLE was recommended. Per most recent notes, the patient continued to have L medial ankle pain with erythema, edema and induration but these findings appeared to be overall improved. A fluctuant area over the medial malleolus was noted. Although the patient has had no continued fever, his repeat blood cultures on 10/11 preliminarily are reported as showing GPCs in clusters in one bottle of each set. Impression/Recommendations complicated MRSA bacteremia secondary to L ankle infection - Community acquired MRSA bacteremia in immunosuppressed host with cardiac implantable device; source septic arthritis of L ankle vs SSTI. No arthrocentesis attempted given low plt count. - With an area of fluctuance now noted and continued bacteremia, consider further imaging of the ankle to evaluate for presence of an abscess that may have evolved and would benefit from debridement. Antibioics alone may not be sufficient if there is an organized collection of pus. - TTE had some suboptimal images and, if patient is able to be evaluated with SANNA, this is the preferred study in the presence of a cardiac implantable device. 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
[2018-10-12] MEDS: INSULIN LISPRO 100 UNIT/ML 3 ML VIAL SUBCUT SCH ×4 (08:45→22:59)
--- NOTE | 2018-10-12 08:51 | PDOC PROGRESS REPORT ---
Subjective Progress Note for:: 10/12/18 Subjective:: No acute events overnight, patient seems clinically better, patient now has area of fluctuance along the medial malleolus, second set of blood cultures was positive. Reviewed ID notes. Reason For Visit: CELLULITIS LEFT LEG, HYPOTENSION, PRIMARY LUNG Physical Exam Vital Signs: Temp Pulse Resp BP Pulse Ox 98.6 F 92 20 113/61 91 L 10/12/18 04:13 10/12/18 04:13 10/12/18 04:13 10/12/18 04:13 10/12/18 04:13 Intake & Output 10/11/18 10/12/18 10/13/18 06:59 06:59 06:59 Intake Total 1559 2790 Output Total 580 1100 Balance 979 1690 Weight 62.3 kg 66.2 kg General appearance: PRESENT: no acute distress, well-developed, well-nourished Head exam: PRESENT: atraumatic, normocephalic Eye exam: PRESENT: conjunctiva pink, EOMI, PERRLA. ABSENT: scleral icterus Ear exam: PRESENT: normal external ear exam Mouth exam: PRESENT: moist, tongue midline Neck exam: ABSENT: carotid bruit, JVD, lymphadenopathy, thyromegaly Respiratory exam: PRESENT: clear to auscultation corey. ABSENT: rales, rhonchi, wheezes Cardiovascular exam: PRESENT: RRR. ABSENT: diastolic murmur, rubs, systolic murmur Pulses: PRESENT: normal dorsalis pedis pul Vascular exam: PRESENT: normal capillary refill GI/Abdominal exam: PRESENT: normal bowel sounds, soft. ABSENT: distended, guarding, mass, organolmegaly, rebound, tenderness Rectal exam: PRESENT: deferred Extremities exam: PRESENT: full ROM. ABSENT: calf tenderness, clubbing, pedal edema Neurological exam: PRESENT: alert, awake, oriented to person, oriented to place, oriented to time, oriented to situation, CN II-XII grossly intact. ABSENT: motor sensory deficit Psychiatric exam: PRESENT: appropriate affect, normal mood. ABSENT: homicidal ideation, suicidal ideation Skin exam: PRESENT: dry, intact, warm. ABSENT: cyanosis, rash Results Laboratory Results: 10/12/18 06:20 10/12/18 06:20 10/11/18 10/12/18 10/12/18 09:17 04:38 04:38 WBC Cancelled RBC Cancelled Hgb Cancelled Hct Cancelled MCV Cancelled MCH Cancelled MCHC Cancelled RDW Cancelled Plt Count Cancelled Sodium Cancelled Potassium Cancelled Chloride Cancelled Carbon Dioxide Cancelled Anion Gap Cancelled BUN Cancelled Creatinine Cancelled Est GFR ( Amer) Cancelled Est GFR (Non-Af Amer) Cancelled Glucose Cancelled Lactic Acid 1.3 Calcium Cancelled 10/12/18 10/12/18 06:20 06:20 WBC 17.4 H RBC 3.61 L Hgb 11.3 L Hct 33.6 L MCV 93 MCH 31.4 MCHC 33.7 RDW 15.5 H Plt Count 12 L* D Sodium 136.1 L Potassium 3.9 Chloride 108 H Carbon Dioxide 22 Anion Gap 6 BUN 23 H Creatinine 0.64 Est GFR ( Amer) > 60 Est GFR (Non-Af Amer) Glucose 93 Lactic Acid Calcium 10.1 Impressions: Ankle X-Ray 10/07/18 15:42 IMPRESSION: 1. Moderate to moderate severe arthritic changes at the left ankle maybe on the basis of inflammatory arthrititides. Soft tissue swelling. Correlation suggested. 2. No acute fracture. Chest X-Ray 10/07/18 15:42 IMPRESSION: 1. Significant interval increase in size of the right suprahilar--right upper lobe mass since the prior study dated 02/04/2018. Further evaluation with CT chest with IV contrast suggested. 2. Left-sided cardiac pacemaker, new finding since the prior examination. Abdomen/Pelvis CT 10/11/18 08:51 IMPRESSION: 1. Small bilateral pleural effusions. 2. Free fluid surrounding the liver spleen an within the pelvis. 3. No evidence of metastatic disease in the abdomen or pelvis. Assessment & Plan - Diagnosis (1) Cellulitis Qualifiers: Site of cellulitis: extremity Site of cellulitis of extremity: lower extr emity Laterality: left Qualified Code(s): L03.116 - Cellulitis of left lower limb Is this a current diagnosis for this admission?: Yes Plan: With sepsis, bacteremia, continue with current antibiotics per recommendation from infectious disease. They did mention SANNA, but would leave this up to ID and hospitalist team on whether this is needed. (2) Acute hepatic failure Qualifiers: Hepatic coma status: without hepatic coma Qualified Code(s): K72.00 - Acute and subacute hepatic failure without coma Is this a current diagnosis for this admission?: Yes Plan: Need to repeat CMP, will have hospitalist team order. (3) Thrombocytopenia Is this a current diagnosis for this admission?: Yes Plan: Platelet count is 12, not actively bleeding, will review platelet count tomorrow and probably will need another transfusion. I believe this is still DIC secondary to acute infection.
[2018-10-12] MEDS: MYCOPHENOLATE MOFETIL 250 MG CAPSULE PO SCH ×2 (10:03→23:01)
[2018-10-12] MEDS: ASPIRIN 81 MG TABLET, ENT COATED PO SCH (10:03)
[2018-10-12] MEDS: FAMOTIDINE 20 MG TABLET PO SCH ×2 (10:04→22:59)
[2018-10-12] MEDS: DOCUSATE SODIUM 100 MG CAPSULE PO SCH ×2 (10:04→17:00)
[2018-10-12] MEDS: ISOSORBIDE MONONITRATE 20 MG TABLET PO SCH ×2 (10:05→23:03)
[2018-10-12] MEDS: OMEGA-3 ACID ETHYL ESTERS 1 GM CAPSULE PO SCH (10:05)
[2018-10-12] MEDS: MULTIVITAMIN TABLET PO SCH (10:05)
[2018-10-12] MEDS: LISINOPRIL 5 MG TABLET PO SCH (10:06)
[2018-10-12] MEDS: CLOPIDOGREL BISULFATE 75 MG TABLET PO SCH (10:06)
[2018-10-12] MEDS: METOPROLOL TARTRATE 25 MG TABLET PO SCH ×2 (10:07→22:56)
[2018-10-12] MEDS: INSULIN GLARGINE,HUM.REC.ANLOG 1,000 UNIT/10 ML VIAL SUBCUT SCH ×2 (10:08→23:02)
[2018-10-12] MEDS: NICOTINE 14 MG/24 HR PATCH.TD24 TD SCH (10:09)
[2018-10-12] MEDS: VANCOMYCIN HCL 1,000 MG in DEXTROSE 5%-WATER 250 ML IV SCH (17:47)
--- NOTE | 2018-10-12 17:52 | RADIOLOGY REPORT (SQ) ---
EXAM DESCRIPTION: CT LT LOWER EXTREMITY WITHOUT COMPLETED DATE/TIME: 10/12/2018 5:29 pm REASON FOR STUDY: cellulitis, ? septic arthritis v osteo COMPARISON: None. EXAM PARAMETERS: TECHNIQUE:Axial imaging performed through the left ankle with reformatted coronal a nd sagittal imaging windowed for bone and soft tissues. Images saved to PACS. 3D IMAGING: Were 3D images as MIP, SSD, or volume rendering performed at the work station? No All CT scanners at this facility use dose modulation, iterative reconstruction, and/or weight based d osing when appropriate to reduce radiation dose to as low as reasonably achievable (ALARA). [facility]: Dose Right [facility]: [employer] [facility]: Dose Right [facility]: Teradose 4D [facility]: [employer] RADIATION DOSE: CT Rad equipment meets quality standard of care and radiation dose reduction techniqu es were employed. CTDIvol: 4.1 mGy. DLP: 90 mGy-cm. mGy. LIMITATIONS: None. FINDINGS: SOFT TISSUES: Marked soft tissue swelling on the medial aspect of the joint. Cannot exclu de fluid collection. There are some small bubbles of air within the medial soft tissues. BONES: Marked degenerative joint changes are seen in the tibiotalar joint with multiple subchondral c ysts. MINERALIZATION: Normal. OTHER: No other significant finding. IMPRESSION: 1. Cannot exclude an abscess in the medial aspect of the left ankle. There is marked s oft tissue swelling with possible small fluid collection with some bubbles of air. 2. Extensive degenerative joint changes are seen in the tibiotalar joint as described. The findings most suggests the presence of subchondral cysts. Cannot entirely exclude osteomyelitis. TECHNICAL DOCUMENTATION: JOB ID: [id number] [facility] [id number]: Final reports with documentation of one or more dose reduction techniques (e.g., Automate d exposure control, adjustment of the mA and/or kV according to patient size, use of iterative recons truction technique) 2010 [employer]- All Rights Reserved Reading location - IP/workstation name: [email or web address]
--- NOTE | 2018-10-12 18:07 | RADIOLOGY REPORT (SQ) ---
EXAM DESCRIPTION: CT CHEST WITH COMPLETED DATE/TIME: 10/12/2018 5:29 pm REASON FOR STUDY: worsening of lung cancer COMPARISON: 07/04/2018 TECHNIQUE: CT scan of the chest performed using helical scanning technique with dynamic intravenous contrast injection. Images reviewed with lung, soft tissue and bone windows. Reconstructed coronal and sagittal MPR and MIP images reviewed. All images stored on PACS. All CT scanners at this facility use dose modulation, iterative reconstruction, and/or weight based d osing when appropriate to reduce radiation dose to as low as reasonably achievable (ALARA). [facility]: Dose Right [facility]: CareDose [facility]: Dose Right [facility]: Teradose 4D [facility]: [employer] CONTRAST TYPE AND DOSE: contrast/concentration: Isovue 350.00 mg/ml; Total Contrast Delivered: 80.0 ml; Total Saline Delivered: 31.2 ml RENAL FUNCTION: Not recorded. Refer to mechatronics technologist's notes. RADIATION DOSE: CT Rad equipment meets quality standard of care and radiation dose reduction techniq ues were employed. CTDIvol: 6.7 mGy. DLP: 278 mGy-cm. . LIMITATIONS: None. FINDINGS: LUNGS AND PLEURA: 6 cm partially cavitary mass in the right upper lobe. This is not signi ficantly larger than on the prior study. There are multiple poorly defined peripheral ground-glass o pacifications bilaterally. Bilateral small to moderate pleural effusions. Subsegmental atelectasis in the lower lobes. HILAR AND MEDIASTINAL STRUCTURES: A precarinal node is slightly larger than on the prior study. HEART AND VASCULAR STRUCTURES: No aneurysm or dissection. There is a pericardial effusion that measu res about 11 mm in depth anteriorly. HARDWARE: Pacemaker/defibrillator. UPPER ABDOMEN: There is a small amount of ascites. THYROID AND OTHER SOFT TISSUES: No masses. No adenopathy. BONES: No significant finding. OTHER: No other significant finding. IMPRESSION: Worsening neoplasm in the chest with a 6 cm partially cavitary mass in the right upper l obe. There are multiple small peripheral ill-defined ground-glass nodules bilaterally concerning for metastases. There is a pericardial effusion. There is a small amount of ascites. TECHNICAL DOCUMENTATION: JOB ID: [id number] Quality ID # [id number]: Final reports with documentation of one or more dose reduction techniques (e.g., Au tomated exposure control, adjustment of the mA and/or kV according to patient size, use of iterative reconstruction technique) 2010 [employer]- All Rights Reserved Reading location - IP/workstation name: [email or web address]
--- NOTE | 2018-10-12 19:44 | PDOC PROGRESS REPORT ---
Subjective Progress Note for:: 10/12/18 Subjective:: The patient is a 63-year-old male with a past medical history significant for active right lung cancer (currently under treatment by Dr. 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 The patient was seen on afternoon rounds. He was found resting in bed comfortably on room air. He does continue to have Left medial ankle pain with erythema, edema, and induration; although slightly improved today. He denies fever, chills, chest pain, palpitations, dyspnea, abdominal pain, nausea vomiting or diarrhea. He had no other questions or concerns at this time. No concerns per nursing. Reason For Visit: CELLULITIS LEFT LEG, HYPOTENSION, PRIMARY LUNG Physical Exam Vital Signs: Temp Pulse Resp BP Pulse Ox 98.7 F 118 H 16 109/63 97 10/12/18 16:50 10/12/18 16:50 10/12/18 16:50 10/12/18 16:50 10/12/18 16:50 Intake & Output 10/11/18 10/12/18 10/13/18 06:59 06:59 06:59 Intake Total 1559 2790 1390 Output Total 580 1100 450 Balance 979 1690 940 Weight 62.3 kg 66.2 kg General appearance: PRESENT: no acute distress, well-developed, well-nourished Head exam: PRESENT: atraumatic, normocephalic Eye exam: PRESENT: conjunctiva pink, EOMI, PERRLA. ABSENT: scleral icterus Ear exam: PRESENT: normal external ear exam Mouth exam: PRESENT: moist, tongue midline Neck exam: ABSENT: carotid bruit, JVD, lymphadenopathy, thyromegaly Respiratory exam: PRESENT: clear to auscultation corey, symmetrical, unlabored. ABSENT: rales, rhonchi, wheezes Cardiovascular exam: PRESENT: RRR, +S1, +S2. ABSENT: diastolic murmur, rubs, systolic murmur Pulses: PRESENT: normal dorsalis pedis pul Vascular exam: PRESENT: normal capillary refill GI/Abdominal exam: PRESENT: normal bowel sounds, soft. ABSENT: distended, guarding, mass, organolmegaly, rebound, tenderness Rectal exam: PRESENT: deferred Extremities exam: PRESENT: full ROM. ABSENT: calf tenderness, clubbing, pedal edema Neurological exam: PRESENT: alert, awake, oriented to person, oriented to place, oriented to time, oriented to situation, CN II-XII grossly intact. ABSENT: motor sensory deficit Psychiatric exam: PRESENT: appropriate affect, normal mood. ABSENT: homicidal i deation, suicidal ideation Skin exam: PRESENT: dry, warm, other - Edema to lateral and medial aspects of left ankle; significantly worse on medial aspect with associated edema, induration. Improved from yesterday. ABSENT: cyanosis, rash Results Laboratory Results: 10/12/18 06:20 10/12/18 06:20 10/12/18 10/12/18 10/12/18 04:38 04:38 06:20 WBC Cancelled 17.4 H RBC Cancelled 3.61 L Hgb Cancelled 11.3 L Hct Cancelled 33.6 L MCV Cancelled 93 MCH Cancelled 31.4 MCHC Cancelled 33.7 RDW Cancelled 15.5 H Plt Count Cancelled 12 L* D Sodium Cancelled Potassium Cancelled Chloride Cancelled Carbon Dioxide Cancelled Anion Gap Cancelled BUN Cancelled Creatinine Cancelled Est GFR ( Amer) Cancelled Est GFR (Non-Af Amer) Cancelled Glucose Cancelled Calcium Cancelled 10/12/18 06:20 WBC RBC Hgb Hct MCV MCH MCHC RDW Plt Count Sodium 136.1 L Potassium 3.9 Chloride 108 H Carbon Dioxide 22 Anion Gap 6 BUN 23 H Creatinine 0.64 Est GFR ( Amer) > 60 Est GFR (Non-Af Amer) Glucose 93 Calcium 10.1 Impressions: Ankle X-Ray 10/07/18 15:42 IMPRESSION: 1. Moderate to moderate severe arthritic changes at the left ankle maybe on the basis of inflammatory arthrititides. Soft tissue swelling. Correlation suggested. 2. No acute fracture. Chest X-Ray 10/07/18 15:42 IMPRESSION: 1. Significant interval increase in size of the right suprahilar--right upper lobe mass since the prior study dated 02/04/2018. Further evaluation with CT chest with IV contrast suggested. 2. Left-sided cardiac pacemaker, new finding since the prior examination. Abdomen/Pelvis CT 10/11/18 08:51 IMPRESSION: 1. Small bilateral pleural effusions. 2. Free fluid surrounding the liver spleen an within the pelvis. 3. No evidence of metastatic disease in the abdomen or pelvis. Chest CT 10/12/18 00:00 IMPRESSION: Worsening neoplasm in the chest with a 6 cm partially cavitary mass in the right upper lobe. There are multiple small peripheral ill-defined ground-glass nodules bilaterally concerning for metastases. There is a peric ardial effusion. There is a small amount of ascites. Lower Extremity CT 10/12/18 00:00 IMPRESSION: 1. Cannot exclude an abscess in the medial aspect of the left ankle. There is marked soft tissue swelling with possible small fluid collection with some bubbles of air. 2. Extensive degenerative joint changes are seen in the tibiotalar joint as described. The findings most suggests the presence of subchondral cysts. Cannot entirely exclude osteomyelitis. Assessment and Plan - Diagnosis (1) Cellulitis Qualifiers: Site of cellulitis: extremity Site of cellulitis of extremity: lower extremity Laterality: left Qualified Code(s): L03.116 - Cellulitis of left lower limb Is this a current diagnosis for this admission?: Yes Plan: Overall improved. Patient presented with cellulitis to the left lower extremity with associated lymphangitis. Significantly improved; he now has slight erythema to the left lateral malleolus, intense erythema, edema, and fluctuant area over the medial malleolus. WBCs trending up; 17 today. He has been afebrile greater than 48 hours and is clinically improved. Blood cultures (10/07/2018; both sets) grew MRSA. Repeat blood cultures (10/11/18) w/ Gm positive cocci both sets. CT lower extremity shows possible abscess formation w/ air bubbles; can not exclude osteomyelitis. Orthopedics has been consulted; appreciate Dr. Graham's evaluation recommendations. Will discuss w/ ortho again tomorrow. Continue IV vancomycin. (2) Bacteremia Is this a current diagnosis for this admission?: Yes Plan: Secondary to cellulitis. Original blood cultures (10/07/2018; 4 of 4 bottles) positive for MRSA. Repeat blood cultures (10/11/2018) show Gm positive cocci in both sets. Patient was initially treated with IV vancomycin and cefepime; pain is d iscontinued today. Continue IV vancomycin. Infectious diseases consulted; Recommends further evaluation for osteomyelitis and SANNA to rule out endocarditis. Continue to repeat blood cultures q. 20 every 48 hours until clear. Continue IV vancomycin. Duration of treatment should be a minimum of 4 weeks but could be longer depending upon results of osteomyelitis evaluation and SANNA. (3) Diabetes mellitus type 2 in nonobese Is this a current diagnosis for this admission?: Yes Plan: Hemoglobin A1c 9.5%. Continue home dose metformin. Continue Lantus twice daily. Accu-Cheks before meals and at bedtime with sliding scale insulin. Consistent carb diet. (4) Hyponatremia Is this a current diagnosis for this admission?: Yes Plan: Overall improved; 136.1 today. IV fluids are discontinued. Continue to monitor with daily chemistries. (5) Leukocytosis Qualifiers: Leukocytosis type: bandemia Qualified Code(s): D72.825 - Bandemia Is this a current diagnosis for this admission?: Yes Plan: Secondary to #1 and 2. Cultures and antibiotics as above. (6) Lung cancer Qualifiers: Laterality: right Lung location: upper lobe of lung Qualified Code(s): C34.11 - Malignant neoplasm of upper lobe, right bronchus or lung Is this a current diagnosis for this admission?: Yes Plan: Dr. Cordero is consulted; management per his expertise. (7) Thrombocytopenia Is this a current diagnosis for this admission?: Yes Plan: PLT 12 today s/p 1 unit PLT. Heme/Onc consulted; defer to their expertise. (8) Severe sepsis Is this a current diagnosis for this admission?: Yes Plan: Resolved. Sepsis was present on admission. Sepsis is secondary to cellulitis. Sepsis criteria hypotension with mean arterial pressure less than 70, acute thrombocytopenia with platelets less than 100,000, acute liver dysfunction with total bilirubin greater than 1.9. The patient has elevated lactic acid as well. Patient received aggressive IV fluid resuscitation. He did not require pressor support. Cultures and antibiotics as above. - Time Time Spent with patient: 25-34 minutes Medications reviewed and adjusted accordingly: Yes Anticipated discharge: Home with Homehealth
[2018-10-12] MEDS: ATORVASTATIN CALCIUM 80 MG TABLET PO SCH (22:59)
[2018-10-13] MEDS: VANCOMYCIN HCL 1,000 MG in DEXTROSE 5%-WATER 250 ML IV SCH ×2 (06:07→19:10)
[2018-10-13] MEDS: PREDNISONE 10 MG TABLET PO SCH ×2 (06:07→14:02)
--- NOTE | 2018-10-13 06:16 | PDOC PROGRESS REPORT ---
Subjective Progress Note for:: 10/13/18 Reason For Visit: CELLULITIS LEFT LEG, HYPOTENSION, PRIMARY LUNG 63-year-old white male with among other problems he has positive blood cultures, radiographic changes about his left ankle, some fluctuance on physical examination, and his CT scan being indeterminant on her underlying osteomyelitis. Physical Exam Vital Signs: Temp Pulse Resp BP Pulse Ox 37.1 C 95 20 94/56 L 92 10/13/18 03:23 10/13/18 03:23 10/13/18 03:23 10/13/18 03:23 10/13/18 03:23 Intake & Output 10/11/18 10/12/18 10/13/18 06:59 06:59 06:59 Intake Total 1559 2790 1740 Output Total 580 1100 575 Balance 979 1690 1165 Weight 62.3 kg 66.2 kg General appearance: PRESENT: no acute distress, mild distress Head exam: PRESENT: normocephalic Respiratory exam: PRESENT: unlabored Cardiovascular exam: PRESENT: RRR Vascular exam: PRESENT: normal capillary refill GI/Abdominal exam: PRESENT: soft Rectal exam: PRESENT: deferred Extremities exam: PRESENT: other - Left medial malleolus with some discoloration and fluctuance. There is no active drainage at this point. Psychiatric exam: PRESENT: appropriate affect, normal mood. ABSENT: homicidal ideation, suicidal ideation Results Laboratory Results: 10/12/18 06:20 10/12/18 06:20 10/12/18 10/12/18 06:20 06:20 WBC 17.4 H RBC 3.61 L Hgb 11.3 L Hct 33.6 L MCV 93 MCH 31.4 MCHC 33.7 RDW 15.5 H Plt Count 12 L* D Sodium 136.1 L Potassium 3.9 Chloride 108 H Carbon Dioxide 22 Anion Gap 6 BUN 23 H Creatinine 0.64 Est GFR ( Amer) > 60 Glucose 93 Calcium 10.1 Impressions: Ankle X-Ray 10/07/18 15:42 IMPRESSION: 1. Moderate to moderate severe arthritic changes at the left ankle maybe on the basis of inflammatory arthrititides. Soft tissue swelling. Correlation suggested. 2. No acute fracture. Chest X-Ray 10/07/18 15:42 IMPRESSION: 1. Significant interval increase in size of the right suprahilar--right upper lobe mass since the prior study dated 02/04/2018. Further evaluation with CT chest with IV contrast suggested. 2. Left-sided cardiac pacemaker, new finding since the prior examination. Abdomen/Pelvis CT 10/11/18 08:51 IMPRESSION: 1. Small bilateral pleural effusions. 2. Free fluid surrounding the liver spleen an within the pelvis. 3. No evidence of metastatic disease in the abdomen or pelvis. Chest CT 10/12/18 00:00 IMPRESSION: Worsening neoplasm in the chest with a 6 cm partially cavitary mass in the right upper lobe. There are multiple small peripheral ill-defined ground-glass nodules bilaterally concerning for metastases. There is a pericardial effusion. There is a small amount of ascites. Lower Extremity CT 10/12/18 00:00 IMPRESSION: 1. Cannot exclude an abscess in the medial aspect of the left ankle. There is marked soft tissue swelling with possible small fluid collection with some bubbles of air. 2. Extensive degenerative joint changes are seen in the tibiotalar joint as described. The findings most suggests the presence of subchondral cysts. Cannot entirely exclude osteomyelitis. Status: Imported from PACS Assessment & Plan - Diagnosis (1) Cellulitis Qualifiers: Site of cellulitis: extremity Site of cellulitis of extremity: lower extremity Laterality: left Qualified Code(s): L03.116 - Cellulitis of left lower limb Is this a current diagnosis for this admission?: Yes Plan: The 63-year-old white male with ongoing left ankle issues that probably represent chronic degenerative changes as opposed to osteomyelitis. However with the recent fluid collection medial malleolus this may need to be reevaluated. At this point the patient continues to have a platelet count in the low teens and is not a surgical candidate. I think continued administration of antibiotics and observation are appropriate. - Time Time Spent with patient: 15-24 minutes Anticipated discharge: Other Within: Other
[2018-10-13 07:01] LABS: ALBUMIN 1.9 g/dL (3.5-5.0); ALKALINE PHOSPHATASE 223 U/L (38-126); ASPARTATE AMINO TRANSFERASE 57 U/L (17-59); BILIRUBIN,TOTAL 3.9 mg/dL (0.2-1.3); BLOOD UREA NITROGEN 26 mg/dL (7-20); CARBON DIOXIDE 26 mmol/L (22-30); CHLORIDE 106 mmol/L (98-107); GLUCOSE 113 mg/dL (75-110); POTASSIUM 3.4 mmol/L (3.6-5.0); TOTAL PROTEIN 3.9 g/dL (6.3-8.2)
[2018-10-13 07:09] LABS: ANION GAP 4 (5-19)
[2018-10-13 07:12] LABS: HEMATOCRIT 30.5 % (37.9-51.0); HEMOGLOBIN 10.2 g/dL (13.5-17.0); MEAN CORPUSCULAR HEMOGLOBIN 30.9 pg (27.0-33.4); MEAN CORPUSCULAR HGB CONC 33.5 g/dL (32.0-36.0); MEAN CORPUSCULAR VOLUME 92 fl (80-97); WHITE BLOOD COUNT 18.6 10^3/uL (4.0-10.5)
[2018-10-13 07:16] LABS: PLATELET COUNT 8 10^3/uL (150-450)
[2018-10-13 07:22] LABS: ABSOLUTE LYMPHOCYTES# (MANUAL) 0.2 10^3/uL (0.5-4.7); ABSOLUTE MONOCYTES # (MANUAL) 0.6 10^3/uL (0.1-1.4); BASOPHILS % (MANUAL) 0 % (0-2); EOSINOPHILS % (MANUAL) 0 % (0-6); LYMPHOCYTES % (MANUAL) 1 % (13-45); MONOCYTES % (MANUAL) 3 % (3-13); SEGMENTED NEUTROPHILS % (MAN) 96 % (42-78); TOTAL CELLS COUNTED 100
[2018-10-13 07:26] LABS: ANISOCYTOSIS SLIGHT; OVALOCYTES 1+; PLATELET COMMENT DECREASED
--- NOTE | 2018-10-13 08:58 | PDOC PROGRESS REPORT ---
Subjective Progress Note for:: 10/13/18 Subjective:: Cultures pending this am, had long discussion w/ pt, medical team, spent 45 min in discussion and coordination of care. Issues are that there is fluid collection around medial malleolus. D/w dr george who feels that problems are that plt ct needs to be >100 to do a major joint clean out. Also he notes the joint itself is destroyed and if osteo is present and we are able to dx that intraop, the only choice would be amputation. He was unsure if pt was ready for that. I discussed w/ pt and and he unsure also. Therefore, recommended waiting for this 3rd set and to see if the area will drain on its own which is likely per ortho. Unfortunately, the lung mass in increased in size also. Discussed that w/ pt Reason For Visit: CELLULITIS LEFT LEG, HYPOTENSION, PRIMARY LUNG Physical Exam Vital Signs: Temp Pulse Resp BP Pulse Ox 98.7 F 95 20 94/56 L 92 10/13/18 03:23 10/13/18 03:23 10/13/18 03:23 10/13/18 03:23 10/13/18 03:23 Intake & Output 10/12/18 10/13/18 10/14/18 06:59 06:59 06:59 Intake Total 2790 1840 Output Total 1100 825 Balance 1690 1015 Weight 66.2 kg 66.2 kg General appearance: PRESENT: no acute distress, well-developed, well-nourished Head exam: PRESENT: atraumatic, normocephalic Eye exam: PRESENT: conjunctiva pink, EOMI, PERRLA. ABSENT: scleral icterus Ear exam: PRESENT: normal external ear exam Mouth exam: PRESENT: moist, tongue midline Neck exam: ABSENT: carotid bruit, JVD, lymphadenopathy, thyromegaly Respiratory exam: PRESENT: clear to auscultation corey. ABSENT: rales, rhonchi, wheezes Cardiovascular exam: PRESENT: RRR. ABSENT: diastolic murmur, rubs, systolic murmur Pulses: PRESENT: normal dorsalis pedis pul Vascular exam: PRESENT: normal capillary refill GI/Abdominal exam: PRESENT: normal bowel sounds, soft. ABSENT: distended, guarding, mass, organolmegaly, rebound, tenderness Rectal exam: PRESENT: deferred Extremities exam: PRESENT: full ROM. ABSENT: calf tenderness, clubbing, pedal edema Neurological exam: PRESENT: alert, awake, oriented to person, oriented to place, oriented to time, oriented to situation, CN II-XII grossly intact. ABSENT: motor sensory deficit Psychiatric exam: PRESENT: appropriate affect, normal mood. ABSENT: homicidal ideation, suicidal ideation Skin exam: PRESENT: dry, intact, warm. ABSENT: cyanosis, rash Results Laboratory Results: 10/13/18 06:03 10/13/18 06:03 10/13/18 10/13/18 06:03 06:03 WBC 18.6 H RBC 3.30 L Hgb 10.2 L Hct 30.5 L MCV 92 MCH 30.9 MCHC 33.5 RDW 15.0 H Plt Count 8 L* Seg Neutrophils % Not Reportable Sodium 136.4 L Potassium 3.4 L Chloride 106 Carbon Dioxide 26 Anion Gap 4 L BUN 26 H Creatinine 0.73 Est GFR ( Amer) > 60 Glucose 113 H Calcium 10.0 Total Bilirubin 3.9 H AST 57 Alkaline Phosphatase 223 H Total Protein 3.9 L Albumin 1.9 L Impressions: Ankle X-Ray 10/07/18 15:42 IMPRESSION: 1. Moderate to moderate severe arthritic changes at the left ankle maybe on the basis of inflammatory arthrititides. Soft tissue swelling. Correlation suggested. 2. No acute fracture. Chest X-Ray 10/07/18 15:42 IMPRESSION: 1. Significant interval increase in size of the right suprahilar--right upper lobe mass since the prior study dated 02/04/2018. Further evaluation with CT chest with IV contrast suggested. 2. Left-sided cardiac pacemaker, new finding since the prior examination. Abdomen/Pelvis CT 10/11/18 08:51 IMPRESSION: 1. Small bilateral pleural effusions. 2. Free fluid surrounding the liver spleen an within the pelvis. 3. No evidence of metastatic disease in the abdomen or pelvis. Chest CT 10/12/18 00:00 IMPRESSION: Worsening neoplasm in the chest with a 6 cm partially cavitary mass in the right upper lobe. There are multiple small peripheral ill-defined ground-glass nodules bilaterally concerning for metastases. There is a pericardial effusion. There is a small amount of ascites. Lower Extremity CT 10/12/18 00:00 IMPRESSION: 1. Cannot exclude an abscess in the medial aspect of the left ankle. There is marked soft tissue swelling with possible small fluid collecti on with some bubbles of air. 2. Extensive degenerative joint changes are seen in the tibiotalar joint as described. The findings most suggests the presence of subchondral cysts. Cannot entirely exclude osteomyelitis. Assessment & Plan - Diagnosis (1) Cellulitis Qualifiers: Site of cellulitis: extremity Site of cellulitis of extremity: lower extremity Laterality: left Qualified Code(s): L03.116 - Cellulitis of left lower limb Is this a current diagnosis for this admission?: Yes Plan: Cont atbx await cultures, issues as above (2) Acute hepatic failure Qualifiers: Hepatic coma status: without hepatic coma Qualified Code(s): K72.00 - Acute and subacute hepatic failure without coma Is this a current diagnosis for this admission?: Yes Plan: improved, will follow (3) Thrombocytopenia Is this a current diagnosis for this admission?: Yes Plan: Give 1 unit plt to keep >10 for now, if surg intervention ultimately needed we can transfuse up to needed plt ct - Time Time Spent with patient: 35 or more minutes
[2018-10-13] MEDS: METFORMIN HCL 500 MG TABLET PO SCH ×2 (10:13→19:06)
[2018-10-13] MEDS: INSULIN GLARGINE,HUM.REC.ANLOG 1,000 UNIT/10 ML VIAL SUBCUT SCH ×2 (10:19→22:25)
[2018-10-13] MEDS: INSULIN LISPRO 100 UNIT/ML 3 ML VIAL SUBCUT SCH ×4 (10:20→22:24)
[2018-10-13] MEDS: NICOTINE 14 MG/24 HR PATCH.TD24 TD SCH (10:20)
[2018-10-13] MEDS: MYCOPHENOLATE MOFETIL 250 MG CAPSULE PO SCH ×2 (10:21→22:29)
[2018-10-13] MEDS: ISOSORBIDE MONONITRATE 20 MG TABLET PO SCH ×2 (10:21→19:09)
[2018-10-13] MEDS: LISINOPRIL 5 MG TABLET PO SCH (10:21)
[2018-10-13] MEDS: DOCUSATE SODIUM 100 MG CAPSULE PO SCH ×2 (10:21→19:10)
[2018-10-13] MEDS: OMEGA-3 ACID ETHYL ESTERS 1 GM CAPSULE PO SCH (10:21)
[2018-10-13] MEDS: FAMOTIDINE 20 MG TABLET PO SCH ×2 (10:22→22:29)
[2018-10-13] MEDS: METOPROLOL TARTRATE 25 MG TABLET PO SCH ×2 (10:22→22:31)
[2018-10-13] MEDS: MULTIVITAMIN TABLET PO SCH (10:23)
--- NOTE | 2018-10-13 16:48 | XCELERA REPORT ---
[address] [address] Upper Extremity Venous Evaluation Name: JEVON MEDEROS Age: 63 yrs Gender: Male : 1955 Patient Status: Inpatient Patient Location: [address] [place], [place] [id number] Study Date: 10/13/2018 11:14 AM Procedure: Unilateral duplex scan of the left upper extremity veins was performed, including responses to compression and other maneuvers. Reason For Study: LUE EDEMA Ordering Physician: FELICITY PERDOMO Performed By: Ramiro Chery Left Sided Venous Evaluation Normal vessel filling wall to wall, compression and augmentation as well as Colour flow down to the forearm veins. Interpretation Summary No duplex evidence of DVT or obstruction in the left upper extremity. : FELICITY PERDOMO > Conrad Davis
--- NOTE | 2018-10-13 18:50 | PDOC TRANSFER SUMMARY ---
General Admission Date/PCP: 10/07/18 17:29 Admission Date: 10/07/18 Accepting Facility: [facility] Resuscitation Status: Full Code - Transfer Diagnosis (1) Cellulitis Is this a current diagnosis for this admission?: Yes Diagnosis Summary: Overall improved. Patient presented with cellulitis to the left lower extremity with associated lymphangitis. Significantly improved; he now has slight erythema to the left lateral malleolus, intense erythema, edema, and fluctuant area over the medial malleolus. WBCs continue trending up; 18.6 today. Remains afebrile Blood cultures (10/07/2018; both sets) grew MRSA. Repeat blood cultures (10/11/18) w/ Gm positive cocci both sets. Repeat blood cultures (10/13/18) pending. CT lower extremity shows possible abscess formation w/ air bubbles; can not exclude osteomyelitis. Orthopedics has been consulted; appreciate Dr. Graham's evaluation recommendations. Advises that joint washout would require platelets > 100. Ortho is concerned about intraoperative diagnosis of osteomyelitis that the patient may not yet be prepared for; patient would benefit from MRI imaging. I did confirm with [email or web address] that the patient has a complete MRI conditional system; AICD would need to be programmed to "SureScan" prior to MRI imaging. Unfortunately, this facility is not capable of the monitoring required to do MRI studies in patients with pacemakers/AICD's. Discussed with heme/onc; advises that the patient would benefit from a transfer to a tertiary care facility where MRI equipment is available with orthopedic, heme/onc, and infectious disease specialties on hand. Continue IV vancomycin. Spoke with Bharathi Burch at [facility] who has graciously agreed to accept this patient for further care. (2) Bacteremia Is this a current diagnosis for this admission?: Yes Diagnosis Summary: Secondary to cellulitis and possible osteomyelitis. Original blood cultures (10/07/2018; 4 of 4 bottles) positive for MRSA. Repeat blood cultures (10/11/2018) show Gm positive cocci in both sets. Repeat blood cultures (10/13/16) pending. Patient was initially treated with IV vancomycin and cefepime; pain is discontinued today. Continue IV vancomycin. Infectious diseases consulted; Recommends further evaluation for osteomyelitis and SANNA to rule out endocarditis. Continue to repeat blood cultures q. 20 every 48 hours until clear. Continue IV vancomycin. Duration of treatment should be a minimum of 4 weeks but could be longer depending upon results of osteomyelitis evaluation and SANNA. Spoke with Dr. Joyner, Infectious Disease, today. Recommends continued IV Vancomycin and supports transfer to tertiary facility where joint can be more formally evaluated. As the patient CT imaging is questionable for osteomyelitis, he remains bactere lana despite 6 days of IV antibiotics, and WBCs are trending up [facility] was contacted for transfer to their facility where the appropriate MRI equipment is available/compatible with the patient's pacemaker/AICD. He has been accepted to their facility; awaiting room assignment. (3) Diabetes mellitus type 2 in nonobese Is this a current diagnosis for this admission?: Yes Diagnosis Summary: Hemoglobin A1c 9.5%. Continue home dose metformin. Continue Lantus twice daily. Accu-Cheks before meals and at bedtime with sliding scale insulin. Consistent carb diet. (4) Hyponatremia Is this a current diagnosis for this admission?: Yes Diagnosis Summary: Overall improved; 136.4 today. IV fluids are discontinued. Continue to monitor with daily chemistries. (5) Leukocytosis Is this a current diagnosis for this admission?: Yes Diagnosis Summary: Secondary to #1 and 2. Trending up. Cultures and antibiotics as above. (6) Lung cancer Is this a current diagnosis for this admission?: Yes Diagnosis Summary: Patient under the care of Dr. Cordero. Treatments were placed on hold approximately 2 months ago r/t elevated LFTs. CT Chest (10/12/2018) shows a 6 cm partially cavitary mass in the right upper lobe. (7) Thrombocytopenia Is this a current diagnosis for this admission?: Yes Diagnosis Summary: Persistent. Platelets have trended down from 39 to 8. Has received 2 units PLT. Holding ASA/Plavix. (8) Severe sepsis Is this a current diagnosis for this admission?: Yes Diagnosis Summary: Resolved. Sepsis was present on admission. Sepsis is secondary to cellulitis. Sepsis criteria hypotension with mean arterial pressure less than 70, acute thrombocytopenia with platelets less than 100,000, acute liver dysfunction with total bilirubin greater than 1.9. The patient has elevated lactic acid as well. Patient received aggressive Received adequate IV fluid resuscitation. He did not require pressor support. Cultures and antibiotics as above. - Transfer Medications Home Medications: Multivitamin [One-A-Day Essential] 1 each PO DAILY 02/04/18 [place]-3 Fatty Acids/Fish Oil [Fish Oil 1,000 Mg Capsule] 1 each PO DAILY 02/04/18 Aspirin [Ecotrin 81 mg EC Tablet] 81 mg PO DAILY 10/07/18 Atorvastatin Calcium [Lipitor 80 mg Tablet] 80 mg PO QHS 10/07/18 Clopidogrel Bisulfate [Plavix 75 mg Tablet] 75 mg PO DAILY 10/07/18 Isosorbide Mononitrate [Ismo 20 Mg Tablet] 20 mg PO BID 10/07/18 Lisinopril [Prinivil 5 mg Tablet] 2.5 mg PO DAILY 10/07/18 Metformin HCl [Metformin HCl ER] 1,000 mg PO DAILY 10/07/18 Metoprolol Tartrate [Lopressor 25 mg Tablet] 12.5 mg PO Q12 10/07/18 Mycophenolate Mofetil [Cellcept] 500 mg PO Q12 10/07/18 Prednisone 20 mg PO Q8 10/07/18 Transfer Medications: Current Medications Acetaminophen (Tylenol 325 Mg Tablet) 650 mg PO Q4HP PRN PRN Reason: FOR PAIN OR TEMP Stop: 11/06/18 19:58 Al Hydrox/Mg Hydrox/Simethicone (Maalox Plus Susp 30 Udcup) 30 ml PO Q6HP PRN PRN Reason: HEARTBURN Stop: 11/06/18 19:58 Aspirin (Ecotrin 81 Mg Ec Tablet) 81 mg PO DAILY [facility] Stop: 11/07/18 09:59 Last Admin: 10/12/18 10:03 Dose: 81 mg Documented by: Atorvastatin Calcium (Lipitor 80 Mg Tablet) 80 mg PO QHS [facility] Stop: 11/06/18 21:59 Last Admin: 10/12/18 22:59 Dose: 80 mg Documented by: Clopidogrel Bisulfate (Plavix 75 Mg Tablet) 75 mg PO DAILY [facility] Stop: 11/07/18 09:59 Last Admin: 10/12/18 10:06 Dose: 75 mg Documented by: Dextrose (Dextrose Inj 50% Syringe (25 Gm/50 Ml)) 12.5 gm IV PRN PRN; Protocol PRN Reason: FOR BG 50-69 IN ALERT PATIENT Stop: 11/06/18 20:07 Dextrose (Dextrose Inj 50% Syringe (25 Gm/50 Ml)) 25 gm IV PRN PRN; Protocol PRN Reason: PER PROTOCOL Stop: 11/06/18 20:07 Docusate Sodium (Colace 100 Mg Capsule) 100 mg PO BID [facility] Stop: 11/07/18 09:59 Last Admin: 10/13/18 10:21 Dose: Not Given Documented by: Famotidine (Pepcid 20 Mg Tablet) 20 mg PO Q12 [facility] Stop: 11/06/18 21:59 Last Admin: 10/13/18 10:22 Dose: 20 mg Documented by: Glucagon (Glucagen Inj 1 Mg Vial) 1 mg IM PRN PRN; Protocol PRN Reason: Evaluate for BG < 70 Stop: 11/06/18 20:07 Glucose (Glutose 40% Gel 15 Gm Tube) 15 gm PO PRN PRN; Protocol PRN Reason: FOR BG 50-69 IN ALERT PATIENT Stop: 11/06/18 20:07 Glucose (Glutose 40% Gel 15 Gm Tube) 30 gm PO PRN PRN; Protocol PRN Reason: FOR BG < 50 IN ALERT PATIENT Stop: 11/06/18 20:07 Vancomycin HCl 1,000 mg/ (Dextrose) 250 mls @ 166.667 mls/hr IV Q12A [facility] Stop: 10/19/18 17:59 Last Infusion: 10/13/18 14:02 Dose: Infused Documented by: Insulin Glargine (Lantus Insulin 100 Unit/1 Ml 10 Ml) 8 unit SUBCUT DAILY [facility] Stop: 11/07/18 09:59 Last Admin: 10/13/18 10:19 Dose: 8 unit Documented by: Insulin Glargine (Lantus Insulin 100 Unit/1 Ml 10 Ml) 4 unit SUBCUT QHS [facility] Stop: 11/08/18 21:59 Last Admin: 10/12/18 23:02 Dose: 4 unit Documented by: Insulin Human Lispro (Humalog Insulin 100 Unit/1 Ml 3 Ml Vial) 0 - 16 unit SUBCUT ACHS [facility]; Protocol Stop: 11/06/18 21:59 Last Admin: 10/13/18 14:02 Dose: Not Given Documented by: Isosorbide Mononitrate (Ismo 20 Mg Tablet) 20 mg PO BID@1000,1700 [facility] Stop: 11/12/18 16:59 Lisinopril (Prinivil 5 Mg Tablet) 2.5 mg PO DAILY [facility] Stop: 11/07/18 09:59 Last Admin: 10/13/18 10:21 Dose: Not Given Documented by: Metformin HCl (Glucophage 500 Mg Tablet) 500 mg PO BIDBS [facility] Stop: 11/07/18 07:59 Last Admin: 10/13/18 10:13 Dose: Not Given Documented by: Metoprolol Tartrate (Lopressor 25 Mg Tablet) 12.5 mg PO Q12 [facility] Stop: 11/06/18 21:59 Last Admin: 10/13/18 10:22 Dose: 12.5 mg Documented by: Multivitamins (Tab-A-Wanda (Multiple Vitamin) Tablet) 1 tab PO DAILY [facility] Stop: 11/07/18 09:59 Last Admin: 10/13/18 10:23 Dose: 1 tab Documented by: Mycophenolate Mofetil (Cellcept 250 Mg Capsule) 500 mg PO Q12 [facility] Stop: 11/06/18 21:59 Last Admin: 10/13/18 10:21 Dose: 500 mg Documented by: Nicotine (Nicoderm 14 Mg/24 Hr Transdermal Patch) 1 each TD DAILY [facility] Stop: 11/09/18 10:29 Last Admin: 10/13/18 10:20 Dose: 1 each Documented by: Icnab-8-Adbb Ethyl Esters (Lovaza 1 Gm Capsule) 1 gm PO DAILY [facility] Stop: 11/07/18 09:59 Last Admin: 10/13/18 10:21 Dose: 1 gm Documented by: Oxycodone/Acetaminophen (Percocet 5-325 Mg Tablet) 1 tab PO Q6HP PRN PRN Reason: FOR PAIN SCALE 3-5 Stop: 10/14/18 19:58 Last Admin: 10/11/18 21:37 Dose: 1 tab Documented by: Prednisone (Deltasone 20 Mg Tablet) 20 mg PO Q8 [facility] Stop: 11/12/18 21:59 Promethazine HCl (Phenergan 25 Mg Tablet) 25 mg PO Q4HP PRN PRN Reason: FOR NAUSEA/VOMITING Stop: 11/06/18 19:58 Sodium Chloride (Saline Flush 2.5 Ml Monoject Prefil Syrin) 2.5 ml IV Q8 [facility] Stop: 11/06/18 21:59 Last Admin: 10/13/18 14:02 Dose: 2.5 ml Documented by: Trazodone HCl (Desyrel 50 Mg Tablet) 50 mg PO HSP PRN PRN Reason: SLEEP OR INSOMNIA Stop: 11/06/18 20:26 - Allergies Allergies/Adverse Reactions: No Known Allergies Allergy (Verified 02/04/18 19:47) - Diet/Activity Discharge Diet: Cardiac, Diabetic Discharge Activity: Activity As Tolerated Physical Exam Vital Signs: Temp Pulse Resp BP Pulse Ox 98.6 F 93 18 118/81 93 10/13/18 16:51 10/13/18 16:51 10/13/18 16:51 10/13/18 16:51 10/13/18 16:51 Intake & Output 10/12/18 10/13/18 10/14/18 06:59 06:59 06:59 Intake Total 2790 1840 945 Output Total 1100 825 250 Balance 1690 1015 695 Weight 66.2 kg 66.2 kg General appearance: PRESENT: no acute distress, well-developed, well-nourished Head exam: PRESENT: atraumatic, normocephalic Eye exam: PRESENT: conjunctiva pink, EOMI, PERRLA. ABSENT: scleral icterus Ear exam: PRESENT: normal external ear exam Mouth exam: PRESENT: moist, tongue midline Neck exam: ABSENT: carotid bruit, JVD, lymphadenopathy, thyromegaly Respiratory exam: PRESENT: clear to auscultation corey. ABSENT: rales, rhonchi, wheezes Cardiovascular exam: PRESENT: RRR. ABSENT: diastolic murmur, rubs, systolic murmur Pulses: PRESENT: normal dorsalis pedis pul Vascular exam: PRESENT: normal capillary refill GI/Abdominal exam: PRESENT: normal bowel sounds, soft. ABSENT: distended, guarding, mass, organolmegaly, rebound, tenderness Rectal exam: PRESENT: deferred Extremities exam: PRESENT: full ROM. ABSENT: calf tenderness, clubbing, pedal edema Neurological exam: PRESENT: alert, awake, oriented to person, oriented to place, oriented to time, oriented to situation, CN II-XII grossly intact. ABSENT: motor sensory deficit Psychiatric exam: PRESENT: appropriate affect, normal mood. ABSENT: homicidal ideation, suicidal ideation Skin exam: PRESENT: dry, warm, other - Edema to medial aspects of left ankle; improved from yesterday. Though, somewhat flunctuant.. ABSENT: cyanosis, rash Results Laboratory Results: 10/13/18 06:03 10/13/18 06:03 10/13/18 10/13/1810/13/19 06:03 06:03 13:39 WBC 18.6 H RBC 3.30 L Hgb 10.2 L Hct 30.5 L MCV 92 MCH 30.9 MCHC 33.5 RDW 15.0 H Plt Count 8 L* Seg Neutrophils % Not Reportable Sodium 136.4 L Potassium 3.4 L Chloride 106 Carbon Dioxide 26 Anion Gap 4 L BUN 26 H Creatinine 0.73 Est GFR ( Amer) > 60 Glucose 113 H Calcium 10.0 Total Bilirubin 3.9 H AST 57 Alkaline Phosphatase 223 H Total Protein 3.9 L Albumin 1.9 L Blood Type O POSITIVE Impressions: Ankle X-Ray 10/07/18 15:42 IMPRESSION: 1. Moderate to moderate severe arthritic changes at the left ankle maybe on the basis of inflammatory arthrititides. Soft tissue swelling. Correlation suggested. 2. No acute fracture. Chest X-Ray 10/07/18 15:42 IMPRESSION: 1. Significant interval increase in size of the right suprahilar--right upper lobe mass since the prior study dated 02/04/2018. Further evaluation with CT chest with IV contrast suggested. 2. Left-sided cardiac pacemaker, new finding since the prior examination. Abdomen/Pelvis CT 10/11/18 08:51 IMPRESSION: 1. Small bilateral pleural effusions. 2. Free fluid surrounding the liver spleen an within the pelvis. 3. No evidence of metastatic disease in the abdomen or pelvis. Chest CT 10/12/18 00:00 IMPRESSION: Worsening neoplasm in the chest with a 6 cm partially cavitary mass in the right upper lobe. There are multiple small peripheral ill-defined ground-glass nodules bilaterally concerning for metastases. There is a pericardial effusion. There is a small amount of ascites. Lower Extremity CT 10/12/18 00:00 IMPRESSION: 1. Cannot exclude an abscess in the medial aspect of the left ankle. There is marked soft tissue swelling with possible small fluid collection with some bubbles of air. 2. Extensive degenerative joint changes are seen in the tibiotalar joint as described. The findings most suggests the presence of subchondral cysts. Cannot entirely exclude osteomyelitis. Plan Discharge Plan: Transfer to [facility] once bed available. Time Spent: Greater than 30 Minutes
[2018-10-13] MEDS: PREDNISONE 20 MG TABLET PO SCH (22:29)
[2018-10-13] MEDS: ATORVASTATIN CALCIUM 80 MG TABLET PO SCH (22:29)
[2018-10-14] MEDS: METOPROLOL TARTRATE 25 MG TABLET PO SCH ×2 (00:45→11:37)
[2018-10-14] MEDS ORDERED: DILTIAZEM HCL/D5W 125 MG/125 ML RTUINJ IV PRN (02:26)
[2018-10-14] MEDS ORDERED: DILTIAZEM HCL INJ 25 MG/5 ML VIAL IV ONE (02:30)
[2018-10-14] MEDS: PREDNISONE 20 MG TABLET PO SCH (05:39)
[2018-10-14] MEDS: VANCOMYCIN HCL 1,000 MG in DEXTROSE 5%-WATER 250 ML IV SCH (06:34)
--- NOTE | 2018-10-14 07:01 | EKG REPORT ---
SEVERITY:- ABNORMAL ECG - ATRIAL FIBRILLATION ANTEROLATERAL INFARCT, AGE INDETERMINATE LOW VOLTAGE EKG : Confirmed by: Chip Geiger MD 14-Oct-2018 07:00:32
[2018-10-14 08:07] LABS: HEMATOCRIT 28.3 % (37.9-51.0); HEMOGLOBIN 9.5 g/dL (13.5-17.0); MEAN CORPUSCULAR HEMOGLOBIN 31.4 pg (27.0-33.4); MEAN CORPUSCULAR HGB CONC 33.5 g/dL (32.0-36.0); MEAN CORPUSCULAR VOLUME 94 fl (80-97); RED BLOOD COUNT 3.02 10^6/uL (4.35-5.55); RED CELL DISTRIBUTION WIDTH 15.4 % (11.5-14.0); WHITE BLOOD COUNT 26.6 10^3/uL (4.0-10.5)
[2018-10-14] MEDS: INSULIN LISPRO 100 UNIT/ML 3 ML VIAL SUBCUT SCH (08:18)
[2018-10-14] MEDS: METFORMIN HCL 500 MG TABLET PO SCH (08:19)
[2018-10-14 08:26] LABS: ANION GAP 7 (5-19); BLOOD UREA NITROGEN 30 mg/dL (7-20); CALCIUM 10.3 mg/dL (8.4-10.2); CARBON DIOXIDE 24 mmol/L (22-30); CHLORIDE 105 mmol/L (98-107); GLUCOSE 114 mg/dL (75-110); POTASSIUM 3.5 mmol/L (3.6-5.0)
[2018-10-14 08:30] LABS: VANCOMYCIN,TROUGH 27.9 ug/mL (5.0-20.0)
[2018-10-14 08:46] LABS: ABSOLUTE LYMPHOCYTES# (MANUAL) 0.3 10^3/uL (0.5-4.7); ABSOLUTE MONOCYTES # (MANUAL) 0.5 10^3/uL (0.1-1.4); BASOPHILS % (MANUAL) 0 % (0-2); EOSINOPHILS % (MANUAL) 0 % (0-6); LYMPHOCYTES % (MANUAL) 1 % (13-45); MONOCYTES % (MANUAL) 2 % (3-13); SEGMENTED NEUTROPHILS % (MAN) 97 % (42-78); TOTAL CELLS COUNTED 100
[2018-10-14 08:49] LABS: ANISOCYTOSIS SLIGHT; BURR CELLS 1+; OVALOCYTES 1+; PLATELET COMMENT DECREASED; POIKILOCYTOSIS 1+; POLYCHROMASIA SLIGHT; SCHISTOCYTES 1+; TOXIC GRANULATION 2+; TOXIC VACUOLATION PRESENT
[2018-10-14 08:51] LABS: PLATELET COUNT 18 10^3/uL (150-450)
--- NOTE | 2018-10-14 08:59 | PDOC PROGRESS REPORT ---
Subjective Progress Note for:: 10/14/18 Subjective:: Pt has been accepted for transfer but still here because there is no beds yet, third set of blood cultures drawn on 10/13 are again positive. He was confused this morning. The abscess area opened up and began to drain this morning. Reason For Visit: CELLULITIS LEFT LEG, HYPOTENSION, PRIMARY LUNG Physical Exam Vital Signs: Temp Pulse Resp BP Pulse Ox 97.6 F 104 H 24 H 98/58 L 93 10/14/18 03:11 10/14/18 08:00 10/14/18 03:11 10/14/18 08:00 10/14/18 03:11 Intake & Output 10/13/18 10/14/18 10/15/18 06:59 06:59 06:59 Intake Total 1840 1345 Output Total 825 700 Balance 1015 645 Weight 66.2 kg 66 kg General appearance: PRESENT: no acute distress, well-developed, well-nourished Head exam: PRESENT: atraumatic, normocephalic Eye exam: PRESENT: conjunctiva pink, EOMI, PERRLA. ABSENT: scleral icterus Ear exam: PRESENT: normal external ear exam Mouth exam: PRESENT: moist, tongue midline Neck exam: ABSENT: carotid bruit, JVD, lymphadenopathy, thyromegaly Respiratory exam: PRESENT: clear to auscultation corey. ABSENT: rales, rhonchi, wheezes Cardiovascular exam: PRESENT: RRR. ABSENT: diastolic murmur, rubs, systolic murmur Pulses: PRESENT: normal dorsalis pedis pul Vascular exam: PRESENT: normal capillary refill GI/Abdominal exam: PRESENT: normal bowel sounds, soft. ABSENT: distended, guarding, mass, organolmegaly, rebound, tenderness Rectal exam: PRESENT: deferred Extremities exam: PRESENT: full ROM. ABSENT: calf tenderness, clubbing, pedal edema Neurological exam: PRESENT: alert, awake, oriented to person, oriented to place, oriented to time, oriented to situation, CN II-XII grossly intact. ABSENT: motor sensory deficit Psychiatric exam: PRESENT: appropriate affect, normal mood. ABSENT: homicidal ideation, suicidal ideation Skin exam: PRESENT: dry, intact, warm. ABSENT: cyanosis, rash Results Laboratory Results: 10/14/18 07:43 10/14/18 07:43 10/13/18 10/14/1810/14/19 13:39 07:43 07:43 WBC 26.6 H RBC 3.02 L Hgb 9.5 L Hct 28.3 L MCV 94 MCH 31.4 MCHC 33.5 RDW 15.4 H Plt Count 18 L* D Seg Neutrophils % Not Reportable Sodium 135.5 L Potassium 3.5 L Chloride 105 Carbon Dioxide 24 Anion Gap 7 BUN 30 H Creatinine 0.79 Est GFR ( Amer) > 60 Glucose 114 H Calcium 10.3 H Blood Type O POSITIVE 10/11/18 09:42 Blood Blood Culture - Final Mrsa (Meth Resis Staph Aureus) 10/11/18 09:17 Blood Blood Culture - Final Mrsa (Meth Resis Staph Aureus) Impressions: Ankle X-Ray 10/07/18 15:42 IMPRESSION: 1. Moderate to moderate severe arthritic changes at the left ankle maybe on the basis of inflammatory arthrititides. Soft tissue swelling. Correlation suggested. 2. No acute fracture. Chest X-Ray 10/07/18 15:42 IMPRESSION: 1. Significant interval increase in size of the right suprahilar--right upper lobe mass since the prior study dated 02/04/2018. Further evaluation with CT chest with IV contrast suggested. 2. Left-sided cardiac pacemaker, new finding since the prior examination. Abdomen/Pelvis CT 10/11/18 08:51 IMPRESSION: 1. Small bilateral pleural effusions. 2. Free fluid surrounding the liver spleen an within the pelvis. 3. No evidence of metastatic disease in the abdomen or pelvis. Chest CT 10/12/18 00:00 IMPRESSION: Worsening neoplasm in the chest with a 6 cm partially cavitary mass in the right upper lobe. There are multiple small peripheral ill-defined ground-glass nodules bilaterally concerning for metastases. There is a pericardial effusion. There is a small amount of ascites. Lower Extremity CT 10/12/18 00:00 IMPRESSION: 1. Cannot exclude an abscess in the medial aspect of the left ankle. There is marked soft tissue swelling with possible small fluid collection with some bubbles of air. 2. Extensive degenerative joint changes are seen in the tibiotalar joint as de scribed. The findings most suggests the presence of subchondral cysts. Cannot entirely exclude osteomyelitis. Assessment & Plan - Diagnosis (1) Cellulitis Qualifiers: Site of cellulitis: extremity Site of cellulitis of extremity: lower extremity Laterality: left Qualified Code(s): L03.116 - Cellulitis of left lower limb Is this a current diagnosis for this admission?: Yes Plan: Abscess finally draining, it is being packed now, continue with IV antibiotics. (2) Acute hepatic failure Qualifiers: Hepatic coma status: without hepatic coma Qualified Code(s): K72.00 - Acute and subacute hepatic failure without coma Is this a current diagnosis for this admission?: Yes Plan: Continued, hopeful transition to tertiary care center soon (3) Thrombocytopenia Is this a current diagnosis for this admission?: Yes Plan: CBC pending this morning
[2018-10-14] MEDS: NICOTINE 14 MG/24 HR PATCH.TD24 TD SCH (11:34)
[2018-10-14] MEDS: MYCOPHENOLATE MOFETIL 250 MG CAPSULE PO SCH (11:35)
[2018-10-14] MEDS: OMEGA-3 ACID ETHYL ESTERS 1 GM CAPSULE PO SCH (11:35)
[2018-10-14] MEDS: FAMOTIDINE 20 MG TABLET PO SCH (11:36)
[2018-10-14] MEDS: MULTIVITAMIN TABLET PO SCH (11:37)
[2018-10-14] MEDS: LISINOPRIL 5 MG TABLET PO SCH (11:37)
[2018-10-14] MEDS: DOCUSATE SODIUM 100 MG CAPSULE PO SCH (11:38)
[2018-10-14] MEDS: INSULIN GLARGINE,HUM.REC.ANLOG 1,000 UNIT/10 ML VIAL SUBCUT SCH (11:40)
[2018-10-14] MEDS: ISOSORBIDE MONONITRATE 20 MG TABLET PO SCH (11:43)
[2018-10-14 12:19] VITALS: BP 88/56
--- NOTE | 2018-10-14 15:13 | PDOC PROGRESS REPORT ---
Subjective Progress Note for:: 10/14/18 Subjective:: The patient is a 63-year-old male with a past medical history significant for active right lung cancer (currently under treatment by Dr. 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 The patient was seen on morning rounds. He was found resting in bed comfortably on room air. He is sleeping but woke easily. Orientated to self, hospital, situation, but overall confused and unable to participate in conversation. Reason For Visit: CELLULITIS LEFT LEG, HYPOTENSION, PRIMARY LUNG Physical Exam Vital Signs: Temp Pulse Resp BP Pulse Ox 97.6 F 98 24 H 88/56 L 93 10/14/18 03:11 10/14/18 11:00 10/14/18 03:11 10/14/18 11:00 10/14/18 03:11 Intake & Output 10/13/18 10/14/18 10/15/18 06:59 06:59 06:59 Intake Total 1840 1345 Output Total 825 700 Balance 1015 645 Weight 66.2 kg 66 kg General appearance: PRESENT: no acute distress, cooperative, disheveled, thin, well-developed, well-nourished Head exam: PRESENT: atraumatic, normocephalic Eye exam: PRESENT: conjunctiva pink, EOMI, PERRLA. ABSENT: scleral icterus Ear exam: PRESENT: normal external ear exam Mouth exam: PRESENT: moist, tongue midline Teeth exam: PRESENT: poor dentation Neck exam: ABSENT: carotid bruit, JVD, lymphadenopathy, thyromegaly Respiratory exam: PRESENT: clear to auscultation corey, symmetrical, unlabored. ABSENT: rales, rhonchi, wheezes Cardiovascular exam: PRESENT: irregular rhythm, +S1, +S2. ABSENT: diastolic murmur, rubs, systolic murmur Pulses: PRESENT: normal dorsalis pedis pul Vascular exam: PRESENT: normal capillary refill GI/Abdominal exam: PRESENT: normal bowel sounds, soft. ABSENT: distended, g uarding, mass, organolmegaly, rebound, tenderness Rectal exam: PRESENT: deferred Extremities exam: PRESENT: full ROM, +2 edema - nonpitting edema BLE. ABSENT: calf tenderness, clubbing, pedal edema Neurological exam: PRESENT: alert, awake, oriented to person, oriented to place, oriented to situation, CN II-XII grossly intact, other - Confused. ABSENT: oriented to time, motor sensory deficit Psychiatric exam: PRESENT: appropriate affect, normal mood. ABSENT: homicidal ideation, suicidal ideation Skin exam: PRESENT: dry, warm, other - Dry dressing in place; patient's wound to the medial aspect of his ankle has opened and began draining purulent fluid.. ABSENT: cyanosis, rash Results Laboratory Results: 10/14/18 07:43 10/14/18 07:43 10/13/18 10/14/18 10/14/18 13:39 07:43 07:43 WBC 26.6 H RBC 3.02 L Hgb 9.5 L Hct 28.3 L MCV 94 MCH 31.4 MCHC 33.5 RDW 15.4 H Plt Count 18 L* D Seg Neutrophils % Not Reportable Sodium 135.5 L Potassium 3.5 L Chloride 105 Carbon Dioxide 24 Anion Gap 7 BUN 30 H Creatinine 0.79 Est GFR ( Amer) > 60 Glucose 114 H Calcium 10.3 H Blood Type O POSITIVE 10/11/18 09:42 Blood Blood Culture - Final Mrsa (Meth Resis Staph Aureus) 10/11/18 09:17 Blood Blood Culture - Final Mrsa (Meth Resis Staph Aureus) Impressions: Ankle X-Ray 10/07/18 15:42 IMPRESSION: 1. Moderate to moderate severe arthritic changes at the left ankle maybe on the basis of inflammatory arthrititides. Soft tissue swelling. Correlation suggested. 2. No acute fracture. Chest X-Ray 10/07/18 15:42 IMPRESSION: 1. Significant interval increase in size of the right suprahilar--right upper lobe mass since the prior study dated 02/04/2018. Further evaluation with CT chest with IV contrast suggested. 2. Left-sided cardiac pacemaker, new finding since the prior examination. Abdomen/Pelvis CT 10/11/18 08:51 IMPRESSION: 1. Small bilateral pleural effusions. 2. Free fluid surrounding the liver spleen an within the pelvis. 3. No evidence of metastatic disease in the abdomen or pelvis. Chest CT 10/12/18 00:00 IMPRESSION: Worsening neoplasm in the chest with a 6 cm partially cavitary mass in the right upper lobe. There are multiple small peripheral ill-defined ground-glass nodules bilaterally concerning for metastases. There is a pericardial effusion. There is a small amount of ascites. Lower Extremity CT 10/12/18 00:00 IMPRESSION: 1. Cannot exclude an abscess in the medial aspect of the left ankle. There is marked soft tissue swelling with possible small fluid collection with some bubbles of air. 2. Extensive degenerative joint changes are seen in the tibiotalar joint as described. The findings most suggests the presence of subchondral cysts. Cannot entirely exclude osteomyelitis. Assessment and Plan - Diagnosis (1) Cellulitis Qualifiers: Site of cellulitis: extremity Site of cellulitis of extremity: lower extremity Laterality: left Qualified Code(s): L03.116 - Cellulitis of left lower limb Is this a current diagnosis for this admission?: Yes Plan: Overall improved; however abscess to medial malleolus has opened and is now draining purulent fluid. Patient presented with cellulitis to the left lower extremity with associated lymphangitis. WBCs trending up; 26.6 today. He has been afebrile greater than 48 hours and is clinically improved. Blood cultures (10/07/2018; both sets) grew MRSA. Repeat blood cultures (10/11/18) positive for MRSA Blood cultures (10/13/2018) w/ Gm positive cocci both sets. CT lower extremity shows possible abscess formation w/ air bubbles; can not exclude osteomyelitis. Transfer [facility] today. Continue IV vancomycin. (2) Bacteremia Is this a current diagnosis for this admission?: Yes Plan: Secondary to cellulitis. Original blood cultures (10/07/2018; 4 of 4 bottles) positive for MRSA. Original blood cultures (10/11/2018; 4 of 4 bottles) positive for MRSA. Repeat blood cultures (10/13/2018) show Gm positive cocci in both sets. Patient was initially treated with IV vancomycin and cefepime; pain is discontinued today. Continue IV vancomycin. Infectious diseases consulted; Recommends further evaluation for osteomyelitis and SANNA to rule out endocarditis. Continue to repeat blood cultures q. 20 every 48 hours until clear. Continue IV vancomycin. Duration of treatment should be a minimum of 4 weeks but could be longer depending upon results of osteomyelitis evaluation and SANNA. (3) Diabetes mellitus type 2 in nonobese Is this a current diagnosis for this admission?: Yes Plan: Hemoglobin A1c 9.5%. Continue home dose metformin. Continue Lantus twice daily. Accu-Cheks before meals and at bedtime with sliding scale insulin. Consistent carb diet. (4) Hyponatremia Is this a current diagnosis for this admission?: Yes Plan: Overall improved; 136.1 today. IV fluids are discontinued. Continue to monitor with daily chemistries. (5) Leukocytosis Qualifiers: Leukocytosis type: bandemia Qualified Code(s): D72.825 - Bandemia Is this a current diagnosis for this admission?: Yes Plan: Worsenign. Secondary to #1 and 2. Cultures and antibiotics as above. (6) Lung cancer Qualifiers: Laterality: right Lung location: upper lobe of lung Qualified Code(s): C34.11 - Malignant neoplasm of upper lobe, right bronchus or lung Is this a current diagnosis for this admission?: Yes Plan: Dr. Cordero is consulted; management per his expertise. (7) Thrombocytopenia Is this a current diagnosis for this admission?: Yes Plan: PLT 12 today s/p 1 unit PLT. Heme/Onc consulted; defer to their expertise. (8) Severe sepsis Is this a current diagnosis for this admission?: Yes Plan: Resolved; though w/ early evidence of redevelopment (afib RVR, persistent hypotension, confusion, increased WBC). Sepsis was present on admission. Sepsis is secondary to cellulitis. Sepsis criteria hypotension with mean arterial pressure less than 70, acute thrombocytopenia with platelets less than 100,000, acute liver dysfunction with total bilirubin greater than 1.9. The patient has elevated lactic acid as well. Patient received aggressive IV fluid resuscitation. He did not require pressor support. Cultures and antibiotics as above. (9) Atrial fibrillation with RVR Is this a current diagnosis for this admission?: Yes Plan: Patient was placed on a diltiazem drip, no rate controlled in the mid 90s. He was not started on anticoagulation secondary to platelets of 18. - Time Time Spent with patient: 35 or more minutes Medications reviewed and adjusted accordingly: Yes Anticipated discharge: [facility]
== END 2018-10-14 13:30 | disposition short-term general hospital (02) | DRG 871 ==
LOC: ER 15:21 → EH 17:29 → 3W 20:19
PROVIDERS: ADMIT Hospitalist; ATTEND Hospitalist
DX: A41.02 Sepsis due to Methicillin resistant Staphylococcus aureus (principal); K72.00 Acute and subacute hepatic failure without coma; E87.1 Hypo-osmolality and hyponatremia; C34.11 Malignant neoplasm of upper lobe, right bronchus or lung; L03.116 Cellulitis of left lower limb; M86.9 Osteomyelitis, unspecified; E11.69 Type 2 diabetes mellitus with other specified complication; D69.6 Thrombocytopenia, unspecified; I36.1 Nonrheumatic tricuspid (valve) insufficiency; I50.9 Heart failure, unspecified; I48.91 Unspecified atrial fibrillation; R65.20 Severe sepsis without septic shock; I25.10 Atherosclerotic heart disease of native coronary artery without angina pectoris; M19.072 Primary osteoarthritis, left ankle and foot; I34.0 Nonrheumatic mitral (valve) insufficiency; I70.0 Atherosclerosis of aorta; F17.210 Nicotine dependence, cigarettes, uncomplicated; R63.4 Abnormal weight loss; Z79.4 Long term (current) use of insulin; Z79.82 Long term (current) use of aspirin; Z79.52 Long term (current) use of systemic steroids; Z95.810 Presence of automatic (implantable) cardiac defibrillator; I25.2 Old myocardial infarction; Z79.899 Other long term (current) drug therapy; Z68.24 Body mass index [BMI] 24.0-24.9, adult; Z80.9 Family history of malignant neoplasm, unspecified; Z82.49 Family history of ischemic heart disease and other diseases of the circulatory system
CPT/HCPCS: 36415; 36430; 71046; 71260; 74177; 80048; 80053; 80202; 81001; 82140; 82565; 82962; 83036; 83605; 83735; 85025; 85027; 85384; 85610; 85730; 86900; 86901; 87040; 87070; 87077; 87086; 87186; 93005; 93010; 93306; 93971; 96361; 96365; 96368; 96375; 99291; J0692; J1720; J1815; J3010; J3370; J3490; J7030; J7040; J7060; J7120; J7512; J7517; P9035